=== PATIENT | female | born 1950 ===

== ENCOUNTER → 2020-04-24 09:57 | Outpatient (BNVA) | payer MEDICARE, SELFPAY | PROVIDERS: PCP Family Medicine; Referring Provider Family Medicine; Visit Provider Surgery | DX: Z85.3 Personal history of malignant neoplasm of breast (principal) | CPT/HCPCS: 99213 ==

== ENCOUNTER 2020-05-03 11:39 | Emergency (ER) | payer MEDICARE, SELFPAY ==
--- NOTE | 2020-05-03 13:00 | ED_ITS ---
HPI - SOB/Dyspnea General Chief Complaint: Dyspnea Stated Complaint: sob Time Seen by Provider: 05/03/20 13:00 Source: patient Mode of arrival: ambulatory Limitations: no limitations History of Present Illness HPI Narrative: patient has been using her nebulizer for 3-4 days but still is wheezing. Patient states that her daughter is in the house. Not currently on steroids MD elicited complaint: shortness of breath and asthma attack Pertinent past history: asthma Onset (ago): week(s) Timing: intermittent Severity: mild Exacerbating factors: movement Known history of: asthma Associated symptoms: denies other symptoms Treatment prior to arrival: bronchodilator Related Data Home Medications Medication Instructions Recorded Confirmed albuterol sulfate mg INHALATION Q4H 04/24/20 amlodipine 2.5 mg tablet 2.5 mg PO DAILY 04/24/20 atorvastatin 40 mg tablet mg PO 04/24/20 cholecalciferol (vitamin D3) 25 25 mcg PO DAILY 04/24/20 mcg (1,000 unit) capsule clonazepam 0.5 mg tablet 0.5 mg PO BEDTIME 04/24/20 fluoxetine 20 mg capsule 20 mg PO DAILY 04/24/20 fluticasone 250 mcg-salmeterol 50 INHALATION 04/24/20 mcg/dose blistr powdr for inhalation ibuprofen 800 mg tablet mg PO 04/24/20 irbesartan 300 mg tablet 300 mg PO QAM 04/24/20 melatonin 5 mg tablet 5 mg PO BEDTIME 04/24/20 montelukast 10 mg tablet 10 mg PO DAILY 04/24/20 omeprazole 20 mg capsule,delayed 20 mg PO QAM 04/24/20 release tamoxifen 20 mg tablet 20 mg PO BEDTIME 04/24/20 tiotropium bromide 18 mcg capsule 1 cap INHALATION DAILY 04/24/20 with inhalation device Previous Rx's Medication Instructions Recorded prednisone 60 mg PO DAILY #15 tab 05/03/20 Allergies Allergy/AdvReac Type Severity Reaction Status Date / Time penicillin G [Penicillin G] Allergy Mild RASH Verified 05/03/20 15:02 potassium [POTASSIUM] Allergy Unknown PEDAL EDEMA Verified 05/03/20 15:02 [facility] Past Medical History Medical History Asthma Asthma History of breast cancer Hypertension Smoker Surgical History History of bronchoscopy (~04/28/11) History of colonoscopy (~09/10/08) History of esophagogastroduodenoscopy (EGD) (~08/09/11) History of excision of mass (~06/01/19) History of lumpectomy of right breast (~05/10/19) History of right breast biopsy (~04/26/19) History of toe surgery Family History Family History Mother History of breast cancer Sister History of breast cancer History of colon polyps History of colitis History of colon cancer Maternal Aunt History of breast cancer Social History Social History (Updated 04/24/20 @ 10:15 by Kathrin Mason Coby) Alcohol intake: never Smoking Status: Light tobacco smoker Use of substances other than those prescribed or required for medical reasons: No Advance Directives: No Advance Directives Information Provided: No Physical Exam Vital Signs: Vital Signs: Vital Signs Temp Pulse Resp BP Pulse Ox 05/03/20 15:02 98.3 F 77 18 124/63 92 05/03/20 14:00 98.4 F 77 18 128/56 L 92 05/03/20 13:44 98 05/03/20 13:42 98.4 F 94 20 144/75 H 59 L Body Mass Index 24.7 Course Course Course Narrative: nurse concerned about hypoxia, turned off O2, oxygen sat 99% Reevaluation(s) Reevaluation #1: breathing much better, pulse ox 93% on room air MDM - SOB/Dyspnea MDM Narrative Medical decision making narrative: started steroids, breathing much better, COVID negative, will dc home Differential Diagnosis Differential diagnosis: Likely acute exacerbation of chronic obstructive airways disease and asthma with exacerbation Lab Data Labs: Lab Results 05/03/20 Range/Units 13:38 Coronavirus (PCR) NEGATIVE (Negative) Discharge Plan Discharge Clinical Impression: Acute exacerbation of chronic obstructive airways disease Asthma Qualifiers: Asthma severity: mild Asthma persistence: persistent Asthma complication type: with acute exacerbation Qualified Code(s): J45.31 - Mild persistent asthma with (acute) exacerbation Patient Disposition: Home, Self-Care Instructions: Asthma (ED), COPD (Chronic Obstructive Pulmonary Disease) (ED) Additional Instructions: return for worsening shortness of breath Prescriptions: New prednisone 20 mg tablet 60 mg PO DAILY Qty: 15 RF: 0 No Action ibuprofen 800 mg tablet PO RF: 0 melatonin 5 mg tablet 5 mg PO BEDTIME RF: 0 Spiriva with HandiHaler 18 mcg capsule, w/inhalation device 1 cap inhalation DAILY RF: 0 irbesartan 300 mg tablet 300 mg PO QAM RF: 0 montelukast 10 mg tablet 10 mg PO DAILY RF: 0 amlodipine 2.5 mg tablet 2.5 mg PO DAILY RF: 0 clonazepam 0.5 mg tablet 0.5 mg PO BEDTIME RF: 0 albuterol sulfate 2.5 mg /3 mL (0.083 %) solution for nebulization inhalation Q4H RF: 0 fluticasone propion-salmeterol 250-50 mcg/dose blister with device inhalation RF: 0 cholecalciferol (vitamin D3) 25 mcg (1,000 unit) capsule 25 mcg PO DAILY RF: 0 omeprazole 20 mg capsule,delayed release(DR/EC) 20 mg PO QAM RF: 0 tamoxifen 20 mg tablet 20 mg PO BEDTIME RF: 0 fluoxetine 20 mg capsule 20 mg PO DAILY RF: 0 atorvastatin 40 mg tablet PO RF: 0 Referrals: Vivienne Marques MD [Primary Care Provider] - 2 days
[2020-05-03 13:42] VITALS: BP 144/75; PULSE 94; RESP 20; TEMP 36.9; O2SAT 59
[2020-05-03 13:44] VITALS: O2SAT 98
--- NOTE | 2020-05-03 13:44 | PC.NURSE ---
currently awaiting carpenter helper to triage patient, patient understands some [place]ong [place]er, covid swab performed, pt put on lunchroom monitor,- nsr 80s, patient began coughing and her o2 sat dropped to 58-59%, patient placed on 4l o2 and recovered to 985 with deep breathing, will continue to monitor.
[2020-05-03] MEDS: predniSONE 20 MG TABLET 60 MG PO (13:58)
--- NOTE | 2020-05-03 13:58 | PC.NURSE ---
patient medicated per order, rt coming to do updraft, continuing to wait for hand tool filer
[2020-05-03 14:00] VITALS: BP 128/56; PULSE 77; RESP 18; TEMP 36.9; O2SAT 92; BMI 24.7
--- NOTE | 2020-05-03 14:03 | PC.NURSE ---
REGINA, DAUGHTER TO BE CALLED WITH UPDATES, AND FOR RIDE HOME. REGINA: [phone]
[2020-05-03 14:51] LABS: SARS COV2 PCR INHOUSE NEGATIVE (Negative)
[2020-05-03 15:02] VITALS: BP 124/63; PULSE 77; RESP 18; TEMP 36.8; O2SAT 92
--- NOTE | 2020-05-03 15:19 | PC.NURSE ---
DAUGHTER REGINA CALLED [phone] WISHES TO BE CALLED WHEN HER MOTHER NEEDS TO BE PICKED UP.
--- NOTE | 2020-05-03 15:20 | PC.NURSE ---
PATIENT A&OX3, SPEAKING IN FULL SENTENCES, DAUGHTER CALLED NUMBER GIVEN IN PREVIOUS NOTE AND WILL BE HER RIDE HOME WHEN DISCHARGED. PATIENT STATES SHE DOES FEEL BETTER THAN WHEN SHE CAME IN, VITALS ARE STABLE ALTHOUGH O2 SAT GOING BETWEEN 92-94% ON ROOM AIR, WILL CONTINUE TO MONITOR.
== END 2020-05-03 16:04 | disposition home or self-care (01) ==
PROVIDERS: Emergency Provider Emergency Medicine; PCP Family Medicine
DX: J45.31 Mild persistent asthma with (acute) exacerbation (principal); F17.200 Nicotine dependence, unspecified, uncomplicated; Z20.828 Contact with and (suspected) exposure to other viral communicable diseases; Z71.6 Tobacco abuse counseling; Z79.899 Other long term (current) drug therapy
CPT/HCPCS: 87635; 99284

== ENCOUNTER 2020-07-08 14:17 | Emergency (ER) | payer MEDICARE, SELFPAY ==
[2020-07-08 14:43] VITALS: BP 183/96; PULSE 83; RESP 16; TEMP 36.5; O2SAT 97; BMI 59.3
--- NOTE | 2020-07-08 14:48 | XR_ITS ---
EXAMINATION: XR CHEST CLINICAL INFORMATION: Asthma. History right breast cancer status post lumpectomy 05/10/2019. COMPARISON: Chest radiographs 03/08/2018, 05/25/2017; CT abdomen 05/25/2017. TECHNIQUE: Frontal view of the chest was obtained. FINDINGS: There is old pleural parenchymal scarring apical right upper lobe similar to prior study 2018. Irregular convexity at right medial diaphragm is stable from prior radiographs and consistent with areolar tissue on abdomen CT. The lungs show no airspace consolidation or interval groundglass opacity or effusion. The heart is normal in size. The hilar contours are stable. There is a sliding hiatal hernia again seen, or approximately 5.7 cm in diameter. No visible acute bony abnormality. XR/XR chest 1V IMPRESSION: No acute intrathoracic disease.
== END 2020-07-08 20:59 | disposition left against medical advice (07) ==
PROVIDERS: Emergency Provider Student in an Organized Health Care Education/Training Program; PCP Family Medicine
DX: J45.909 Unspecified asthma, uncomplicated (principal)
CPT/HCPCS: 71045; 99282; 99283

== ENCOUNTER → 2020-07-28 10:26 | Outpatient (BNV) | payer MEDICARE, SELFPAY | PROVIDERS: PCP Family Medicine; Visit Provider Internal Medicine | DX: C50.911 Malignant neoplasm of unspecified site of right female breast (principal) | CPT/HCPCS: 99212; 99213; 99214; G2211 ==

== ENCOUNTER 2020-11-10 10:34 | Outpatient (REF) | payer MEDICARE, SELFPAY | END 2020-11-10 10:35 | disposition home or self-care (01) | LOC: HO.LAB 10:34 | PROVIDERS: Visit Provider Internal Medicine | DX: Z20.822 Contact with and (suspected) exposure to COVID-19 (principal) | CPT/HCPCS: C9803; U0003; U0005 ==

== ENCOUNTER 2021-01-07 08:25 | Outpatient (REF) | payer MEDICARE, SELFPAY ==
--- NOTE | ~2021-01-07 | XR_ITS ---
EXAMINATION: XR CHEST CLINICAL INFORMATION: Cough, shortness of breath COMPARISON: 07/08/2020 TECHNIQUE: 2 views of the chest were obtained. FINDINGS: There is an ill-defined opacity posteriorly on the lateral view only, possibly at the left lung base. No pleural effusion. Slight increase in interstitial markings and peribronchial cuffing which may be inflammatory. Stable cardiomediastinal silhouette. XR/XR chest 2V IMPRESSION: Subtle interstitial prominence and possible ill-defined opacity posteriorly in the left lower lobe on the lateral view. Recommend short-term follow-up chest radiographs or chest CT to ensure resolution.
== END 2021-01-07 08:26 | disposition home or self-care (01) ==
LOC: HO.XRAY 08:25
PROVIDERS: Absent Provider Family Medicine; PCP Family Medicine; Visit Provider Nurse Practitioner Family
DX: R05 Cough (principal); R06.02 Shortness of breath
CPT/HCPCS: 71046

== ENCOUNTER → 2021-01-09 10:44 | Outpatient (BNVA) | payer MEDICARE, SELFPAY | PROVIDERS: PCP Family Medicine; Visit Provider Internal Medicine Pulmonary Disease | DX: J44.9 Chronic obstructive pulmonary disease, unspecified (principal); R06.00 Dyspnea, unspecified; R91.8 Other nonspecific abnormal finding of lung field | CPT/HCPCS: 99202 ==

== ENCOUNTER 2021-02-04 10:45 | Inpatient (IN) | payer MEDICARE, SELFPAY ==
[2021-02-04] VITALS (8 sets, daily range): BP systolic 107–130; BP diastolic 60–76; PULSE 93–104; RESP 16–26; TEMP 35.5–37.2; O2SAT 88–100; BMI 23.6
--- NOTE | ~2021-02-04 | CT_ITS ---
EXAMINATION: CT FACIAL BONES WITHOUT CONTRAST CLINICAL INFORMATION: Fall COMPARISON: Head CT obtained the same day TECHNIQUE: Axial images through the facial bones without contrast. Sagittal and coronal reconstructions on the technologist workstation were performed. This CT examination was performed using dose optimization techniques as appropriate, variously including the following: *Automated exposure control *Adjustment of mA and/or kV according to patient size (this includes techniques or standardized protocols for targeted exams where dose is matched to indication/reason for exam; i.e. extremities or head) *Use of iterative reconstruction technique DLP: 363 mGy-cm FINDINGS: There is no acute maxillofacial fracture. The pterygoid plates are intact. The zygomatic arches are intact. The lamina papyracea are intact. The orbital rims are intact. The paranasal sinuses are well-aerated. There are mild inflammatory changes with membranous soft tissue thickening in the right frontal and maxillary and sphenoid sinuses. The nasal septum is midline. The ostiomeatal complexes are clear. The lamina papyracea are intact. The ethmoid roofs are symmetric. The carotid canals are normally covered by bone. No maxillary periapical disease is seen. The mastoid air cells and visualized middle ear cavities are well-aerated. The orbits are normal. The TMJs are unremarkable. The imaged portions of the brain demonstrate no acute abnormality. CT/CT facial bones wo con IMPRESSION: Mild inflammatory changes in the sinuses. No fracture seen.
--- NOTE | ~2021-02-04 | US_ITS ---
EXAMINATION: US VENOUS ULTRASOUND WITH DOPPLER LOWER EXTREMITY, BILATERAL CLINICAL INFORMATION: Pulmonary emboli. Evaluate for DVT COMPARISON: None TECHNIQUE: Ultrasound of the deep veins is performed from the hip to the calf with compression sonography and color and pulse Doppler assessment. Spectral analysis with color-flow imaging is performed. FINDINGS: RIGHT: There is normal venous compression and respiratory variation and augmented flow. The visualized common femoral vein, superficial femoral vein, profunda femoral vein, popliteal vein, and the trifurcation region shows no evidence of deep venous thrombosis. There is no significant popliteal fossa cyst. LEFT: There is normal venous compression and respiratory variation and augmented flow. The visualized common femoral vein, superficial femoral vein, profunda femoral vein, popliteal vein, and the trifurcation region shows no evidence of deep venous thrombosis. There is no significant popliteal fossa cyst. If the patient's symptoms persist, followup ultrasound in 5 days 7 days might be of value to exclude proximal propagation from a non-visualized calf vein. US/US venous duplex LE BI IMPRESSION: No DVT demonstrated in the bilateral lower extremity.
--- NOTE | ~2021-02-04 | CT_ITS ---
EXAMINATION: CT HEAD WITHOUT CONTRAST CLINICAL INFORMATION: Fall COMPARISON: Previous brain MRI September 2018 TECHNIQUE: Contiguous axial imaging was performed from the skull base to vertex without intravenous administration of contrast. This CT examination was performed using dose optimization techniques as appropriate, variously including the following: *Automated exposure control *Adjustment of mA and/or kV according to patient size (this includes techniques or standardized protocols for targeted exams where dose is matched to indication/reason for exam; i.e. extremities or head) *Use of iterative reconstruction technique DLP: 753 mGy-cm FINDINGS: There is no evidence of an extra-axial collection. There is no evidence of intra-axial or extra-axial hemorrhage. There is age-appropriate prominence of the ventricles and extra-axial CSF spaces. There is mild periventricular white matter disease. No mass, mass effect or infarct is seen. Review at bone windows is normal. No skull fracture is seen. There are mild inflammatory changes of the right frontal and maxillary sinuses. CT/CT head/brain wo con IMPRESSION: No acute findings.
--- NOTE | ~2021-02-04 | CT_ITS ---
EXAMINATION: CT CERVICAL SPINE WITHOUT CONTRAST CLINICAL INFORMATION: Dizziness. Trauma. COMPARISON: None TECHNIQUE: Axial images through the cervical spine without contrast. Sagittal and coronal reconstructions on the technologist workstation were performed. This CT examination was performed using dose optimization techniques as appropriate, variously including the following: *Automated exposure control *Adjustment of mA and/or kV according to patient size (this includes techniques or standardized protocols for targeted exams where dose is matched to indication/reason for exam; i.e. extremities or head) *Use of iterative reconstruction technique DLP: 344 mGy-cm FINDINGS: There is slight head tilt to the left, curvature of the proximal cervical spine to the right and lower cervical and upper thoracic spine to the left. Bone alignment is otherwise normal. No fracture or dislocation is seen. There is degenerative spondylosis at C3-C4, C4-C5 and C5-C6. There is mild disc space narrowing at C5-C6. Prevertebral soft tissues are normal. There is a left thyroid nodule. This measures approximately 1 x 1.5 cm. This is increased in size from previous chest CT scans. Follow-up thyroid ultrasound recommended. The visualized proximal thoracic esophagus is slightly distended and air-filled. CT/CT cervical spine wo con IMPRESSION: Degenerative changes. No fracture or dislocation seen. Left thyroid nodule increased in size from prior exams. Follow-up thyroid ultrasound recommended.
--- NOTE | ~2021-02-04 | CT_ITS ---
EXAMINATION: CT ANGIOGRAM OF THE CHEST WITH AND WITHOUT CONTRAST (CT PULMONARY ANGIOGRAM FOR PE) CLINICAL INFORMATION: Reason for Exam sob c cough hx of covid hypoxic ? pe COMPARISON: Previous chest x-ray most recent December [address] April 2012 TECHNIQUE: Prior to contrast administration, noncontrast localization images were obtained. Subsequently, multidetector volumetric imaging was performed from the thoracic inlet to below the diaphragms following the administration of 65 mL Omnipaque 350 intravenous contrast. No contrast reaction reported Sagittal, coronal, and MIP oblique sagittal reformatted images were obtained on the CT workstation, uploaded to PACS, and reviewed. This CT examination was performed using dose optimization techniques as appropriate, variously including the following: *Automated exposure control *Adjustment of mA and/or kV according to patient size (this includes techniques or standardized protocols for targeted exams where dose is matched to indication/reason for exam; i.e. extremities or head) *Use of iterative reconstruction technique Total exam dose-length product 360 mGy-cm FINDINGS: QUALITY OF STUDY/CONTRAST BOLUS: Satisfactory. PULMONARY ARTERIES: There are multiple segmental and subsegmental left pulmonary emboli. There are smaller subsegmental right lower lobe pulmonary emboli. THORACIC AORTA: No aneurysm or dissection. LUNG: There is evidence of emphysema. There is volume loss to the right upper lobe. There is atelectasis and bronchiectasis in the right upper lobe. This is similar to 2012 exam. There are increased peripheral interstitial markings in the right upper lobe and right middle lobe and pleural thickening likely related to chest wall radiation. There are new scattered nodular opacities seen in the left upper and left lower lobes and the posterior basal segment of the right lower lobe. The largest measures approximately 1 cm. PLEURA: No pleural effusion or pneumothorax. MEDIASTINUM: There is a probable small esophageal hernia. The esophagus is dilated and filled. The heart does not appear enlarged. There is no pericardial effusion. There are no enlarged hilar or mediastinal lymph nodes.. CHEST WALL/AXILLA: No axillary or internal mammary lymphadenopathy. OSSEOUS STRUCTURES: There are degenerative changes of the spine. UPPER ABDOMEN: Unremarkable. No reflux of contrast into the hepatic veins to suggest elevated right heart pressures. CT/CT angio chest PE protocol IMPRESSION: Bilateral pulmonary emboli, left greater than right. Probable small esophageal hernia. Dilated fluid-filled thoracic esophagus. Possible aspiration should be considered. Stable right upper lobe volume loss, atelectasis and bronchiectasis. Probable post chest wall radiation changes in the right middle and right upper lobes. New scattered small nodular opacities, left greater than right. Chest CT appearance is nonspecific. This may represent an infectious or inflammatory process. Neoplasm neoplasm cannot be excluded and chest CT follow-up is recommended. Findings were discussed with Lexie Reeves by telephone on 02/04/2021 at 4:30 PM. VTE:
--- NOTE | 2021-02-04 11:11 | ECG_ITS ---
Test Reason : FALL Blood Pressure : / mmHG Vent. Rate : 101 BPM Atrial Rate : 101 BPM P-R Int : 128 ms QRS Dur : 122 ms QT Int : 382 ms P-R-T Axes : 070 058 029 degrees QTc Int : 495 ms Sinus tachycardia with Premature atrial complexes Non-specific intra-ventricular conduction delay Abnormal ECG When compared to the previous EKG of 23 jul 2018, Intra-ventricular conduction delay present Referred By: Lexie Mcgrath Electronically Signed By:CEDRIC HOLBROOK
[2021-02-04] MEDS: Lidocaine HCl 1 % MPF 5 ML VIAL SUBCUT (11:22)
[2021-02-04] MEDS: 0.9 % Sodium Chloride 1,000 ML 999 ML IVCONT ×2 (11:22→17:40)
[2021-02-04 11:54] LABS: MANUAL DIFF FLAG NO
[2021-02-04 11:55] LABS: Venous Blood Gas Refer to POC result
[2021-02-04 11:56] LABS: VBG Base Excess -5.3 mmol/L; VBG HCO3 20 mmol/L (22-26); VBG pCO2 41 mmHg; VBG pO2 59 mmHg
[2021-02-04 11:56] LABS: Basophils Absolute Auto 0.1 X10*3/uL (0.0-0.2); Basophils Percent Auto 0.5 % (0-2); Eosinophils Absolute Auto 0.8 X10*3/uL (0.0-0.4); Eosinophils Percent Auto 5.7 % (0-4); Hematocrit 32.6 % (37-47); Hemoglobin 9.9 g/dl (12.0-16.0); Imm Gran Abs Auto 0.08 X10*3/uL (0.00-0.03); Imm Gran Pct Auto 0.6 % (0.0-0.4); Lymphocytes Absolute Auto 1.2 X10*3/uL (1.2-4.9); Lymphocytes Percent Auto 8.4 % (20-40); Mean Corpuscular HGB Conc 30.4 g/dl (31.0-35.0); Mean Corpuscular Hemoglobin 25.5 pg (27.0-33.0); Mean Platelet Volume 10.4 fL (9.4-12.3); Monocytes Absolute Auto 0.5 X10*3/uL (0.1-1.2); Monocytes Percent Auto 3.7 % (2-11); Neutrophils Absolute Auto 11.5 X10*3/uL (2.0-8.3); Neutrophils Percent Auto 81.1 % (45-73); Platelet Count 186 X10*3/uL (160-400); Red Blood Count 3.88 X10*6/uL (4.20-5.50); Red Cell Distribution Width 15.1 % (11.0-16.0); White Blood Count 14.2 X10*3/uL (4.8-10.8)
[2021-02-04 12:05] LABS: INTERNATIONAL NORM RATIO 1.1 (0.9-1.1)
[2021-02-04 12:19] LABS: Alanine Aminotransferase 17 U/L (0-31); Albumin Level 3.4 g/dL (3.5-5.0); Alkaline Phosphatase 49 U/L (39-117); Anion Gap 13 (12-20); Aspartate Amino Transferase 35 U/L (5-31); Bilirubin Total 0.4 mg/dL (0.0-1.0); Blood Urea Nitrogen 26 mg/dL (9-16); Calcium 8.8 mg/dL (8.4-10.2); Carbon Dioxide 23 mmol/L (22-29); Chloride 113 mmol/L (96-108); Creatinine Clr Calc Pharmacy 40.5; Estimated Glomerular Filt Rate 47; Glucose Random 157 mg/dL (60-115); Potassium 4.5 mmol/L (3.3-5.1); Sodium 144 mmol/L (135-145); Total Protein 6.3 g/dL (6.5-8.0)
[2021-02-04 12:23] LABS: B Type Natriuretic Peptide 301 pg/mL (<100)
[2021-02-04 12:30] LABS: Troponin-I High Sensitivity 123.4 ng/L (<3.5-17.0)
[2021-02-04] MEDS: Morphine Sulfate 4 MG/ML CARTRIDGE IVPUSH (13:03)
[2021-02-04 13:29] LABS: COVID-19 Test Negative (Negative)
--- NOTE | 2021-02-04 14:00 | ED.FALL ---
HPI - Fall General Chief Complaint: Fall Stated Complaint: DIZZY W/FALL, HIT HEAD,+LOC PER PT Time Seen by Provider: 02/04/21 11:04 Source: patient and family Mode of arrival: ambulatory Limitations: no limitations and language barrier History of Present Illness HPI Narrative: 70-year-old female with a past medical history of vertigo, asthma-COPD overlap syndrome, pulmonary nodules, hypertension and history of breast cancer presenting to the ED via EMS after she had a vertigo episode where she was sitting on the toilet stood up from the toilet felt dizzy fell forward hitting the Fridge and sustaining a laceration to her lip and she also lost a tooth on her dentures in her tooth is the 1 that went through her lip. She also has skin tears to bilateral elbows. The patient reports that her dizziness felt like the normal vertical dizziness that she normally gets. She did not have any other symptoms before she actually fell which include headaches, change in vision, chest pain, shortness of breath or any other symptoms. Patient denies being on any blood thinners. MD complaint: fall Onset (ago): minute(s) (Prior to arrival) Fall from: standing Fall witnessed: yes, by family Place fall occurred: home Loss of consciousness: none Prolonged down time: no Symptoms prior to fall: dizziness (Due to history of vertigo) Location of injury: head, face and mouth Location of injury - extremities: bilateral: elbow Severity: moderate Quality: aching Associated symptoms (after fall): other (Only pain) Related Data Home Medications Medication Instructions Recorded Confirmed albuterol sulfate 2.5 mg INHALATION Q4H 04/24/20 01/02/21 amlodipine 2.5 mg tablet 2.5 mg PO DAILY 04/24/20 01/02/21 atorvastatin 40 mg tablet 40 mg PO DAILY 04/24/20 01/02/21 cholecalciferol (vitamin D3) 25 25 mcg PO DAILY 04/24/20 01/02/21 mcg (1,000 unit) capsule clonazepam 0.5 mg tablet 0.5 mg PO BEDTIME 04/24/20 01/02/21 fluoxetine 20 mg capsule 20 mg PO DAILY 04/24/20 01/02/21 ibuprofen 800 mg tablet 800 mg PO DAILY 04/24/20 01/02/21 irbesartan 300 mg tablet 300 mg PO QAM 04/24/20 01/02/21 melatonin 5 mg tablet 5 mg PO BEDTIME 04/24/20 01/02/21 montelukast 10 mg tablet 10 mg PO DAILY 04/24/20 01/02/21 omeprazole 20 mg capsule,delayed 20 mg PO QAM 04/24/20 01/02/21 release tamoxifen 20 mg tablet 20 mg PO BEDTIME 04/24/20 01/02/21 Previous Rx's Medication Instructions Recorded fluticasone fur. 200 mcg-umeclid 1 inh INHALATION DAILY 30 Days #1 01/09/21 62.5 mcg-vilant 25 mcg ea inhalat.powder (Trelegy Ellipta) ipratropium 0.5 mg-albuterol 3 mg 3 ml INHALATION Q4H PRN 30 Days 01/09/21 (2.5 mg base)/3 mL nebulization #270 ml soln Allergies Allergy/AdvReac Type Severity Reaction Status Date / Time penicillin G [Penicillin G] Allergy Mild RASH Verified 01/09/21 10:44 potassium [POTASSIUM] Allergy Unknown PEDAL EDEMA Verified 01/09/21 10:44 Review of Systems Review of Systems: Constitutional : No Fever, No Chills, No Night Sweats, No Fatigue, No Malaise ENT/Mouth : No Ear Pain, No Nasal Congestion, No Sinus Pain, No sore throat, No Rhinorrhea Eyes: No Eye Pain, No Swelling, No Redness, No Foreign Body, No Discharge, No Vision Changes Cardiovascular : No Chest Pain, No SOB, No Dyspnea on Exertion, No Orthopnea, No Palpitations Respiratory : No Cough, No Sputum, No Wheezing, No Dyspnea Gastrointestinal : No Nausea, No Vomiting, No Diarrhea, No Constipation, No abdominal Pain, No Hematochezia, No Melena Genitourinary : No Dysuria, No Urinary Frequency, No Urinary Incontinence, No Urgency, No Flank Pain Musculoskeletal : No joint pain, No Myalgias Skin : Positive lacerations Neuro : Positive dizziness with head injury, No Focal weakness, no general weakness, No Numbness, No Paresthesias, No Loss of Consciousness, No Headache Yes all other systems are reviewed and are negative [facility] Past Medical History Attestation statement: The following information was validated with the patient. Medical History Asthma History of breast cancer Hypertension Smoker Surgical History History of bronchoscopy (~04/28/11) History of colonoscopy (~09/10/08) History of esophagogastroduodenoscopy (EGD) (~08/09/11) History of excision of mass (~06/01/19) History of lumpectomy of right breast (~05/10/19) History of right breast biopsy (~04/26/19) History of toe surgery Family History Family History Mother History of breast cancer Sister History of breast cancer History of colon polyps History of colitis History of colon cancer Maternal Aunt History of breast cancer Social History Social History Alcohol intake: former Patient Tobacco Use Status: Former Tobacco user Quit Date: 05/2020 Advance Directives: No Advance Directives Information Provided: No Physical Exam Vital Signs: Vital Signs: Last Vital Signs Temp 95.9 F L 02/04/21 15:05 Pulse 93 02/04/21 16:33 Resp 16 02/04/21 16:33 BP 125/72 02/04/21 16:33 Pulse Ox 98 02/04/21 16:33 Oxygen Flow Rate 4 02/04/21 10:50 Body Mass Index 23.6 Vital signs have been reviewed as normal and appeared to be correct. Blood pressure normal. Heart rate tachycardic at 104. Respiration rate tachypneic at 26. Temperature normal. Oxygen saturation low at 84% on room air therefore placed on 4 L of nasal cannula oxygen and is now at 99%. Appearance: Alert. Oriented X3. In pain and mild respiratory distress. Head: Patient with ecchymosis to chin. Has a laceration through her lower lip that is deep. No active bleeding at this time or foreign bodies Able to rotate head bilaterally. Eyes: PERRLA. EOMI. No nystagmus noted. Conjunctiva and sclera normal. Eyelids normal. Corneal reflex normal. ENT: EAC normal. TM's Normal. No septal hematomas noted. No hemotympanum is noted. Hearing normal. Pharynx normal. Uvula midline. tongue midline. Moist mucous membranes. No trismus noted. No drooling noted. No muffled voice noted. No nystagmus noted. To left aspect of lip patient has an irregular 2 cm multiple flap laceration is not through and through. Patient also has front left upper missing denture/fracture. Although she does not have any real teeth. Neck: Normal inspection. Neck supple. FROM. No adenopathy. Trachea midline. No meningeal signs. Nontender. Reflexes intact bilateral and distally on all 4 extremities. Neuro intact bilaterally in the [place] all 4 extremities. CVS: Normal heart rate and rhythm. Heart sound normal. No murmurs noted. Pulses normal throughout. Respiratory: Mild respiratory distress with decreased breath sounds. Painless inspiration. No wheezes/rales/rhonchi noted. Chest nontender. No accessory muscle usage noted or decreased air movement noted. Abdomen: Soft and nontender. Bowel sounds normal in all 4 quadrants. No distention noted. No organomegaly noted. No visible injury noted. Back: Full range of motion noted. No signs of trauma. Reflexes intact bilateral and distally in all 4 extremities. Neuro intact bilateral and this in all 4 extremities. No lacerations/ecchymosis or tenderness noted. Skin: Skin warm and dry. Normal skin color. Normal skin turgor. No rashes/lesions/lacerations noted. Extremities: Bilateral elbows worse on the left than the right skin tears noted. No active bleeding or foreign bodies or signs of infection noted. No calf tenderness is noted. No lower extremity edema. Otherwise all other Extremities exhibit normal range of motion and nontender. Able to shrug shoulders bilaterally and keep up against resistance. Neuro: Oriented X 3. No motor deficit. No sensory deficit. Reflexes normal. Moving all extremities. No focal motor deficits. Cranial nerves II-XI intact bilaterally. Facial strength normal. Normal cognition. Speech normal. Gait normal. Strength 5/5 throughout. No pronator drift. No tremor noted. No fasciculations noted. No rigidity noted. Muscle tone normal throughout. No asterixis noted. [id number] test normal. Heel to boyer test normal. Tandem gait normal. Does not sway with eyes open. Romberg test negative. Rapid alternating movement upper extremity normal. Rapid alternating movement lower extremity normal. Hand drop from overhead Misses face. NIHSS score 0. Course Course Course Narrative: 11:11am - 70-year-old female presenting to the ED after she had vertical episode where she stood up from the toilet fell forward injuring her head/face on the Fridge no loss of consciousness or prolonged downtime. Witnessed by her daughters. Not on any blood thinners. Denies any other symptoms prior to the fall. Reports only pain after the fall. On exam patient is alert and orientated. In pain in mild respiratory distress with oxygen saturation at 84% on room air therefore placed on 4 L and now at 99% on room air. Mildly tachycardic and tachypneic as well. Although lungs clear to auscultation just decreased breath sounds. CV RRR. Patient has of lower lip laceration that is deep and she also has missing teeth. Although airway is intact. No trismus or drooling is noted. Abdomen is soft nontender. Bilateral elbows with skin tears no active bleeding or bony tenderness. She has a normal neuro exam. Plan: Labs, EKG, CT scan of brain/cervical spine/facial bones and CTA of chest for PE, VBG. Provide a L of IV fluids, 4 mg of Zofran and 4 mg of morphine for the patient's pain and re-evaluate. Reevaluation(s) Reevaluation #1: [place] [address]. Patient with mild baseline anemia mildly decreased when compared to prior. VBG within normal limits. Chloride 113. BUN 26. Random glucose 157. AST 35. Total CPK is 150. Troponin is 123.4. BNP is 301. Otherwise all other labs are within normal limits. COVID swab is negative. - EKG is sinus tachycardia with premature atrial complexes with a ventricular rate of 101 she is noted to have a new right bundle branch block that is new when compared to the EKG on 07/23/2018. Otherwise no acute ischemic changes are noted. - CT scan of brain/cervical spine/facial bones and CT of chest for PE all pending at this time. Time: 14:40 Reevaluation #2: - repeat troponin 746.7. - patient is in CT scan right now. - will repeat EKG at this time and consult with Cardiology. Daughters at bedside understand and agree to this plan. Time: 15:36 Reevaluation #3: - CT of chest for PE just returned at this time and revealed bilateral pulmonary embolisms left greater than right. She also has a small esophageal hernia with dilated fluid-filled thoracic esophagus possibly aspiration most likely from the patient swallowing blood. She also has some chronic changes. She also has new scattered small nodular opacities left greater than right. Neoplasm versus inflammatory versus infectious process cannot be ruled out. - therefore I consulted with Dr. Reeves the quality assurance group leader and he reported that the patient should be started on heparin and she should be admitted for echocardiogram tomorrow. I explained this to the patient her family at bedside and they understand and agree with the plan. - also at this time patient will need blood cultures and lactic acid I will provide some fluids and antibiotics. - CT scan of cervical spine revealed degenerative changes no acute fractures or dislocations noted. She is also noted to have a left thyroid nodule increased in size from prior exams. Follow-up thyroid ultrasound recommended. - CT scan of brain without contrast revealed chronic changes no acute processes were noted. - therefore will plan to admit at this time with what was discussed above. Patient and family at bedside understand agree with this plan. Dr. Webber to admit. Time: 16:39 Additional Reevaluation(s): Patient is now status post laceration repair to lower lip. Patient tolerated procedure well. No complications. Seven nonabsorbable sutures placed 5-0. Patient will be admitted to Dr. Webber at this time. Procedures Laceration Laceration 1: Site: lip Side (If applicable): left Size (cm): 2 Description: flap and irregular Depth: involves muscle layer Local Anesthetic: lidocaine 1% Amount of anesthesia used (mL): 3 Pre-repair: wound explored, irrigated extensively, deep structures intact and wound margins revised Skin layer closed with: nylon Size (cm): 5-0 Number of sutures: 7 Technique: simple, interrupted Subcutaneous layer closed with: vicryl MDM - Fall Medical Records Attestation: I reviewed the patient's medical records. Lab Data Attestation: I reviewed the patient's lab results. Result diagrams: 02/04/21 11:41 02/04/21 11:41 Labs: Lab Results 02/04/21 02/04/21 02/04/21 Range/Units 11:41 11:41 11:41 WBC 14.2 H (4.8-10.8) X10*3/uL RBC 3.88 L (4.20-5.50) X10*6/uL Hgb 9.9 L (12.0-16.0) g/dl Hct 32.6 L (37-47) % MCV 84.0 (80-98) fL MCH 25.5 L (27.0-33.0) pg MCHC 30.4 L (31.0-35.0) g/dl RDW 15.1 (11.0-16.0) % Plt Count 186 D (160-400) X10*3/uL MPV 10.4 (9.4-12.3) fL Immature Gran % (Auto) 0.6 H (0.0-0.4) % Neut % (Auto) 81.1 H (45-73) % Lymph % (Auto) 8.4 L (20-40) % [place] % (Auto) 3.7 (2-11) % Eos % (Auto) 5.7 H (0-4) % Baso % (Auto) 0.5 (0-2) % Lymph # (Auto) 1.2 (1.2-4.9) X10*3/uL [place] # (Auto) 0.5 (0.1-1.2) X10*3/uL Eos # (Auto) 0.8 H (0.0-0.4) X10*3/uL Baso # (Auto) 0.1 (0.0-0.2) X10*3/uL Abs Immat Gran (auto) 0.08 H (0.00-0.03) X10*3/uL Absolute Neuts (auto) 11.5 H (2.0-8.3) X10*3/uL Absolute Nucleated RBC 0.000 (0.0-0.012) X10*3/uL Nucleated RBC % (auto) 0.0 (0.0-0.2) /100WBC PT 12.0 (9.9-13.0) SEC INR 1.1 (0.9-1.1) PTT (Heparin Protocol) (53-77.9) SEC VBG pH (7.32-7.43) VBG pCO2 mmHg VBG pO2 mmHg VBG HCO3 (22-26) mmol/L VBG O2 Saturation % VBG Base Excess mmol/L Sodium (135-145) mmol/L Potassium (3.3-5.1) mmol/L Chloride (96-108) mmol/L Carbon Dioxide (22-29) mmol/L Anion Gap (12-20) BUN (9-16) mg/dL Creatinine (0.5-1.4) mg/dL Estim Creat Clear Calc Estimated GFR Random Glucose (60-115) mg/dL Lactic Acid (0.5-2.0) mmol/L Calcium (8.4-10.2) mg/dL Magnesium 2.0 (1.6-2.6) mg/dL Total Bilirubin (0.0-1.0) mg/dL AST (5-31) U/L ALT (0-31) U/L Alkaline Phosphatase (39-117) U/L Total Creatine Kinase (26-140) U/L Troponin I High Sens (<3.5-17.0) ng/L B-Natriuretic Peptide (<100) pg/mL Total Protein (6.5-8.0) g/dL Albumin (3.5-5.0) g/dL COVID-19 ([facility]O) (Negative) COVID-19 Clin Com 02/04/21 02/04/21 02/04/21 Range/Units 11:41 11:41 11:41 WBC (4.8-10.8) X10*3/uL RBC (4.20-5.50) X10*6/uL Hgb (12.0-16.0) g/dl Hct (37-47) % MCV (80-98) fL MCH (27.0-33.0) pg MCHC (31.0-35.0) g/dl RDW (11.0-16.0) % Plt Count (160-400) X10*3/uL MPV (9.4-12.3) fL Immature Gran % (Auto) (0.0-0.4) % Neut % (Auto) (45-73) % Lymph % (Auto) (20-40) % [place] % (Auto) (2-11) % Eos % (Auto) (0-4) % Baso % (Auto) (0-2) % Lymph # (Auto) (1.2-4.9) X10*3/uL [place] # (Auto) (0.1-1.2) X10*3/uL Eos # (Auto) (0.0-0.4) X10*3/uL Baso # (Auto) (0.0-0.2) X10*3/uL Abs Immat Gran (auto) (0.00-0.03) X10*3/uL Absolute Neuts (auto) (2.0-8.3) X10*3/uL Absolute Nucleated RBC (0.0-0.012) X10*3/uL Nucleated RBC % (auto) (0.0-0.2) /100WBC PT (9.9-13.0) SEC INR (0.9-1.1) PTT (Heparin Protocol) (53-77.9) SEC VBG pH (7.32-7.43) VBG pCO2 mmHg VBG pO2 mmHg VBG HCO3 (22-26) mmol/L VBG O2 Saturation % VBG Base Excess mmol/L Sodium 144 (135-145) mmol/L Potassium 4.5 (3.3-5.1) mmol/L Chloride 113 H (96-108) mmol/L Carbon Dioxide 23 (22-29) mmol/L Anion Gap 13 (12-20) BUN 26 H (9-16) mg/dL Creatinine 1.13 (0.5-1.4) mg/dL Estim Creat Clear Calc 40.5 Estimated GFR 47 Random Glucose 157 H D (60-115) mg/dL Lactic Acid (0.5-2.0) mmol/L Calcium 8.8 (8.4-10.2) mg/dL Magnesium (1.6-2.6) mg/dL Total Bilirubin 0.4 (0.0-1.0) mg/dL AST 35 H D (5-31) U/L ALT 17 (0-31) U/L Alkaline Phosphatase 49 (39-117) U/L Total Creatine Kinase 150 H (26-140) U/L Troponin I High Sens 123.4 H* (<3.5-17.0) ng/L B-Natriuretic Peptide 301 H (<100) pg/mL Total Protein 6.3 L (6.5-8.0) g/dL Albumin 3.4 L (3.5-5.0) g/dL COVID-19 ([facility]O) (Negative) COVID-19 Clin Com 02/04/21 02/04/21 02/04/21 Range/Units 11:48 13:05 14:44 WBC (4.8-10.8) X10*3/uL RBC (4.20-5.50) X10*6/uL Hgb (12.0-16.0) g/dl Hct (37-47) % MCV (80-98) fL MCH (27.0-33.0) pg MCHC (31.0-35.0) g/dl RDW (11.0-16.0) % Plt Count (160-400) X10*3/uL MPV (9.4-12.3) fL Immature Gran % (Auto) (0.0-0.4) % Neut % (Auto) (45-73) % Lymph % (Auto) (20-40) % [place] % (Auto) (2-11) % Eos % (Auto) (0-4) % Baso % (Auto) (0-2) % Lymph # (Auto) (1.2-4.9) X10*3/uL [place] # (Auto) (0.1-1.2) X10*3/uL Eos # (Auto) (0.0-0.4) X10*3/uL Baso # (Auto) (0.0-0.2) X10*3/uL Abs Immat Gran (auto) (0.00-0.03) X10*3/uL Absolute Neuts (auto) (2.0-8.3) X10*3/uL Absolute Nucleated RBC (0.0-0.012) X10*3/uL Nucleated RBC % (auto) (0.0-0.2) /100WBC PT (9.9-13.0) SEC INR (0.9-1.1) PTT (Heparin Protocol) (53-77.9) SEC VBG pH 7.30 L (7.32-7.43) VBG pCO2 41 mmHg VBG pO2 59 mmHg VBG HCO3 20 L (22-26) mmol/L VBG O2 Saturation 82.0 % VBG Base Excess -5.3 mmol/L Sodium (135-145) mmol/L Potassium (3.3-5.1) mmol/L Chloride (96-108) mmol/L Carbon Dioxide (22-29) mmol/L Anion Gap (12-20) BUN (9-16) mg/dL Creatinine (0.5-1.4) mg/dL Estim Creat Clear Calc Estimated GFR Random Glucose (60-115) mg/dL Lactic Acid (0.5-2.0) mmol/L Calcium (8.4-10.2) mg/dL Magnesium (1.6-2.6) mg/dL Total Bilirubin (0.0-1.0) mg/dL AST (5-31) U/L ALT (0-31) U/L Alkaline Phosphatase (39-117) U/L Total Creatine Kinase (26-140) U/L Troponin I High Sens 746.7 H* D (<3.5-17.0) ng/L B-Natriuretic Peptide (<100) pg/mL Total Protein (6.5-8.0) g/dL Albumin (3.5-5.0) g/dL COVID-19 ([facility]IDO) Negative (Negative) COVID-19 Clin Com See Note 02/04/21 02/04/21 Range/Units 16:51 17:07 WBC (4.8-10.8) X10*3/uL RBC (4.20-5.50) X10*6/uL Hgb (12.0-16.0) g/dl Hct (37-47) % MCV (80-98) fL MCH (27.0-33.0) pg MCHC (31.0-35.0) g/dl RDW (11.0-16.0) % Plt Count (160-400) X10*3/uL MPV (9.4-12.3) fL Immature Gran % (Auto) (0.0-0.4) % Neut % (Auto) (45-73) % Lymph % (Auto) (20-40) % [place] % (Auto) (2-11) % Eos % (Auto) (0-4) % Baso % (Auto) (0-2) % Lymph # (Auto) (1.2-4.9) X10*3/uL [place] # (Auto) (0.1-1.2) X10*3/uL Eos # (Auto) (0.0-0.4) X10*3/uL Baso # (Auto) (0.0-0.2) X10*3/uL Abs Immat Gran (auto) (0.00-0.03) X10*3/uL Absolute Neuts (auto) (2.0-8.3) X10*3/uL Absolute Nucleated RBC (0.0-0.012) X10*3/uL Nucleated RBC % (auto) (0.0-0.2) /100WBC PT (9.9-13.0) SEC INR (0.9-1.1) PTT (Heparin Protocol) 28.3 L (53-77.9) SEC VBG pH (7.32-7.43) VBG pCO2 mmHg VBG pO2 mmHg VBG HCO3 (22-26) mmol/L VBG O2 Saturation % VBG Base Excess mmol/L Sodium (135-145) mmol/L Potassium (3.3-5.1) mmol/L Chloride (96-108) mmol/L Carbon Dioxide (22-29) mmol/L Anion Gap (12-20) BUN (9-16) mg/dL Creatinine (0.5-1.4) mg/dL Estim Creat Clear Calc Estimated GFR Random Glucose (60-115) mg/dL Lactic Acid 1.4 (0.5-2.0) mmol/L Calcium (8.4-10.2) mg/dL Magnesium (1.6-2.6) mg/dL Total Bilirubin (0.0-1.0) mg/dL AST (5-31) U/L ALT (0-31) U/L Alkaline Phosphatase (39-117) U/L Total Creatine Kinase (26-140) U/L Troponin I High Sens (<3.5-17.0) ng/L B-Natriuretic Peptide (<100) pg/mL Total Protein (6.5-8.0) g/dL Albumin (3.5-5.0) g/dL COVID-19 ([facility]) (Negative) COVID-19 Clin Com Imaging Data CT scan cervical spine: Attestation: I personally reviewed and interpreted this imaging study as follows: Radiologist's impression: FINDINGS: There is slight head tilt to the left, curvature of the proximal cervical spine to the right and lower cervical and upper thoracic spine to the left. Bone alignment is otherwise normal. No fracture or dislocation is seen. There is degenerative spondylosis at C3-C4, C4-C5 and C5-C6. There is mild disc space narrowing at C5-C6. Prevertebral soft tissues are normal. There is a left thyroid nodule. This measures approximately 1 x 1.5 cm. This is increased in size from previous chest CT scans. Follow-up thyroid ultrasound recommended. The visualized proximal thoracic esophagus is slightly distended and air-filled. CT/CT cervical spine wo con IMPRESSION: Degenerative changes. No fracture or dislocation seen. Left thyroid nodule increased in size from prior exams. Follow-up thyroid ultrasound recommended.? CTA of chest for PE: Attestation: I personally reviewed and interpreted this imaging study as follows: Radiologist's impression: FINDINGS: QUALITY OF STUDY/CONTRAST BOLUS: Satisfactory. PULMONARY ARTERIES: There are multiple segmental and subsegmental left pulmonary emboli. There are smaller subsegmental right lower lobe pulmonary emboli.? THORACIC AORTA: No aneurysm or dissection. LUNG: There is evidence of emphysema. There is volume loss to the right upper lobe. There is atelectasis and bronchiectasis in the right upper lobe. This is similar to 2012 exam. There are increased peripheral interstitial markings in the right upper lobe and right middle lobe and pleural thickening likely related to chest wall radiation. There are new scattered nodular opacities seen in the left upper and left lower lobes and the posterior basal segment of the right lower lobe. The largest measures approximately 1 cm. PLEURA: No pleural effusion or pneumothorax. MEDIASTINUM: There is a probable small esophageal hernia. The esophagus is dilated and filled. The heart does not appear enlarged. There is no pericardial effusion. There are no enlarged hilar or mediastinal lymph nodes.. CHEST WALL/AXILLA: No axillary or internal mammary lymphadenopathy. OSSEOUS STRUCTURES: There are degenerative changes of the spine.? UPPER ABDOMEN: Unremarkable.? No reflux of contrast into the hepatic veins to suggest elevated right heart pressures. CT/CT angio chest PE protocol IMPRESSION: Bilateral pulmonary emboli, left greater than right. Probable small esophageal hernia. Dilated fluid-filled thoracic esophagus. Possible aspiration should be considered. Stable right upper lobe volume loss, atelectasis and bronchiectasis. Probable post chest wall radiation changes in the right middle and right upper lobes. New scattered small nodular opacities, left greater than right. Chest CT appearance is nonspecific. This may represent an infectious or inflammatory process. Neoplasm neoplasm cannot be excluded and chest CT follow-up is recommended. CT scan facial bones: Attestation: I personally reviewed and interpreted this imaging study as follows: Radiologist's impression: FINDINGS: There is no acute maxillofacial fracture. The pterygoid plates are intact. The zygomatic arches are intact. The lamina papyracea are intact. The orbital rims are intact. The paranasal sinuses are well-aerated. There are mild inflammatory changes with membranous soft tissue thickening in the right frontal and maxillary and sphenoid sinuses. The nasal septum is midline. The ostiomeatal complexes are clear. The lamina papyracea are intact. The ethmoid roofs are symmetric. The carotid canals are normally covered by bone. No maxillary periapical disease is seen. The mastoid air cells and visualized middle ear cavities are well-aerated. The orbits are normal. The TMJs are unremarkable. The imaged portions of the brain demonstrate no acute abnormality. CT/CT facial bones wo con IMPRESSION: Mild inflammatory changes in the sinuses. No fracture seen. ECG Data Attestation: I personally reviewed and interpreted this ECG as follows: ECG interpretation date: 02/04/21 ECG interpretation time: 11:23 Interpretation: EKG is sinus tachycardia with premature atrial complexes with a ventricular rate of 101 she is noted to have a new right bundle branch block that is new when compared to the EKG on 07/23/2018. Otherwise no acute ischemic changes are noted. Critical Care Time Critical Care Time Critical Care Time: Yes Total Critical Care Time: 60 Attestation: I personally attest to this time spent taking care of the patient Discharge Plan Discharge Clinical Impression: Fall, Laceration of lip, Dizziness, Bilateral pulmonary embolism Patient Disposition: Admitted As Inpatient
[2021-02-04 15:31] LABS: Troponin-I High Sensitivity 746.7 ng/L (<3.5-17.0)
--- NOTE | 2021-02-04 15:32 | ECG_ITS ---
Test Reason : REPEAT Blood Pressure : / mmHG Vent. Rate : 094 BPM Atrial Rate : 094 BPM P-R Int : 132 ms QRS Dur : 112 ms QT Int : 400 ms P-R-T Axes : 072 066 021 degrees QTc Int : 500 ms Normal sinus rhythm Non-specific intra-ventricular conduction delay Abnormal ECG When compared with ECG of 04-FEB-2021 11:23, Premature atrial complexes are no longer Present Referred By: Lexie Mcgrath Electronically Signed By:CEDRIC HOLBROOK
[2021-02-04] MEDS: iohexoL 350 MG/ML 100 ML INFUS..BTL IV (15:55)
[2021-02-04] MEDS: Heparin Sodium,Porcine 5,000 UNIT/ML VIAL 5200 UNIT IVPUSH (16:58)
[2021-02-04] MEDS: Heparin Sodium,Porcine/1/2NS 25,000 UNIT/250 ML IV.SOLN 9.02 UNIT IVCONT (17:01)
--- NOTE | 2021-02-04 17:29 | PM.IMHP ---
History of Present Illness Date of Service: 02/04/21 Chief Complaint: Dizziness and fall 70-year-old female with a past medical history of vertigo, asthma-COPD overlap syndrome, pulmonary nodules, hypertension and history of breast cancer (invasive ductal carcinoma, MS BR grade 2, no lymphovascular invasion) in 2019 s/p lumpectomy and deffered chemo--followed by Dr. Zayas came to ED follow a dizzy epsisode that sarted as vertigo while she was sitting on the toilet, her daughter was warning her not to stand but was too late. She stood up fell forward, hiting her lips against refrigerator--No LOC, lost a tooth, and sustaining laceration to both lips. The dizziness was not any different from her usual vertigo, although alos lately has been having shortness of breath according to daughter at [facility]. No chest pain. She was hemodynamically stable. Work with CT of chest has revealed bilateral pulmonary embolism and possible pneumonia. She is started on IV heparin. Review of Systems Review of Systems: Gen: no fever Resp: + sob, no cough CV: no chest, no MOSLEY, no leg edema GI: No n/v, no abd pain Neuro: No confusion, dizzy Yes all other systems are reviewed and are negative [facility] Medical History Anemia of chronic disease Asthma Depression History of breast cancer HLD (hyperlipidemia) Hypertension Smoker Family History Mother History of breast cancer Sister History of breast cancer History of colon polyps History of colitis History of colon cancer Maternal Aunt History of breast cancer Surgical History History of bronchoscopy (~04/28/11) History of colonoscopy (~09/10/08) History of esophagogastroduodenoscopy (EGD) (~08/09/11) History of excision of mass (~06/01/19) History of lumpectomy of right breast (~05/10/19) History of right breast biopsy (~04/26/19) History of toe surgery Social History Alcohol intake: former Patient Tobacco Use Status: Former Tobacco user Quit Date: 05/2020 Advance Directives: No Advance Directives Information Provided: No Meds Allergies Allergy/AdvReac Type Severity Reaction Status Date / Time penicillin G [Penicillin G] Allergy Mild RASH Verified 01/09/21 10:44 potassium [POTASSIUM] Allergy Unknown PEDAL EDEMA Verified 01/09/21 10:44 Active Medications: Current Medications Generic Name Dose Route Start Last Admin Trade Name Freq PRN Reason Stop Dose Admin Heparin Sodium (Porcine) 2,600 unit 02/04/21 16:29 Heparin Sodium,Porcine 5,000 Unit/Ml Vial 40 unit/kg (2600 unit) IVPUSH PROTOCOL BOLUS PRN 40 unit/kg - Heparin Protocol Protocol Heparin Sodium (Porcine) 5,200 unit 02/04/21 16:29 Heparin Sodium,Porcine 5,000 Unit/Ml Vial 80 unit/kg (5200 unit) IVPUSH PROTOCOL BOLUS PRN 80 unit/kg - Heparin Protocol Protocol Heparin Sodium/Sodium Chloride 25,000 unit in 250 mls @ 0 mls/hr 02/04/21 16:30 02/04/21 17:01 IVCONT 14 units/kg/hr .Q0M BRITNEY 9.02 mls/hr Administration Protocol Per Protocol Sodium Chloride 1,000 mls @ 999 mls/hr 02/04/21 16:45 Ns IVCONT 02/04/21 17:45 .Q1H1M [facility] Home Medications Medication Instructions Recorded Confirmed Last Taken Type albuterol sulfate 2.5 mg INHALATION Q4H 04/24/20 01/02/21 Unknown History amlodipine 2.5 mg tablet 2.5 mg PO DAILY 04/24/20 01/02/21 Unknown History atorvastatin 40 mg tablet 40 mg PO DAILY 04/24/20 01/02/21 Unknown History cholecalciferol (vitamin D3) 25 25 mcg PO DAILY 04/24/20 01/02/21 Unknown History mcg (1,000 unit) capsule clonazepam 0.5 mg tablet 0.5 mg PO BEDTIME 04/24/20 01/02/21 Unknown History fluoxetine 20 mg capsule 20 mg PO DAILY 04/24/20 01/02/21 Unknown History ibuprofen 800 mg tablet 800 mg PO DAILY 04/24/20 01/02/21 Unknown History irbesartan 300 mg tablet 300 mg PO QAM 04/24/20 01/02/21 Unknown History melatonin 5 mg tablet 5 mg PO BEDTIME 04/24/20 01/02/21 Unknown History montelukast 10 mg tablet 10 mg PO DAILY 04/24/20 01/02/21 Unknown History omeprazole 20 mg capsule,delayed 20 mg PO QAM 04/24/20 01/02/21 Unknown History release tamoxifen 20 mg tablet 20 mg PO BEDTIME 04/24/20 01/02/21 Unknown History Physical Exam Vital Signs and Narrative: Vital Signs: Last Vital Signs Temp 95.9 F L 02/04/21 15:05 Pulse 93 02/04/21 16:33 Resp 16 02/04/21 16:33 BP 125/72 02/04/21 16:33 Pulse Ox 98 02/04/21 16:33 Oxygen Flow Rate 4 02/04/21 10:50 Body Mass Index 23.6 Const: General: cooperative and comfortable Orientation/consciousness: patient oriented x3 HENMT: Head: Yes normal to inspection and Yes No palpable skull fracture present Mouth/tongue images: 1. laceration 2. laceration Neck: Yes normal visual inspection Thyroid: Thyroid normal Chest: Chest palpation & inspection: normal inspection of the chest Resp: Effort & Inspection: normal respiratory effort and able to speak in complete sentences Auscultation: clear to auscultation bilaterally Cardio: Jugular venous distension: no JVD Rate: regular rate Rhythm: regular rhythm Heart sounds: S1 normal heart sound present and S2 normal heart sound present GI: Auscultation: normal bowel sounds Skin: Other: laceration to the lipis, abrasion to arms Neuro: General: patient oriented x3 Cognition (Neuro): normal cognition Motor exam (neuro): 5/5 motor strength present throughout Extrem: General: Yes full ROM Psych: Appearance: grossly normal and well kempt Results Labs CBC and Chem 7: 02/04/21 11:41 02/04/21 11:41 Labs: covid negative, troponnin 747, BNP 301 ECG Attestation: I personally reviewed and interpreted this ECG as follows: (Vent. Rate : 094 BPM Atrial Rate : 094 BPM P-R Int : 132 ms QRS Dur : 112 ms QT Int : 400 ms P-R-T Axes : 072 066 021 degrees QTc Int : 500 ms Normal sinus rhythm Cannot rule out Inferior infarct (cited on or before 04-FEB-2021) Abnormal ECG When compared with ECG of 2) Imaging Radiologist's Impressions: Impressions Cervical Spine CT 02/04/21 11:11 IMPRESSION: Degenerative changes. No fracture or dislocation seen. Left thyroid nodule increased in size from prior exams. Follow-up thyroid ultrasound recommended. Face CT 02/04/21 11:11 IMPRESSION: Mild inflammatory changes in the sinuses. No fracture seen. Head CT 02/04/21 11:13 IMPRESSION: No acute findings. Chest CTA 02/04/21 11:14 IMPRESSION: Bilateral pulmonary emboli, left greater than right. Probable small esophageal hernia. Dilated fluid-filled thoracic esophagus. Possible aspiration should be considered. Stable right upper lobe volume loss, atelectasis and bronchiectasis. Probable post chest wall radiation changes in the right middle and right upper lobes. New scattered small nodular opacities, left greater than right. Chest CT appearance is nonspecific. This may represent an infectious or inflammatory process. Neoplasm neoplasm cannot be excluded and chest CT follow-up is recommended. Findings were discussed with Lexie Reeves by telephone on 02/04/2021 at 4:30 PM. VTE: Assessment and Plan (1) Bilateral pulmonary embolism: Status: Acute (2) Vertigo: Status: Acute (3) Pulmonary nodules: Status: Acute (4) Asthma-COPD overlap syndrome: Status: Acute (5) Hypertension: Status: Acute (6) Laceration of lip: Status: Acute (7) Fall: Status: Acute 70-year-old female with a past medical history of vertigo, asthma-COPD overlap syndrome, pulmonary nodules, hypertension and history of breast cancer (invasive ductal carcinoma, MS BR grade 2, no lymphovascular invasion) in 2019 s/p lumpectomy and deffered chemo--followed by Dr. Zayas came to ED follow here with dizziness, fall and found to have bilateral PE and pulmonary nodule, and probably penumonia. 1/Pulmonary embolism--likely related to malignancy -Anticoagulation with Heparin -Echo tomorrow -Hematology/Oncology consult 2/PNA--Ceftriaxone, Azithro 3/ Pulmonary nodules--likely mets, may need further work, oncology to direct this 4/ Fall/dizziness, no syncope--Still monitor on tele, when stable PT eval 5/ Anemia--Chronic likely from chronic disease, follow closely while on heparin 6/COPD/Asthma-Bronchodilators, I don't think there is acute exacerbation 7/HTN--BP within normal, hold meds f(Norvasc and Ibersartant) 8/Elevated troponin, likely type 2 AL from PE, Echo, repeat tropos, if worsening, cardiology consult, echo as abofe. 9/ H/o of CA, hold Tamoxifen as pro thrombotic, oncology to comment on it 10/GERD--Omeprazole 11/HLD--Lipitor 12/Depression --Fluoxetin 13/DVT prophylaxis--Heparin, Full Code, discussed with daughter and patient Quality Stroke Does the patient have a stroke diagnosis?: No VTE Prior VTE?: No VTE Risk Level:: Medical - moderate - high VTE Device Contraindication: N/A - Device Ordered VTE Drug Contraindication: N/A - Med Ordered
[2021-02-04] MEDS: cefTRIAXone sodium 2 GM in 0.9 % Sodium Chloride 50 ML IV (17:40)
[2021-02-04 17:42] LABS: PTT Heparin Drip 28.3 SEC (53-77.9)
[2021-02-04 17:47] LABS: Lactic Acid 1.4 mmol/L (0.5-2.0)
--- NOTE | 2021-02-04 19:13 | PHA.MEDREC ---
Pharmacy Consult ? Medication Reconciliation Pharmacy has completed the medication reconciliation. Patient's daughter is unsure of what her inhaler are. She said pulmonology just recently change her medications. Trelegy was recently filled on 01/09/2021 along with the Duonebs. The Daughter was also unsure if she is taking amlodipine, this was filled 12/17/2020 along with the rest of the patient medications so patient is most likely still taking it. She has not taken any medications this morning. Cassie Bains, PharmD
--- NOTE | 2021-02-04 19:26 | PC.NURSE ---
Lip laceration bleeding has increased since start of heparin. Dressing replaced. patient in NAD, breathing even and unlabored. Airway intact. Inpatient MD aware.
--- NOTE | 2021-02-04 20:35 | PC.NURSE ---
Per provider, patient must hold manual pressure of laceration when she can to stop the bleeding as pressure dressings have not stopped the lip laceration bleeding.
[2021-02-04] MEDS: Acetaminophen 325 MG TABLET 650 MG PO (23:13)
[2021-02-04 23:38] LABS: PTT Heparin Drip 156.6 SEC (53-77.9)
[2021-02-05] VITALS (8 sets, daily range): BP systolic 103–151; BP diastolic 7–85; PULSE 68–101; RESP 16–24; TEMP 36.3–36.8; O2SAT 90–98
[2021-02-05] MEDS: 0.9 % Sodium Chloride Flush 3 ML SYRINGE IVFLUSH ×2 (00:16→19:25)
[2021-02-05 01:09] LABS: PTT Heparin Drip 91.6 SEC (53-77.9)
[2021-02-05 07:02] LABS: PTT Heparin Drip 50.5 SEC (53-77.9)
[2021-02-05 07:18] LABS: Anion Gap 13 (12-20); Blood Urea Nitrogen 24 mg/dL (9-16); Carbon Dioxide 20 mmol/L (22-29); Chloride 117 mmol/L (96-108); Creatinine Clr Calc Pharmacy 48.1; Estimated Glomerular Filt Rate 58; Glucose Random 100 mg/dL (60-115); Hematocrit 29.4 % (37-47); Hemoglobin 8.7 g/dl (12.0-16.0); Mean Corpuscular HGB Conc 29.6 g/dl (31.0-35.0); Mean Corpuscular Hemoglobin 25.6 pg (27.0-33.0); Mean Corpuscular Volume 86.5 fL (80-98); Mean Platelet Volume 10.3 fL (9.4-12.3); Platelet Count 173 X10*3/uL (160-400); Potassium 5.1 mmol/L (3.3-5.1); Red Cell Distribution Width 15.4 % (11.0-16.0); Sodium 145 mmol/L (135-145)
[2021-02-05] MEDS: Heparin Sodium,Porcine 5,000 UNIT/ML VIAL 2600 UNIT IVPUSH (07:19)
--- NOTE | 2021-02-05 07:26 | PC.NURSE ---
ATTEMPTED TO CALL REPORT X1
[2021-02-05 09:15] LABS: Iron 23 mcg/dL (30-160); Percent Iron Saturation 7 % (15-50); Total Iron Binding Capacity 312 mcg/dL (228-428); Unsaturated Iron Binding 289 ug/dL
--- NOTE | 2021-02-05 09:15 | PM.HEMONCCN ---
Subjective - Subjective Chief complaint: SOB, fall Patient: known to practice within the last 3 years Consult date: 02/05/21 Primary Care Provider: Vivienne Marques MD Medical Summary: Diagnosis: Right breast invasive ductal carcinoma diagnosed in April 2019 Underwent lumpectomy followed by adjuvant radiation therapy. Started tamoxifen in September 2019. HPI - Consult Narrative Reason for consult: Pulmonary embolism, patient with history of breast cancer Narrative: Kary Amador is a 70 year old female who is admitted with pulmonary embolism which was diagnosed after a fall yesterday. Patient presented to the emergency room after an episode of loss of consciousness/fall. Her family members were present at the bedside and other main historians. According to her daughter patient has been complaining of left shoulder discomfort and shortness of breath for a week to 10 days. She travel to [place] and back with this pain and shortness of breath which they attributed to arthritis and her asthma. They returned on Tuesday and patient got progressively weak and dyspneic. Yesterday, she came out of bathroom complaining of dizziness and vertigo and fell to the floor bruising her face and chin as well as upper extremities. She does not complain of lower extremity pain or swelling. Apart from her recent travel to [place] she has not been immobilized. She has not had any recent surgery. Review of Systems - Constitutional Reports as per HPI, Reports no additional constitutional complaints - Eyes Denies blurry vision - Cardiovascular Denies chest pain, Reports excessive sweating, Reports fainting, Reports fast heart rate - Respiratory Denies hemoptysis, Reports dyspnea, Denies wheezing - Gastrointestinal Denies abdominal pain, Denies black, tarry stools - Musculoskeletal Denies numbness, Denies stiffness, Denies tingling - Integumentary/Breasts Skin/Breast: Reports no additional skin complaints - Neurologic Reports vertigo, Reports dizziness, Reports syncope - Psychiatric Reports no additional psychiatric complaints - Hematologic/Lymphatic Reports no additional hematologic/lymphatic complaints, Denies easy bleeding PMFSH Medical History: Medical History (Last Updated 02/04/21 @ 18:23 by Duke Webber MD) Anemia of chronic disease Asthma Depression History of breast cancer HLD (hyperlipidemia) Hypertension Smoker Family History: Family History (Last Reviewed 02/04/21 @ 18:22 by Duke Webber MD) Mother History of breast cancer Sister History of breast cancer History of colon polyps History of colitis History of colon cancer Maternal Aunt History of breast cancer Surgical History: Surgical History (Last Reviewed 02/04/21 @ 18:22 by Duke Webber MD) History of bronchoscopy Onset Date: ~04/28/11 History of colonoscopy Onset Date: ~09/10/08 History of esophagogastroduodenoscopy (EGD) Onset Date: ~08/09/11 History of excision of mass Onset Date: ~06/01/19 History of lumpectomy of right breast Onset Date: ~05/10/19 History of right breast biopsy Onset Date: ~04/26/19 History of toe surgery Social History: Social History (Last Reviewed 02/04/21 @ 18:22 by Duke Webber MD) Alcohol History: Alcohol intake: former Alcohol History Details: Alcohol intake frequency: does not drink Tobacco History: Patient Tobacco Use Status: Former Tobacco user Smoke Quit Date: 05/2020 Advance Directives: Advance Directives: No Advance Directives Information Provided: No Home Medications and Allergies Current Medications: Current Medications Generic Name Dose Route Start Last Admin Trade Name Freq PRN Reason Stop Dose Admin Acetaminophen 650 mg 02/04/21 17:25 02/04/21 23:13 Acetaminophen 325 Mg Tablet PO 650 mg Q6H PRN Administration Pain, Mild (Pain Scale 1-3) Docusate Sodium 100 mg 02/04/21 17:25 Docusate Sodium 100 Mg Capsule PO DAILY PRN Constipation Heparin Sodium (Porcine) 2,600 unit 02/04/21 16:29 02/05/21 07:19 Heparin Sodium,Porcine 5,000 Unit/Ml Vial 40 unit/kg (2600 unit) 2,600 unit IVPUSH Administration PROTOCOL BOLUS PRN 40 unit/kg - Heparin Protocol Protocol Heparin Sodium (Porcine) 5,200 unit 02/04/21 16:29 Heparin Sodium,Porcine 5,000 Unit/Ml Vial 80 unit/kg (5200 unit) IVPUSH PROTOCOL BOLUS PRN 80 unit/kg - Heparin Protocol Protocol Heparin Sodium/Sodium Chloride 25,000 unit in 250 mls @ 0 mls/hr 02/04/21 16:30 02/05/21 07:15 IVCONT 12 units/kg/hr .Q0M BRITNEY 7.73 mls/hr Titration Protocol Per Protocol Ceftriaxone Sodium 1 gm/ 50 mls @ 100 mls/hr 02/05/21 18:00 Sodium Chloride IV Q24H [facility] Melatonin 3 mg 02/04/21 17:25 Melatonin 3 Mg Tablet PO BEDTIME PRN Insomnia Ondansetron HCl 4 mg 02/04/21 17:25 Ondansetron Hcl 4 Mg/2 Ml Vial IVPUSH Q8H PRN Nausea and Vomiting Pharmacy Consult 1 each 02/04/21 18:35 Consult Rx Perform Med Rec MISCELLANE ONCE PRN Consult order Sodium Chloride 3 ml 02/05/21 00:00 02/05/21 08:56 0.9 % Sodium Chloride Flush 3 Ml Syringe IVFLUSH Not Given QSHIFT [facility] Home Medications Medication Instructions Recorded Confirmed Type albuterol sulfate 2.5 mg INHALATION Q4H 04/24/20 02/04/21 History amlodipine 2.5 mg tablet 2.5 mg PO DAILY 04/24/20 02/04/21 History atorvastatin 40 mg tablet 40 mg PO DAILY 04/24/20 02/04/21 History cholecalciferol (vitamin D3) 25 25 mcg PO DAILY 04/24/20 02/04/21 History mcg (1,000 unit) capsule clonazepam 0.5 mg tablet 0.5 mg PO BEDTIME 04/24/20 02/04/21 History fluoxetine 20 mg capsule 20 mg PO DAILY 04/24/20 02/04/21 History ibuprofen 800 mg tablet 800 mg PO DAILY 04/24/20 02/04/21 History irbesartan 300 mg tablet 300 mg PO QAM 04/24/20 02/04/21 History melatonin 5 mg tablet 5 mg PO BEDTIME PRN 04/24/20 02/04/21 History montelukast 10 mg tablet 10 mg PO DAILY 04/24/20 02/04/21 History tamoxifen 20 mg tablet 20 mg PO BEDTIME 04/24/20 02/04/21 History calcium 500 mg tablet 1,000 mg PO DAILY 02/04/21 02/04/21 History multivitamin 1 tab PO DAILY 02/04/21 02/04/21 History omeprazole 40 mg capsule,delayed 40 mg PO QAM 02/04/21 02/04/21 History release Allergies Allergy/AdvReac Type Severity Reaction Status Date / Time penicillin G [Penicillin G] Allergy Mild RASH Verified 01/09/21 10:44 potassium [POTASSIUM] Allergy Unknown PEDAL EDEMA Verified 01/09/21 10:44 Physical Exam Vital signs: Vital Signs Temp 98 F 02/05/21 07:59 Pulse 97 02/05/21 07:59 Resp 20 02/05/21 07:59 BP 139/7 L 02/05/21 07:59 Pulse Ox 90 L 02/05/21 07:59 Intake & Output 02/04/21 02/05/21 02/05/21 18:59 06:59 18:59 Intake Total 1000 / 2109.983 1109.983 / 2109.983 31.663 / 31.663 Balance 1000 / 2109.983 1109.983 / 2109.983 31.663 / 31.663 Intake: Intake, IV Amount 1000 / 2109.983 1109.983 / 2109.983 31.663 / 31.663 cefTRIAXone sodium 2 gm In 0.9 50 / 50 % Sodium Chloride 50 ml @ 100 mls/hr IV ONCE ONE Rx#: [id number] 0.9 % Sodium Chloride 1,000 ml 1000 / 2000 1000 / 2000 @ 999 mls/hr IVCONT .Q1H1M [facility] Rx#:[id number] Heparin Sodium,Porcine/1/2NS 25 59.983 / 59.983 31.663 / 31.663 ,000 unit In 250 ml @ Per Protocol IVCONT .Q0M [facility] Rx#: [id number] Other: Weight 64.41 kg Weight 64.41 kg - Constitutional Present: mild distress - Routine HEENT Exam Head: Present: abrasion, laceration, hematoma, facial swelling - Routine Neck Exam Present: supple, trachea midline - Routine Respiratory Exam Present: decreased breath sounds. Absent: stridor, wheezes - Routine Cardiovascular Exam Cardiovascular: Present: S1, S2, tachycardia - Routine Abdominal Exam Present: soft - Routine Extremities Exam Present: normal inspection. Absent: tenderness - Routine Neurological Exam Present: alert, oriented X3 Hem/Onc Consult Result - Labs CBC & Chem 7: 02/05/21 06:37 02/05/21 06:37 Labs: Short CBC 02/04/21 02/05/21 Range/Units 11:41 06:37 WBC 14.2 H 10.0 (4.8-10.8) X10*3/uL Hgb 9.9 L 8.7 L (12.0-16.0) g/dl Hct 32.6 L 29.4 L (37-47) % Plt Count 186 D 173 (160-400) X10*3/uL BMP 02/04/21 02/05/21 11:41 06:37 Sodium 144 145 Potassium 4.5 5.1 Chloride 113 H 117 H Carbon Dioxide 23 20 L BUN 26 H 24 H Creatinine 1.13 0.95 Calcium 8.8 8.0 L D Cardiac Enzymes 02/04/21 Range/Units 11:41 Total Creatine Kinase 150 H (26-140) U/L Liver Function 02/04/21 Range/Units 11:41 Total Bilirubin 0.4 (0.0-1.0) mg/dL AST 35 H D (5-31) U/L ALT 17 (0-31) U/L Alkaline Phosphatase 49 (39-117) U/L Albumin 3.4 L (3.5-5.0) g/dL Assessment and Plan (1) Bilateral pulmonary embolism Status: Acute 1. This is 70-year-old woman with history of right breast cancer diagnosed in 2019 on adjuvant hormonal therapy with tamoxifen presenting with saddle pulmonary embolism. She had recent travel to [place] and back, she is an ex-smoker and has underlying asthma. CT angiogram performed 02/04/2021 shows bilateral pulmonary emboli, left greater than right. Chronic right-sided radiation changes in right middle and right upper lobes. New scattered nodular opacities in the left lung which is nonspecific, infectious, inflammatory or neoplastic. Repeat CT has been recommended. Patient is receiving IV unfractionated heparin. Lower extremity Doppler is negative for DVT. Echocardiogram is pending. Probable cause of thromboembolism is tamoxifen along with recent travel. Discontinue tamoxifen permanently. She can be switched to Lovenox 1 mg/kg b.i.d. been hemodynamically stable and continue this for a month before switching to oral anticoagulation with DOAC. 2. Iron deficiency anemia. Start oral iron supplementation. GI evaluation as outpatient. I thank you for this consultation.
[2021-02-05 09:55] LABS: Folate 17.6 ng/mL (> or = 4.0); Vitamin B12 565 pg/mL (200-900)
--- NOTE | 2021-02-05 10:21 | P.PNIM_ITS ---
Subjective Subjective Date of Service: 02/07/21 Interval History: Seen in f/u for PE, PNA, short of breath, O2 90n Review of Systems Gen: no fever Resp: SOB CV: no chest, no MOSLEY, no leg edema GI: No n/v, no abd pain Neuro: No confusion Physical Exam Vital Signs: Vital Signs: Last Vital Signs Temp 98 F 02/05/21 07:59 Pulse 97 02/05/21 07:59 Resp 20 02/05/21 07:59 BP 139/7 L 02/05/21 07:59 Pulse Ox 90 L 02/05/21 07:59 Oxygen Flow Rate 4 02/04/21 10:50 Body Mass Index 23.6 General: AO X 3, no acute distress HEENT--laceration of lips with assoiated bruse up to chin Resp: CTA bilateral CVS: S1,S2,RRR GI: +BS, NT, no distention Skin: No rash Neuro: motor grossly intact Psych: appropriate affect Const: General: cooperative and comfortable HENMT: Head: Yes normal to inspection and Yes No palpable skull fracture present Chest: Chest palpation & inspection: normal inspection of the chest Resp: Effort & Inspection: normal respiratory effort and able to speak in complete sentences Auscultation: clear to auscultation bilaterally Cardio: Jugular venous distension: no JVD Rate: regular rate Rhythm: regular rhythm Heart sounds: S1 normal heart sound present and S2 normal heart sound present GI: Auscultation: normal bowel sounds Skin: Other: laceration to the lipis, abrasion to arms Neuro: Cognition (Neuro): normal cognition Motor exam (neuro): 5/5 motor strength present throughout Extrem: General: Yes full ROM Psych: Appearance: grossly normal and well kempt Objective Data Current Medications Generic Name Dose Route Start Last Admin Trade Name Freq PRN Reason Stop Dose Admin Acetaminophen 650 mg 02/04/21 17:25 02/04/21 23:13 Acetaminophen 325 Mg Tablet PO 650 mg Q6H PRN Administration Pain, Mild (Pain Scale 1-3) Docusate Sodium 100 mg 02/04/21 17:25 Docusate Sodium 100 Mg Capsule PO DAILY PRN Constipation Ferrous Sulfate 324 mg 02/05/21 17:00 Ferrous Sulfate 324 Mg Tablet. PO BIDWM BRITNEY Heparin Sodium (Porcine) 2,600 unit 02/04/21 16:29 02/05/21 07:19 Heparin Sodium,Porcine 5,000 Unit/Ml Vial 40 unit/kg (2600 unit) 2,600 unit IVPUSH Administration PROTOCOL BOLUS PRN 40 unit/kg - Heparin Protocol Protocol Heparin Sodium (Porcine) 5,200 unit 02/04/21 16:29 Heparin Sodium,Porcine 5,000 Unit/Ml Vial 80 unit/kg (5200 unit) IVPUSH PROTOCOL BOLUS PRN 80 unit/kg - Heparin Protocol Protocol Heparin Sodium/Sodium Chloride 25,000 unit in 250 mls @ 0 mls/hr 02/04/21 16:30 02/05/21 07:15 IVCONT 12 units/kg/hr .Q0M BRITNEY 7.73 mls/hr Titration Protocol Per Protocol Ceftriaxone Sodium 1 gm/ 50 mls @ 100 mls/hr 02/05/21 18:00 Sodium Chloride IV Q24H [facility] Melatonin 3 mg 02/04/21 17:25 Melatonin 3 Mg Tablet PO BEDTIME PRN Insomnia Ondansetron HCl 4 mg 02/04/21 17:25 Ondansetron Hcl 4 Mg/2 Ml Vial IVPUSH Q8H PRN Nausea and Vomiting Pharmacy Consult 1 each 02/04/21 18:35 Consult Rx Perform Med Rec MISCELLANE ONCE PRN Consult order Sodium Chloride 3 ml 02/05/21 00:00 02/05/21 08:56 0.9 % Sodium Chloride Flush 3 Ml Syringe IVFLUSH Not Given QSHIFT [facility] Labs CBC & Chem 7: 02/07/21 05:52 02/07/21 05:52 Assessment and Plan (1) Bilateral pulmonary embolism: Status: Acute (2) Dizziness: Status: Acute (3) Laceration of lip: Status: Acute (4) Anemia of chronic disease: Status: Acute (5) Depression: Status: Acute Assessment and Plan: 70-year-old female with a past medical history of vertigo, asthma-COPD overlap syndrome, pulmonary nodules, hypertension and history of breast cancer (invasive ductal carcinoma, MS BR grade 2, no lymphovascular invasion)? in 2019 s/p lumpectomy and deffered chemo--followed by Dr. Zayas came to ED follow here wi th dizziness, fall and found to have bilateral PE and pulmonary nodule, and probably penumonia. 1/Pulmonary embolism--likely related to malignancy -continue Anticoagulation with Heparin, -Echo pending -Hematology/Oncology consult eval-continue iv haprain-?switched to Lovenox 1 mg/kg b.i.d. been hemodynamically stable and continue this for a month before switching to oral anticoagulation with NOAC. 2/PNA--Ceftriaxone, Azithro D3,? 3/ Pulmonary nodules--likely mets, may need further work later 4/ Fall/dizziness, no syncope--tele monitor, no arythmia 5/ Anemia--Chronic likely from chronic disease, follow cbc closely while on heparin. hematolgy recomended outpatient Gi workup . 6/COPD/Asthma-Bronchodilators, bronchodilators, add steroid for mild exacerbation 7/HTN--BP within normal, hold meds f(Norvasc and Ibersartant) 8/Elevated troponin, likely type 2 ND from PEchocardiogram shows normal LVEF, 60-65%, no wall motion abnormalities. Cardiology advises no further work up 9/ H/o of CA, hold Tamoxifen per oncology 10/GERD--Omeprazole 11/HLD--Lipitor 12/Depression --Fluoxetin Quality Stroke Does the patient have a stroke diagnosis?: No VTE Prior VTE?: No VTE Risk Level:: Medical - moderate - high VTE Device Contraindication: N/A - Device Ordered VTE Drug Contraindication: N/A - Med Ordered
[2021-02-05] MEDS: Acetaminophen 325 MG TABLET 650 MG PO ×2 (10:53→18:31)
[2021-02-05] MEDS: Azithromycin 500 MG in 0.9 % Sodium Chloride 250 ML 125 MG IV (10:54)
[2021-02-05] MEDS: Albuterol/Iprat 2.5/0.5MG 3 ML AMPUL.NEB INHALE ×2 (11:40→20:18)
--- NOTE | 2021-02-05 15:07 | MHC.CM.PN ---
CM met with Patient and her Daughter/Noreen, at bedside and addressed IMM, providing them with the original and placing a copy on the chart. Patient lives in an apartment with her Daughter/Noreen ( Daughter/Marlys is the HCP) and she has a [employer]PER[employer] and a [facility] RN that visits 2X/year. Patient has declined a VNA referral. Patient does not presently use O2 at home. The goal for dc is home/resume [employer] and CM has initiated and will follow for dc planning. PCP is Dr. Vivienne Marques.
--- NOTE | 2021-02-05 17:02 | PC.NURSE ---
Skin/wound assessment completed today. Patient has a sutured laceration to lip and large purple/black bruise on chin with a small skin tear. Xeroform applied to skin tear with small piece of non woven gauze and tape. There are skin tears to left and right elbows and right forearm. Xeroform applied to all skin tears. Elbows wrapped with non woven gauze and roll gauze. Forearm skin tear covered with large bandaid. Multiple bruises on arms and legs noted from fall. All present on admission.
[2021-02-05 17:21] LABS: Partial Thromboplastin Time 92.9 SEC (24.1-38.0)
--- NOTE | 2021-02-05 17:21 | CA_ITS ---
Transthoracic Echocardiogram Patient (Last, First, Middle): Kary Aggarwal, Gender: Female Date of : 1950 Age: 70 Procedure Date: 02/05/2021 Procedure Type: Transthoracic Echocardiogram [place] [facility] [place] Height: 165.1 cm Weight: 64.41 kg BSA: 1.71 m2 Heart Rate: bpm BP: 128 / 64 mmHg Plc Controls Engineer: ABDI Referring MD: Duke Webber MD Symptoms: pulmonary embolism Study Quality: Fair ECG Rhythm: Sinus Conclusions: - The left ventricular systolic function is normal. The visually estimated ejection fraction is between 60-65%. - No obvious valvular pathology seen on this study. - There is mild tricuspid valve regurgitation. - Mild to moderate pulmonary hypertension is present. Findings Left Ventricle Normal left ventricular cavity size. There is normal left ventricular wall thickness. The left ventricular systolic function is normal. The visually estimated ejection fraction is between 60-65%. There is no evidence of regional wall motion abnormalities. E/E prime ratio is between 8 and 15 consistent with indeterminate filling pressures. Evidence suggests grade I (mild) diastolic dysfunction. Right Ventricle Normal right ventricular cavity size. There is low normal right ventricular systolic function. Atria Both atria are normal in size. Aortic Valve The aortic valve was not well visualized. There is no aortic valve stenosis. There is trace (trivial) aortic valve regurgitation. Mitral Valve The mitral valve appears normal. There is no mitral valve regurgitation. There is no mitral valve stenosis. Pulmonic Valve The pulmonic valve was not well visualized. Tricuspid Valve Normal tricuspid valve structure. There is mild tricuspid valve regurgitation. The right ventricular systolic pressure is 51 mmHg. Mild to moderate pulmonary hypertension is present. Great Vessels The aortic annulus, sinuses of valsalva, and asc aorta are normal in size. Venous The inferior vena cava is normal in size and collapses less than 50% with inspiration. Pericardium/Pleural There is no evidence of pericardial effusion. Prior Study Comparison Changes noted compared to prior study dated: 12/05/2013. Increase in RVSP. Recommendations, Care & Conclusions No obvious valvular pathology seen on this study. Measurements 2D Linear Measurements IVSd: 0.87 0.6-0.9/0.6-1.0 cm LVIDd: 3.02 3.9-5.3/4.2-5.9 cm LVIDd Index: 1.77 2.4-3.2/2.2-3.1 cm/m2 LVIDs: 2.01 2.0-3.6 cm LVPWd: 0.82 0.7-1.1 cm Ao Root: 3.10 2.1-3.5 cm LA Diam: 2.30 2.7-3.8/3.0-4.0 cm LAIDs Index: 1.35 1.5-2.3 cm/m2 LV Mass: 80.51 67-162/88-224 g LV Mass Index: 47.08 43-95/49-115 g/m2 LVOT Diam: 2.00 3.0+(-)1.3 cm Mitral Valve MV Pk E: 0.67 MV PK A: 0.92 MV Decel Time: 117.00 E/A: 0.70 E'Lateral: 8.05 E'Medial: 4.68 E/E' Med: 14.30 E/E' Lat: 8.30 PHT: 34.00 MVA PHT: 6.47 Decel [place]: 5.69 Aortic Valve AoV Pk Riley: 1.73 AoV Mn Riley: 1.09 AoV VTI: 0.27 AoV Pk Grad: 12.00 Aov Mn Grad: 5.00 BALDEV Cont.VTI: 2.54 LVOT LVOT Pk Riley: 1.57 LVOT Mn Riley: 0.99 LVOT VTI: 0.22 LVOT Pk Grad: 10.00 LVOT Mn Grad: 5.00 LVOT Diam: 2.00 LVOT Area: 3.14 Diastolic Function MV Pk E: 0.67 MV Pk A: 0.92 E/A: 0.70 E'Medial: 4.68 E/E' Med: 14.30 E' Laterial: 8.05 E/E' Lat: 8.30 Right Ventricle TAPSE (mm): 1.63 Tricuspid Valve TR Pk Riley: 3.26 TR Pk Grad: 43.00 RA Press: 8.00 RVSP: 51.00 Great Vessels Aorta Ao Root-2D: 3.10 2.0-3.7 cm Ao Asc: 2.90 2.1-3.4 cm Updated in Other Vendor System with Status of Final Gibson Reeves MD electronically signed on 02/05/2021 4:23:16 PM with status of Final
[2021-02-05] MEDS: cefTRIAXone sodium 1 GM in 0.9 % Sodium Chloride 50 ML IV (17:44)
[2021-02-05] MEDS: Ferrous Sulfate 324 MG TABLET.DR PO (17:44)
[2021-02-05] MEDS: Heparin Sodium,Porcine/1/2NS 25,000 UNIT/250 ML IV.SOLN 6.44 UNIT IVCONT (19:25)
[2021-02-05] MEDS: Melatonin 3 MG TABLET PO (20:13)
[2021-02-05 23:49] LABS: PTT Heparin Drip 56.4 SEC (53-77.9)
[2021-02-06] VITALS (8 sets, daily range): BP systolic 122–162; BP diastolic 68–88; PULSE 92–109; RESP 20; TEMP 36.2–36.9; O2SAT 91–100
[2021-02-06] MEDS: Albuterol/Iprat 2.5/0.5MG 3 ML AMPUL.NEB INHALE ×6 (04:11→23:54)
[2021-02-06 06:20] LABS: PTT Heparin Drip 48.5 SEC (53-77.9)
[2021-02-06] MEDS: Heparin Sodium,Porcine 5,000 UNIT/ML VIAL 2600 UNIT IVPUSH (06:38)
[2021-02-06] MEDS: 0.9 % Sodium Chloride Flush 3 ML SYRINGE IVFLUSH (08:26)
[2021-02-06] MEDS: Ferrous Sulfate 324 MG TABLET.DR PO ×2 (08:26→15:31)
[2021-02-06 09:11] LABS: Hematocrit 29.1 % (37-47); Hemoglobin 8.7 g/dl (12.0-16.0)
--- NOTE | 2021-02-06 11:33 | PM.CNCAR ---
History of Present Illness History of Present Illness Date of Service: 02/06/21 Consult reason: myocardial infarction Chief complaint: PE Narrative: This is a cardiology consultation for elevated troponins/NSTEMI. She has a history of asthma/COPD, hypertension, breast cancer status post lumpectomy. Came for dizzy episode in the toilet leading to a fall and facial injury. In this setting, CT scan had shown bilateral pulmonary embolism. For the cardiac standpoint she had elevated troponins and hence we have been asked to see her. There is no history of any known coronary disease myocardial infarction. She does get short of breath which is possibly from her COPD itself. She also gets chest tightness episodes again probably from her pulmonary issues. Currently, she has facial bruising from the fall itself but otherwise feels okay. Review of Systems Review of Systems: Yes all other systems are reviewed and are negative Cardiovascular: Cardiovascular: Reports as per HPI, Reports no additional cardiovascular complaints, Denies acrocyanosis, Denies cool extremities, Denies painful fingertips, Denies chest pain, Denies chest pain at rest, Denies diaphoresis, Denies syncope, Denies irregular heart rhythm, Denies claudication, Denies leg edema, Denies lightheadedness, Denies palpitations and Reports dyspnea Respiratory: Respiratory: Reports dyspnea Neurologic: Denies syncope Endocrine: Endocrine: Denies palpitations PMF Past Medical History Medical History Anemia of chronic disease Asthma Depression History of breast cancer HLD (hyperlipidemia) Hypertension Smoker Family History Family History Mother History of breast cancer Sister History of breast cancer History of colon polyps History of colitis History of colon cancer Maternal Aunt History of breast cancer Surgical History Surgical History History of bronchoscopy (~04/28/11) History of colonoscopy (~09/10/08) History of esophagogastroduodenoscopy (EGD) (~08/09/11) History of excision of mass (~06/01/19) History of lumpectomy of right breast (~05/10/19) History of right breast biopsy (~04/26/19) History of toe surgery Social History Social History Household Members: Children Housing: House Alcohol intake: former Patient Tobacco Use Status: Former Tobacco user Quit Date: 05/2020 Currently Displaying Signs/Symptoms of Drug Intoxication Withdrawal: No Advance Directives: No Advance Directives Information Provided: No Do you have thoughts of harming others: None Do you have a plan to hurt others: No Plan Recently lost weight without trying: No Nutrition Risks: No Nutritional Risk service: No Current occupational status: disabled Meds Allergies Allergy/AdvReac Type Severity Reaction Status Date / Time penicillin G [Penicillin G] Allergy Mild RASH Verified 01/09/21 10:44 potassium [POTASSIUM] Allergy Unknown PEDAL EDEMA Verified 01/09/21 10:44 Active Medications: Current Medications Generic Name Dose Route Start Last Admin Trade Name Freq PRN Reason Stop Dose Admin Acetaminophen 650 mg 02/04/21 17:25 02/05/21 18:31 Acetaminophen 325 Mg Tablet PO 650 mg Q6H PRN Administration Pain, Mild (Pain Scale 1-3) Albuterol/Ipratropium 3 ml 02/05/21 12:00 02/06/21 11:08 Albuterol/Iprat 2.5/0.5mg 3 Ml Ampul.Neb INHALE Not Given RQ4H WHILE AWAKE BRITNEY Albuterol/Ipratropium 3 ml 02/05/21 10:28 02/06/21 10:19 Albuterol/Iprat 2.5/0.5mg 3 Ml Ampul.Neb INHALE 3 ml Q2H PRN Administration Shortness of Breath Docusate Sodium 100 mg 02/04/21 17:25 Docusate Sodium 100 Mg Capsule PO DAILY PRN Constipation Ferrous Sulfate 324 mg 02/05/21 17:00 02/06/21 08:26 Ferrous Sulfate 324 Mg Tablet. PO 324 mg BIDWM BRITNEY Administration Heparin Sodium (Porcine) 2,600 unit 02/04/21 16:29 02/06/21 06:38 Heparin Sodium,Porcine 5,000 Unit/Ml Vial 40 unit/kg (2600 unit) 2,600 unit IVPUSH Administration PROTOCOL BOLUS PRN 40 unit/kg - Heparin Protocol Protocol Heparin Sodium (Porcine) 5,200 unit 02/04/21 16:29 Heparin Sodium,Porcine 5,000 Unit/Ml Vial 80 unit/kg (5200 unit) IVPUSH PROTOCOL BOLUS PRN 80 unit/kg - Heparin Protocol Protocol Heparin Sodium/Sodium Chloride 25,000 unit in 250 mls @ 0 mls/hr 02/04/21 16:30 02/06/21 06:39 IVCONT 12 units/kg/hr .Q0M BRITNEY 7.73 mls/hr Titration Protocol Per Protocol Ceftriaxone Sodium 1 gm/ 50 mls @ 100 mls/hr 02/05/21 18:00 02/05/21 18:19 Sodium Chloride IV Infused Q24H BRITNEY Infusion Azithromycin 500 mg/ Sodium 250 mls @ 125 mls/hr 02/05/21 12:00 02/05/21 12:58 Chloride IV Infused Q24H BRITNEY Infusion Melatonin 3 mg 02/04/21 17:25 02/05/21 20:13 Melatonin 3 Mg Tablet PO 3 mg BEDTIME PRN Administration Insomnia Ondansetron HCl 4 mg 02/04/21 17:25 02/06/21 10:17 Ondansetron Hcl 4 Mg/2 Ml Vial IVPUSH 4 mg Q8H PRN Administration Nausea and Vomiting Pharmacy Consult 1 each 02/04/21 18:35 Consult Rx Perform Med Rec MISCELLANE ONCE PRN Consult order Sodium Chloride 3 ml 02/05/21 00:00 02/06/21 08:26 0.9 % Sodium Chloride Flush 3 Ml Syringe IVFLUSH 3 ml QSHIFT BRITNEY Administration Home Medications Medication Instructions Recorded Confirmed Last Taken Type albuterol sulfate 2.5 mg INHALATION Q4H 04/24/20 02/04/21 02/03/21 History amlodipine 2.5 mg tablet 2.5 mg PO DAILY 04/24/20 02/04/21 02/03/21 History atorvastatin 40 mg tablet 40 mg PO DAILY 04/24/20 02/04/21 02/03/21 History cholecalciferol (vitamin D3) 25 25 mcg PO DAILY 04/24/20 02/04/21 02/03/21 History mcg (1,000 unit) capsule clonazepam 0.5 mg tablet 0.5 mg PO BEDTIME 04/24/20 02/04/21 02/03/21 History fluoxetine 20 mg capsule 20 mg PO DAILY 04/24/20 02/04/21 02/03/21 History ibuprofen 800 mg tablet 800 mg PO DAILY 04/24/20 02/04/21 02/03/21 History irbesartan 300 mg tablet 300 mg PO QAM 04/24/20 02/04/21 02/03/21 History melatonin 5 mg tablet 5 mg PO BEDTIME PRN 04/24/20 02/04/21 02/03/21 History montelukast 10 mg tablet 10 mg PO DAILY 04/24/20 02/04/21 02/03/21 History tamoxifen 20 mg tablet 20 mg PO BEDTIME 04/24/20 02/04/21 02/03/21 History calcium 500 mg tablet 1,000 mg PO DAILY 02/04/21 02/04/21 02/03/21 History multivitamin 1 tab PO DAILY 02/04/21 02/04/21 02/03/21 History omeprazole 40 mg capsule,delayed 40 mg PO QAM 02/04/21 02/04/21 02/03/21 History release Physical Exam Vital Signs: Vital Signs: Last Vital Signs Temp 97.2 F 02/06/21 11:07 Pulse 109 H 02/06/21 11:07 Resp 20 02/06/21 11:07 BP 122/75 02/06/21 11:07 Pulse Ox 91 L 02/06/21 11:07 Oxygen Flow Rate 4 02/04/21 10:50 Body Mass Index 23.6 Const: General: cooperative and no acute distress HENMT: Other: Unremarkable Neck: Neck: Yes normal visual inspection Chest: Chest palpation & inspection: normal inspection of the chest Resp: Auscultation: clear to auscultation bilaterally, no crackles and no wheezes Cardio: Jugular venous distension: no JVD Palpation: normal PMI Heart sounds: S1 normal heart sound present, S2 normal heart sound present, no gallops, no murmurs and no rubs GI: Palpation (GI): Soft to palpation Back/Spine/Pelvis: Other: unremarkable Skin: General skin exam: no rashes or lesions noted Neuro: Cranial nerves: Yes Other cranial nerve findings present Extrem: General: Yes no clubbing, cyanosis or edema Psych: Mental Status: other Results Labs and Meds Result diagrams: 02/06/21 05:34 02/05/21 06:37 Lab results: Laboratory Results - last 24 hr 02/05/21 02/05/21 02/06/21 16:23 23:32 05:34 Hgb Hct APTT 92.9 H* PTT (Heparin Protocol) 56.4 48.5 L 02/06/21 05:34 Hgb 8.7 L Hct 29.1 L APTT PTT (Heparin Protocol) ECG Interpretation: EKG shows sinus rhythm and a nonspecific intraventricular conduction defect. Assessment and Plan (1) NSTEMI (non-ST elevated myocardial infarction): Status: Acute (2) Bilateral pulmonary embolism: Status: Acute Echocardiogram shows normal LVEF, 60-65%. There was no obvious wall motion abnormality. [id number] pulmonary hypertension and mild tricuspid regurgitation and probably from her recent pulmonary embolism. Troponins are 123 and 746. Possibly just from the pulmonary embolism/right ventricular strain. Underlying coronary disease is also possible. In this setting, treat this pulmonary embolism as you would otherwise do. When she is otherwise discharged in stable as an outpatient, then can consider stress testing. Discussed with family at the bedside. Procedures Date of Service Date of Service: 02/06/21
[2021-02-06] MEDS: Azithromycin 500 MG in 0.9 % Sodium Chloride 250 ML 125 MG IV (12:45)
[2021-02-06 12:51] LABS: PTT Heparin Drip 76.1 SEC (53-77.9)
[2021-02-06] MEDS: Acetaminophen 325 MG TABLET 650 MG PO (13:24)
[2021-02-06] MEDS: oxyCODONE HCl Immed Release 5 MG TABLET PO (15:33)
--- NOTE | 2021-02-06 15:52 | MHC.CM.PN ---
per radhajlti dis rounds pt expected to dc in 1 to 2 days
--- NOTE | 2021-02-06 16:31 | P.PNIM_ITS ---
Subjective Subjective Date of Service: 02/06/21 Interval History: Pulmonary embolism Review of Systems Patient is still short of breath, requiring oxygen Denies any chest pain or abdominal pain or nausea or vomiting fever or chills. Physical Exam Vital Signs: Vital Signs: Last Vital Signs Temp 98.4 F 02/06/21 15:11 Pulse 99 02/06/21 15:11 Resp 20 02/06/21 15:11 BP 136/80 02/06/21 15:11 Pulse Ox 100 02/06/21 15:11 Oxygen Flow Rate 4 02/04/21 10:50 Body Mass Index 23.6 Physical exam: Const:?? General: patient oriented x3 Chest:?? Chest palpation & inspection: normal inspection of the chest Resp:?? Clear to auscultat ion bilaterally no rales or wheezing . Cardio:?? no JVD?,rrr,s1s2 heard. GI:?? nd, nt,normal zaina l sounds Skin:?? laceration to the lipis, abrasion t o arms Neuro:?? patient oriented x 3? Cognition (Neur o): normal cogniti on? Motor exam (ne uro): 5/[address] rength present thr oughout Extrem: Yes full ROM Objective Data Current Medications Generic Name Dose Route Start Last Admin Trade Name Freq PRN Reason Stop Dose Admin Acetaminophen 650 mg 02/04/21 17:25 02/06/21 13:24 Acetaminophen 325 Mg Tablet PO 650 mg Q6H PRN Administration Pain, Mild (Pain Scale 1-3) Albuterol/Ipratropium 3 ml 02/05/21 12:00 02/06/21 15:09 Albuterol/Iprat 2.5/0.5mg 3 Ml Ampul.Neb INHALE 3 ml RQ4H WHILE AWAKE BRITNEY Administration Albuterol/Ipratropium 3 ml 02/05/21 10:28 02/06/21 10:19 Albuterol/Iprat 2.5/0.5mg 3 Ml Ampul.Neb INHALE 3 ml Q2H PRN Administration Shortness of Breath Docusate Sodium 100 mg 02/04/21 17:25 Docusate Sodium 100 Mg Capsule PO DAILY PRN Constipation Ferrous Sulfate 324 mg 02/05/21 17:00 02/06/21 15:31 Ferrous Sulfate 324 Mg Tablet. PO 324 mg BIDWM BRITNEY Administration Heparin Sodium (Porcine) 2,600 unit 02/04/21 16:29 02/06/21 06:38 Heparin Sodium,Porcine 5,000 Unit/Ml Vial 40 unit/kg (2600 unit) 2,600 unit IVPUSH Administration PROTOCOL BOLUS PRN 40 unit/kg - Heparin Protocol Protocol Heparin Sodium (Porcine) 5,200 unit 02/04/21 16:29 Heparin Sodium,Porcine 5,000 Unit/Ml Vial 80 unit/kg (5200 unit) IVPUSH PROTOCOL BOLUS PRN 80 unit/kg - Heparin Protocol Protocol Heparin Sodium/Sodium Chloride 25,000 unit in 250 mls @ 0 mls/hr 02/04/21 16:30 02/06/21 06:39 IVCONT 12 units/kg/hr .Q0M BRITNEY 7.73 mls/hr Titration Protocol Per Protocol Ceftriaxone Sodium 1 gm/ 50 mls @ 100 mls/hr 02/05/21 18:00 02/05/21 18:19 Sodium Chloride IV Infused Q24H BRITNEY Infusion Azithromycin 500 mg/ Sodium 250 mls @ 125 mls/hr 02/05/21 12:00 02/06/21 14:46 Chloride IV Infused Q24H BRITNEY Infusion Melatonin 3 mg 02/04/21 17:25 02/05/21 20:13 Melatonin 3 Mg Tablet PO 3 mg BEDTIME PRN Administration Insomnia Ondansetron HCl 4 mg 02/04/21 17:25 02/06/21 10:17 Ondansetron Hcl 4 Mg/2 Ml Vial IVPUSH 4 mg Q8H PRN Administration Nausea and Vomiting Pharmacy Consult 1 each 02/04/21 18:35 Consult Rx Perform Med Rec MISCELLANE ONCE PRN Consult order Sodium Chloride 3 ml 02/05/21 00:00 02/06/21 08:26 0.9 % Sodium Chloride Flush 3 Ml Syringe IVFLUSH 3 ml QSHIFT BRITNEY Administration Labs CBC & Chem 7: 02/06/21 05:34 02/05/21 06:37 Labs: Laboratory Results - last 24 hr 02/05/21 02/05/21 02/06/21 16:23 23:32 05:34 APTT 92.9 H* PTT (Heparin Protocol) 56.4 48.5 L 02/06/21 12:24 APTT PTT (Heparin Protocol) 76.1 D Microbiology Microbiology Results: Microbiology 02/04/21 17:16 Blood Culture - Preliminary Blood - Venous No growth after 24 hours. 02/04/21 17:07 Blood Culture - Preliminary Blood - Venous No growth after 24 hours. Assessment and Plan (1) Pulmonary nodules: Status: Acute Assessment and Plan: 70-year-old female with a past medical history of vertigo, asthma-COPD overlap syndrome, pulmonary nodules, hypertension and history of breast cancer (invasive ductal carcinoma, MS BR grade 2, no lymphovascular invasion)? in 2019 s/p lumpe ctomy and deffered chemo--followed by Dr. Zayas came to ED follow here with dizziness, fall and found to have bilateral PE and pulmonary nodule, and probably penumonia. 1/Pulmonary embolism--likely related to malignancy -continue Anticoagulation with Heparin, monitor H/H -Echo pending -Hematology/Oncology consult eval-continue iv haprain-?switched to Lovenox 1 mg/kg b.i.d. been hemodynamically stable and continue this for a month before switching to oral anticoagulation with DOAC. 2/PNA--Ceftriaxone, Azithro D2,? 3/ Pulmonary nodules--likely mets, may need further work, oncology to direct this 4/ Fall/dizziness, no syncope--tele monitor, no arythmia 5/ Anemia--Chronic likely from chronic disease, follow cbc closely while on heparin. hematolgy recomended outpatient Gi workup . 6/COPD/Asthma-Bronchodilators, I don't think there is acute exacerbation, Bronchodilators, steroid if as maybe having exacerbation 7/HTN--BP within normal, hold meds f(Norvasc and Ibersartant) 8/Elevated troponin, likely type 2 RI from PE, Echo, repeat tropos, if worsening, cardiology consult,? echo as abofe. have cardiology comment on this 9/ H/o of CA, hold Tamoxifen as pro thrombotic, oncology to comment on it 10/GERD--Omeprazole 11/HLD--Lipitor 12/Depression --Fluoxetin 13/DVT prophylaxis--Heparin, Full Code, discussed with daughter and patient Quality Stroke Does the patient have a stroke diagnosis?: No VTE Prior VTE?: No VTE Risk Level:: Medical - moderate - high VTE Device Contraindication: N/A - Device Ordered VTE Drug Contraindication: N/A - Med Ordered
[2021-02-06] MEDS: cefTRIAXone sodium 1 GM in 0.9 % Sodium Chloride 50 ML IV (17:26)
[2021-02-06 18:46] LABS: PTT Heparin Drip 59.9 SEC (53-77.9)
[2021-02-07] VITALS (9 sets, daily range): BP systolic 136–150; BP diastolic 67–81; PULSE 96–113; RESP 18–20; TEMP 36–36.8; O2SAT 91–98
[2021-02-07] MEDS: Heparin Sodium,Porcine/1/2NS 25,000 UNIT/250 ML IV.SOLN 7.73 UNIT IVCONT (02:42)
[2021-02-07] MEDS: Albuterol/Iprat 2.5/0.5MG 3 ML AMPUL.NEB INHALE ×5 (04:33→19:54)
[2021-02-07 06:20] LABS: Hematocrit 28.6 % (37-47); Hemoglobin 8.5 g/dl (12.0-16.0); Mean Corpuscular HGB Conc 29.7 g/dl (31.0-35.0); Mean Corpuscular Hemoglobin 25.4 pg (27.0-33.0); Mean Corpuscular Volume 85.6 fL (80-98); Mean Platelet Volume 10.5 fL (9.4-12.3); NRBC Pct Auto 0.2 /100WBC (0.0-0.2); Platelet Count 194 X10*3/uL (160-400); Red Blood Count 3.34 X10*6/uL (4.20-5.50); Red Cell Distribution Width 15.3 % (11.0-16.0); White Blood Count 10.3 X10*3/uL (4.8-10.8)
[2021-02-07 06:26] LABS: PTT Heparin Drip 54.1 SEC (53-77.9)
[2021-02-07 06:43] LABS: Anion Gap 9 (12-20); Blood Urea Nitrogen 20 mg/dL (9-16); Calcium 8.3 mg/dL (8.4-10.2); Carbon Dioxide 27 mmol/L (22-29); Chloride 110 mmol/L (96-108); Creatinine Clr Calc Pharmacy 53.1; Estimated Glomerular Filt Rate > 60; Glucose Random 128 mg/dL (60-115); Potassium 4.2 mmol/L (3.3-5.1); Sodium 142 mmol/L (135-145)
[2021-02-07] MEDS: Acetaminophen 325 MG TABLET 650 MG PO ×2 (08:59→20:57)
[2021-02-07] MEDS: Ferrous Sulfate 324 MG TABLET.DR PO ×2 (09:16→17:35)
[2021-02-07] MEDS: 0.9 % Sodium Chloride Flush 3 ML SYRINGE IVFLUSH ×3 (09:16→20:57)
--- NOTE | 2021-02-07 11:13 | PM.PNCARD ---
Subjective Subjective Date of Service: 02/07/21 Interval history: States that she is feeling better. Review of Systems Review of Systems Yes all other systems are reviewed and are negative Cardiovascular: Reports as per HPI, Reports no additional cardiovascular complaints, Denies acrocyanosis, Denies cool extremities, Denies painful fingertips, Denies chest pain, Denies chest pain at rest, Denies diaphoresis, Denies syncope, Denies irregular heart rhythm, Denies claudication, Denies leg edema, Denies lightheadedness, Denies palpitations and Reports dyspnea Respiratory: Reports dyspnea Denies syncope Endocrine: Denies palpitations Physical Exam Vital Signs: Last Vital Signs Temp 97.3 F 02/07/21 10:55 Pulse 98 02/07/21 10:55 Resp 20 02/07/21 10:55 BP 140/81 H 02/07/21 10:55 Pulse Ox 92 02/07/21 10:55 Oxygen Flow Rate 4 02/04/21 10:50 Body Mass Index 23.6 Const General: cooperative and no acute distress [facility] Other: Unremarkable Neck Neck: Yes normal visual inspection Chest Chest palpation & inspection: normal inspection of the chest Resp Auscultation: clear to auscultation bilaterally, no crackles and no wheezes Cardio Jugular venous distension: no JVD Palpation: normal PMI Heart sounds: S1 normal heart sound present, S2 normal heart sound present, no gallops, no murmurs and no rubs GI Palpation (GI): Soft to palpation Back/Spine/Pelvis Other: unremarkable Skin General skin exam: no rashes or lesions noted Neuro Cranial nerves: Yes Other cranial nerve findings present Extrem General: Yes no clubbing, cyanosis or edema Psych Mental Status: other Results Labs and Meds Result diagrams: 02/07/21 05:52 02/07/21 05:52 Lab results: Laboratory Results - last 24 hr 02/06/21 02/06/21 02/07/21 12:24 18:30 05:52 WBC 10.3 RBC 3.34 L Hgb 8.5 L Hct 28.6 L MCV 85.6 MCH 25.4 L MCHC 29.7 L RDW 15.3 Plt Count 194 MPV 10.5 Absolute Nucleated RBC 0.020 H Nucleated RBC % (auto) 0.2 PTT (Heparin Protocol) 76.1 D 59.9 D Sodium Potassium Chloride Carbon Dioxide Anion Gap BUN Creatinine Estim Creat Clear Calc Estimated GFR Random Glucose Calcium 02/07/21 02/07/21 05:52 05:52 WBC RBC Hgb Hct MCV MCH MCHC RDW Plt Count MPV Absolute Nucleated RBC Nucleated RBC % (auto) PTT (Heparin Protocol) 54.1 Sodium 142 Potassium 4.2 Chloride 110 H Carbon Dioxide 27 Anion Gap 9 L BUN 20 H Creatinine 0.86 Estim Creat Clear Calc 53.1 Estimated GFR > 60 Random Glucose 128 H Calcium 8.3 L Progress Note: A&P Assessment and plan (1) NSTEMI (non-ST elevated myocardial infarction): Status: Acute (2) Bilateral pulmonary embolism: Status: Acute Assessment and Plan: Echocardiogram shows normal LVEF, 60-65%. There was no obvious wall motion abnormality. [id number] pulmonary hypertension and mild tricuspid regurgitation and probably from her recent pulmonary embolism. Troponins are 123 and 746. Possibly just from the pulmonary embolism/right ventricular strain. Underlying coronary disease is also possible. In this setting, treat this pulmonary embolism as you would otherwise do. When she is otherwise discharged in stable as an outpatient, then can consider stress testing. Discussed with daughter at the bedside. FU will be arranged in office. Fall Risk Details Current Medications: Current Medications Generic Name Dose Route Start Last Admin Trade Name Freq PRN Reason Stop Dose Admin Acetaminophen 650 mg 02/04/21 17:25 02/07/21 08:59 Acetaminophen 325 Mg Tablet PO 650 mg Q6H PRN Administration Pain, Mild (Pain Scale 1-3) Albuterol/Ipratropium 3 ml 02/05/21 12:00 02/07/21 07:58 Albuterol/Iprat 2.5/0.5mg 3 Ml Ampul.Neb INHALE 3 ml RQ4H WHILE AWAKE BRITNEY Administration Albuterol/Ipratropium 3 ml 02/05/21 10:28 02/07/21 04:33 Albuterol/Iprat 2.5/0.5mg 3 Ml Ampul.Neb INHALE 3 ml Q2H PRN Administration Shortness of Breath Docusate Sodium 100 mg 02/04/21 17:25 Docusate Sodium 100 Mg Capsule PO DAILY PRN Constipation Enoxaparin Sodium 65 mg 02/07/21 12:00 Enoxaparin Sodium 80 Mg/0.8 Ml Syringe SUBCUT Q12H BRITNEY Ferrous Sulfate 324 mg 02/05/21 17:00 02/07/21 09:16 Ferrous Sulfate 324 Mg Tablet. PO 324 mg BIDWM BRITNEY Administration Ceftriaxone Sodium 1 gm/ 50 mls @ 100 mls/hr 02/05/21 18:00 02/06/21 18:01 Sodium Chloride IV Infused Q24H BRITNEY Infusion Azithromycin 500 mg/ Sodium 250 mls @ 125 mls/hr 02/05/21 12:00 02/06/21 14:46 Chloride IV Infused Q24H BRITNEY Infusion Melatonin 3 mg 02/04/21 17:25 02/05/21 20:13 Melatonin 3 Mg Tablet PO 3 mg BEDTIME PRN Administration Insomnia Ondansetron HCl 4 mg 02/04/21 17:25 02/06/21 18:38 Ondansetron Hcl 4 Mg/2 Ml Vial IVPUSH 4 mg Q8H PRN Administration Nausea and Vomiting Pharmacy Consult 1 each 02/04/21 18:35 Consult Rx Perform Med Rec MISCELLANE ONCE PRN Consult order Sodium Chloride 3 ml 02/05/21 00:00 02/07/21 09:16 0.9 % Sodium Chloride Flush 3 Ml Syringe IVFLUSH 3 ml QSHIFT BRITNEY Administration Time Spent With Patient Time: Total time spent is greater than 50% in coordination of care (as documented) at patient's floor/unit and/or counseling patient: Time with patient: less than 15 minutes Progress Note: Quality Stroke Does the patient have a stroke diagnosis?: No Procedures Date of Service Date of Service: 02/07/21
[2021-02-07 11:15] LABS: Hematocrit 28.1 % (37-47); Hemoglobin 8.4 g/dl (12.0-16.0); Mean Corpuscular HGB Conc 29.9 g/dl (31.0-35.0); Mean Corpuscular Hemoglobin 25.6 pg (27.0-33.0); Mean Corpuscular Volume 85.7 fL (80-98); Mean Platelet Volume 9.9 fL (9.4-12.3); NRBC Pct Auto 0.2 /100WBC (0.0-0.2); Platelet Count 176 X10*3/uL (160-400); Red Blood Count 3.28 X10*6/uL (4.20-5.50); Red Cell Distribution Width 15.3 % (11.0-16.0); White Blood Count 11.1 X10*3/uL (4.8-10.8)
[2021-02-07 11:25] LABS: INTERNATIONAL NORM RATIO 1.2 (0.9-1.1); Prothrombin Time 13.7 SEC (9.9-13.0)
[2021-02-07 11:28] LABS: Partial Thromboplastin Time 53.5 SEC (24.1-38.0)
[2021-02-07 11:37] LABS: CA 27.29 11 U/mL (<38)
[2021-02-07] MEDS: Enoxaparin Sodium 80 MG/0.8 ML SYRINGE 65 MG SUBCUT (12:33)
[2021-02-07] MEDS: Azithromycin 500 MG in 0.9 % Sodium Chloride 250 ML 125 MG IV (12:35)
[2021-02-07] MEDS: cefTRIAXone sodium 1 GM in 0.9 % Sodium Chloride 50 ML IV (17:42)
[2021-02-08] VITALS (12 sets, daily range): BP systolic 130–160; BP diastolic 74–80; PULSE 95–110; RESP 18–22; TEMP 35.5–36.9; O2SAT 86–99
[2021-02-08] MEDS: Albuterol/Iprat 2.5/0.5MG 3 ML AMPUL.NEB INHALE ×7 (00:22→22:41)
[2021-02-08] MEDS: Enoxaparin Sodium 80 MG/0.8 ML SYRINGE 65 MG SUBCUT ×2 (00:22→13:02)
[2021-02-08 07:26] LABS: Hematocrit 27.4 % (37-47); Hemoglobin 8.1 g/dl (12.0-16.0); Mean Corpuscular HGB Conc 29.6 g/dl (31.0-35.0); Mean Corpuscular Hemoglobin 25.2 pg (27.0-33.0); Mean Corpuscular Volume 85.4 fL (80-98); Mean Platelet Volume 10.9 fL (9.4-12.3); Platelet Count 187 X10*3/uL (160-400); Red Blood Count 3.21 X10*6/uL (4.20-5.50); Red Cell Distribution Width 15.4 % (11.0-16.0); White Blood Count 7.7 X10*3/uL (4.8-10.8)
--- NOTE | 2021-02-08 08:03 | HO.PM.IMPN ---
Subjective Subjective Date of Service: 02/09/21 Interval History: Seen in f/u for PE, PNA, short of breath, O2 92, feels some SOB Review of Systems Gen: no fever Resp: SOB CV: no chest, no MOSLEY, no leg edema GI: No n/v, no abd pain Neuro: No confusion Physical Exam Vital Signs: Vital Signs: Last Vital Signs Temp 96 F L 02/08/21 06:51 Pulse 96 02/08/21 07:17 Resp 20 02/08/21 06:51 BP 152/80 H 02/08/21 06:51 Pulse Ox 93 02/08/21 06:51 Oxygen Flow Rate 4 02/04/21 10:50 Body Mass Index 23.6 Const: Other: General: AO X 3, no acute distress HEENT--laceration of lips with assoiated bruse up to chin Resp:? CTA bilateral CVS: S1,S2,RRR GI: +BS, NT, no distention Skin: No rash Neuro:? motor grossly intact Psych: appropriate affect HENMT: Head: Yes normal to inspection and Yes No palpable skull fracture present Neck: Neck: Yes normal visual inspection Thyroid: Thyroid normal Chest: Chest palpation & inspection: normal inspection of the chest Resp: Effort & Inspection: normal respiratory effort and able to speak in complete sentences Auscultation: clear to auscultation bilaterally Cardio: Jugular venous distension: no JVD Rate: regular rate Rhythm: regular rhythm Heart sounds: S1 normal heart sound present and S2 normal heart sound present GI: Auscultation: normal bowel sounds Skin: Other: laceration to the lipis, abrasion to arms Neuro: Cognition (Neuro): normal cognition Motor exam (neuro): 5/5 motor strength present throughout Extrem: General: Yes full ROM Psych: Appearance: grossly normal and well kempt Objective Data Current Medications Generic Name Dose Route Start Last Admin Trade Name Freq PRN Reason Stop Dose Admin Acetaminophen 650 mg 02/04/21 17:25 02/07/21 20:57 Acetaminophen 325 Mg Tablet PO 650 mg Q6H PRN Administration Pain, Mild (Pain Scale 1-3) Albuterol/Ipratropium 3 ml 02/05/21 12:00 02/08/21 07:17 Albuterol/Iprat 2.5/0.5mg 3 Ml Ampul.Neb INHALE 3 ml RQ4H WHILE AWAKE BRITNEY Administration Albuterol/Ipratropium 3 ml 02/05/21 10:28 02/08/21 05:23 Albuterol/Iprat 2.5/0.5mg 3 Ml Ampul.Neb INHALE 3 ml Q2H PRN Administration Shortness of Breath Docusate Sodium 100 mg 02/04/21 17:25 Docusate Sodium 100 Mg Capsule PO DAILY PRN Constipation Enoxaparin Sodium 65 mg 02/07/21 12:00 02/08/21 00:22 Enoxaparin Sodium 80 Mg/0.8 Ml Syringe SUBCUT 65 mg Q12H BRITNEY Administration Ferrous Sulfate 324 mg 02/05/21 17:00 02/07/21 17:35 Ferrous Sulfate 324 Mg Tablet. PO 324 mg BIDWM BRITNEY Administration Ceftriaxone Sodium 1 gm/ 50 mls @ 100 mls/hr 02/05/21 18:00 02/07/21 18:12 Sodium Chloride IV Infused Q24H BRITNEY Infusion Azithromycin 500 mg/ Sodium 250 mls @ 125 mls/hr 02/05/21 12:00 02/07/21 14:35 Chloride IV Infused Q24H BRITNEY Infusion Melatonin 3 mg 02/04/21 17:25 02/05/21 20:13 Melatonin 3 Mg Tablet PO 3 mg BEDTIME PRN Administration Insomnia Ondansetron HCl 4 mg 02/04/21 17:25 02/06/21 18:38 Ondansetron Hcl 4 Mg/2 Ml Vial IVPUSH 4 mg Q8H PRN Administration Nausea and Vomiting Pharmacy Consult 1 each 02/04/21 18:35 Consult Rx Perform Med Rec MISCELLANE ONCE PRN Consult order Sodium Chloride 3 ml 02/05/21 00:00 02/07/21 20:57 0.9 % Sodium Chloride Flush 3 Ml Syringe IVFLUSH 3 ml QSHIFT BRITNEY Administration Labs CBC & Chem 7: 02/09/21 04:34 02/09/21 04:34 Labs: Laboratory Results - last 24 hr 02/05/21 02/07/21 02/07/21 06:37 10:51 10:51 MCV 85.7 MCH 25.6 L MCHC 29.9 L RDW 15.3 Plt Count 176 MPV 9.9 Absolute Nucleated RBC 0.020 H Nucleated RBC % (auto) 0.2 PT 13.7 H INR 1.2 H APTT 53.5 H D CA 27-29 11 02/08/21 06:01 MCV 85.4 MCH 25.2 L MCHC 29.6 L RDW 15.4 Plt Count 187 MPV 10.9 Absolute Nucleated RBC 0.000 Nucleated RBC % (auto) 0.0 PT INR APTT CA 27-29 Assessment and Plan (1) Pulmonary embolism: Status: Acute Assessment and Plan: 70-year-old female with a past medical history of vertigo, asthma-COPD overlap syndrome, pulmonary nodules, hypertension and history of breast cancer (invasive ductal carcinoma, MS BR grade 2, no lymphovascular invasion)? in 2019 s/p lumpectomy and deffered chemo--followed by Dr. Zayas came to ED follow here with dizziness, fall and found to have bilateral PE and pulmonary nodule, and probably penumonia. 1/Pulmonary embolism--likely related to malignancy -continue Anticoagulation with Heparin, -Echo pending -Hematology/Oncology consult eval- Was on Heparin for 3 days, then changed to Lovenox 1mg/kg, 2/PNA--Ceftriaxone, Azithro D4,? 3/ Pulmonary nodules--likely mets, may need further work later 4/ Fall/dizziness, no syncope--tele monitor, no arythmia 5/ Anemia--Chronic likely from chronic disease, follow cbc closely while on heparin. hematolgy recomended outpatient Gi workup . 6/COPD/Asthma-Bronchodilators, bronchodilators, add steroid for mild exacerbation 7/HTN--BP within normal, hold meds f(Norvasc and Ibersartant) 8/Elevated troponin, likely type 2 [place] from PE echocardiogram shows normal LVEF, 60-65%, no wall motion abnormalities. Cardiology advises no further work up 9/ H/o of CA, hold Tamoxifen per oncology 10/GERD--Omeprazole 11/HLD--Lipitor 12/Depression --Fluoxetin Quality Stroke Does the patient have a stroke diagnosis?: No VTE Prior VTE?: No VTE Risk Level:: Medical - moderate - high VTE Device Contraindication: N/A - Device Ordered VTE Drug Contraindication: N/A - Med Ordered
[2021-02-08] MEDS: predniSONE 20 MG TABLET PO (08:45)
[2021-02-08] MEDS: Ferrous Sulfate 324 MG TABLET.DR PO ×2 (08:47→15:16)
[2021-02-08] MEDS: 0.9 % Sodium Chloride Flush 3 ML SYRINGE IVFLUSH ×2 (08:47→13:03)
--- NOTE | 2021-02-08 10:43 | PM.PNCARD ---
Subjective Subjective Date of Service: 02/08/21 Interval history: She states that she is feeling better Review of Systems Review of Systems Yes all other systems are reviewed and are negative Cardiovascular: Reports as per HPI, Reports no additional cardiovascular complaints, Denies acrocyanosis, Denies cool extremities, Denies painful fingertips, Denies chest pain, Denies chest pain at rest, Denies diaphoresis, Denies syncope, Denies irregular heart rhythm, Denies claudication, Denies leg edema, Denies lightheadedness, Denies palpitations and Reports dyspnea Respiratory: Reports dyspnea Denies syncope Endocrine: Denies palpitations Physical Exam Vital Signs: Last Vital Signs Temp 96 F L 02/08/21 06:51 Pulse 96 02/08/21 07:17 Resp 20 02/08/21 06:51 BP 152/80 H 02/08/21 06:51 Pulse Ox 92 02/08/21 08:50 Oxygen Flow Rate 4 02/04/21 10:50 Body Mass Index 23.6 Const General: cooperative and no acute distress [facility] Other: Unremarkable Neck Neck: Yes normal visual inspection Chest Chest palpation & inspection: normal inspection of the chest Resp Auscultation: clear to auscultation bilaterally, no crackles and no wheezes Cardio Jugular venous distension: no JVD Palpation: normal PMI Heart sounds: S1 normal heart sound present, S2 normal heart sound present, no gallops, no murmurs and no rubs GI Palpation (GI): Soft to palpation Back/Spine/Pelvis Other: unremarkable Skin General skin exam: no rashes or lesions noted Neuro Cranial nerves: Yes Other cranial nerve findings present Extrem General: Yes no clubbing, cyanosis or edema Psych Mental Status: other Results Labs and Meds Result diagrams: 02/08/21 06:01 02/07/21 05:52 Lab results: Laboratory Results - last 24 hr 02/05/21 02/07/21 02/07/21 06:37 10:51 10:51 WBC 11.1 H RBC 3.28 L Hgb 8.4 L Hct 28.1 L MCV 85.7 MCH 25.6 L MCHC 29.9 L RDW 15.3 Plt Count 176 MPV 9.9 Absolute Nucleated RBC 0.020 H Nucleated RBC % (auto) 0.2 PT 13.7 H INR 1.2 H APTT 53.5 H D CA 27-29 11 02/08/21 06:01 WBC 7.7 RBC 3.21 L Hgb 8.1 L Hct 27.4 L MCV 85.4 MCH 25.2 L MCHC 29.6 L RDW 15.4 Plt Count 187 MPV 10.9 Absolute Nucleated RBC 0.000 Nucleated RBC % (auto) 0.0 PT INR APTT CA 27- Progress Note: A&P Assessment and plan (1) NSTEMI (non-ST elevated myocardial infarction): Status: Acute (2) Bilateral pulmonary embolism: Status: Acute Assessment and Plan: Echocardiogram shows normal LVEF, 60-65%. There was no obvious wall motion abnormality. [id number] pulmonary hypertension and mild tricuspid regurgitation and probably from her recent pulmonary embolism. Troponins are 123 and 746. Possibly just from the pulmonary embolism/right ventricular strain. Underlying coronary disease is also possible. In this setting, treat this pulmonary embolism as you would otherwise do. When she is otherwise discharged in stable as an outpatient, then can consider stress testing. Telemetry shows SR; PACs with short runs; no specific treatment for that. Fall Risk Details Current Medications: Current Medications Generic Name Dose Route Start Last Admin Trade Name Freq PRN Reason Stop Dose Admin Acetaminophen 650 mg 02/04/21 17:25 02/07/21 20:57 Acetaminophen 325 Mg Tablet PO 650 mg Q6H PRN Administration Pain, Mild (Pain Scale 1-3) Albuterol/Ipratropium 3 ml 02/05/21 12:00 02/08/21 07:17 Albuterol/Iprat 2.5/0.5mg 3 Ml Ampul.Neb INHALE 3 ml RQ4H WHILE AWAKE BRITNEY Administration Albuterol/Ipratropium 3 ml 02/05/21 10:28 02/08/21 05:23 Albuterol/Iprat 2.5/0.5mg 3 Ml Ampul.Neb INHALE 3 ml Q2H PRN Administration Shortness of Breath Docusate Sodium 100 mg 02/04/21 17:25 Docusate Sodium 100 Mg Capsule PO DAILY PRN Constipation Enoxaparin Sodium 65 mg 02/07/21 12:00 02/08/21 00:22 Enoxaparin Sodium 80 Mg/0.8 Ml Syringe SUBCUT 65 mg Q12H BRITNEY Administration Ferrous Sulfate 324 mg 02/05/21 17:00 02/08/21 08:47 Ferrous Sulfate 324 Mg Tablet. PO 324 mg BIDWM BRITNEY Administration Ceftriaxone Sodium 1 gm/ 50 mls @ 100 mls/hr 02/05/21 18:00 02/07/21 18:12 Sodium Chloride IV Infused Q24H BRITNEY Infusion Azithromycin 500 mg/ Sodium 250 mls @ 125 mls/hr 02/05/21 12:00 02/07/21 14:35 Chloride IV Infused Q24H BRITNEY Infusion Melatonin 3 mg 02/04/21 17:25 02/05/21 20:13 Melatonin 3 Mg Tablet PO 3 mg BEDTIME PRN Administration Insomnia Ondansetron HCl 4 mg 02/04/21 17:25 02/06/21 18:38 Ondansetron Hcl 4 Mg/2 Ml Vial IVPUSH 4 mg Q8H PRN Administration Nausea and Vomiting Pharmacy Consult 1 each 02/04/21 18:35 Consult Rx Perform Med Rec MISCELLANE ONCE PRN Consult order Prednisone 20 mg 02/08/21 09:00 02/08/21 08:45 Prednisone 20 Mg Tablet PO 20 mg DAILY BRITNEY Administration Sodium Chloride 3 ml 02/05/21 00:00 02/08/21 08:47 0.9 % Sodium Chloride Flush 3 Ml Syringe IVFLUSH 3 ml QSHIFT BRITNEY Administration Time Spent With Patient Time: Total time spent is greater than 50% in coordination of care (as documented) at patient's floor/unit and/or counseling patient: Time with patient: less than 15 minutes Progress Note: Quality Stroke Does the patient have a stroke diagnosis?: No Procedures Date of Service Date of Service: 02/08/21
[2021-02-08 11:00] LABS: INTERNATIONAL NORM RATIO 1.2 (0.9-1.1)
[2021-02-08] MEDS: Azithromycin 500 MG in 0.9 % Sodium Chloride 250 ML 125 MG IV (13:02)
[2021-02-08] MEDS: cefTRIAXone sodium 1 GM in 0.9 % Sodium Chloride 50 ML IV (15:15)
[2021-02-08] MEDS: Acetaminophen 325 MG TABLET 650 MG PO (18:17)
[2021-02-09] VITALS (12 sets, daily range): BP systolic 142–176; BP diastolic 67–87; PULSE 80–123; RESP 18–22; TEMP 36.1–36.7; O2SAT 91–96
[2021-02-09] MEDS: Enoxaparin Sodium 80 MG/0.8 ML SYRINGE 65 MG SUBCUT ×2 (00:02→12:00)
[2021-02-09] MEDS: 0.9 % Sodium Chloride Flush 3 ML SYRINGE IVFLUSH ×3 (00:04→17:20)
[2021-02-09] MEDS: Albuterol/Iprat 2.5/0.5MG 3 ML AMPUL.NEB INHALE ×5 (04:17→19:30)
[2021-02-09 04:55] LABS: Hemoglobin 8.1 g/dl (12.0-16.0); Mean Corpuscular Hemoglobin 24.9 pg (27.0-33.0); Mean Corpuscular Volume 83.1 fL (80-98); Mean Platelet Volume 10.3 fL (9.4-12.3); NRBC Pct Auto 0.3 /100WBC (0.0-0.2); Platelet Count 215 X10*3/uL (160-400); Red Blood Count 3.25 X10*6/uL (4.20-5.50); Red Cell Distribution Width 15.6 % (11.0-16.0); White Blood Count 7.7 X10*3/uL (4.8-10.8)
[2021-02-09 05:21] LABS: Anion Gap 13 (12-20); Blood Urea Nitrogen 11 mg/dL (9-16); Calcium 8.5 mg/dL (8.4-10.2); Carbon Dioxide 28 mmol/L (22-29); Chloride 107 mmol/L (96-108); Creatinine Clr Calc Pharmacy 60.2; Estimated Glomerular Filt Rate > 60; Glucose Random 127 mg/dL (60-115); Potassium 4.1 mmol/L (3.3-5.1); Sodium 144 mmol/L (135-145)
[2021-02-09] MEDS: predniSONE 20 MG TABLET PO (09:39)
[2021-02-09] MEDS: Ferrous Sulfate 324 MG TABLET.DR PO ×2 (09:40→17:20)
[2021-02-09] MEDS: Azithromycin 500 MG in 0.9 % Sodium Chloride 250 ML 125 MG IV (11:59)
--- NOTE | 2021-02-09 13:06 | HO.PM.IMPN ---
Subjective Subjective Date of Service: 02/09/21 Interval History: Seen in f/u for PE, PNA, short of breath, O2 94 Review of Systems Gen: no fever Resp: SOB CV: no chest, no MOSLEY, no leg edema GI: No n/v, no abd pain Neuro: No confusion Physical Exam Vital Signs: Vital Signs: Last Vital Signs Temp 98.1 F 02/09/21 11:18 Pulse 103 H 02/09/21 11:28 Resp 18 02/09/21 11:18 BP 142/73 H 02/09/21 11:18 Pulse Ox 94 02/09/21 11:18 Oxygen Flow Rate 4 02/04/21 10:50 Body Mass Index 23.6 Const: Other: General: AO X 3, no acute distress HEENT--laceration of lips with assoiated bruse up to chin Resp:? CTA bilateral CVS: S1,S2,RRR GI: +BS, NT, no distention Skin: No rash Neuro:? motor grossly intact Psych: appropriate affect Objective Data Current Medications Generic Name Dose Route Start Last Admin Trade Name Faiza PRN Reason Stop Dose Admin Acetaminophen 650 mg 02/04/21 17:25 02/08/21 18:17 Acetaminophen 325 Mg Tablet PO 650 mg Q6H PRN Administration Pain, Mild (Pain Scale 1-3) Albuterol/Ipratropium 3 ml 02/05/21 12:00 02/09/21 11:27 Albuterol/Iprat 2.5/0.5mg 3 Ml Ampul.Neb INHALE 3 ml RQ4H WHILE AWAKE BRITNEY Administration Albuterol/Ipratropium 3 ml 02/05/21 10:28 02/09/21 04:17 Albuterol/Iprat 2.5/0.5mg 3 Ml Ampul.Neb INHALE 3 ml Q2H PRN Administration Shortness of Breath Docusate Sodium 100 mg 02/04/21 17:25 Docusate Sodium 100 Mg Capsule PO DAILY PRN Constipation Enoxaparin Sodium 65 mg 02/07/21 12:00 02/09/21 12:00 Enoxaparin Sodium 80 Mg/0.8 Ml Syringe SUBCUT 65 mg Q12H BRITNEY Administration Ferrous Sulfate 324 mg 02/05/21 17:00 02/09/21 09:40 Ferrous Sulfate 324 Mg Tablet. PO 324 mg BIDWM BRITNEY Administration Ceftriaxone Sodium 1 gm/ 50 mls @ 100 mls/hr 02/05/21 18:00 02/08/21 16:03 Sodium Chloride IV Infused Q24H BRITNEY Infusion Azithromycin 500 mg/ Sodium 250 mls @ 125 mls/hr 02/05/21 12:00 02/09/21 11:59 Chloride IV 125 mls/hr Q24H BRITNEY Administration Melatonin 3 mg 02/04/21 17:25 02/05/21 20:13 Melatonin 3 Mg Tablet PO 3 mg BEDTIME PRN Administration Insomnia Ondansetron HCl 4 mg 02/04/21 17:25 02/06/21 18:38 Ondansetron Hcl 4 Mg/2 Ml Vial IVPUSH 4 mg Q8H PRN Administration Nausea and Vomiting Pharmacy Consult 1 each 02/04/21 18:35 Consult Rx Perform Med Rec MISCELLANE ONCE PRN Consult order Prednisone 20 mg 02/08/21 09:00 02/09/21 09:39 Prednisone 20 Mg Tablet PO 20 mg DAILY BRITNEY Administration Sodium Chloride 3 ml 02/05/21 00:00 02/09/21 09:40 0.9 % Sodium Chloride Flush 3 Ml Syringe IVFLUSH 3 ml QSHIFT BRITNEY Administration Labs CBC & Chem 7: 02/09/21 04:34 02/09/21 04:34 Labs: Laboratory Results - last 24 hr 02/09/21 02/09/21 04:34 04:34 MCV 83.1 MCH 24.9 L MCHC 30.0 L RDW 15.6 Plt Count 215 MPV 10.3 Absolute Nucleated RBC 0.020 H Nucleated RBC % (auto) 0.3 H Anion Gap 13 Estim Creat Clear Calc 60.2 Estimated GFR > 60 Random Glucose 127 H Calcium 8.5 Assessment and Plan (1) Pulmonary embolism: Status: Acute (2) NSTEMI (non-ST elevated myocardial infarction): Status: Acute (3) Laceration of lip: Status: Acute Assessment and Plan: 70-year-old female with a past medical history of vertigo, asthma-COPD overlap syndrome, pulmonary nodules, hypertension and history of breast cancer (invasive ductal carcinoma, MS BR grade 2, no lymphovascular invasion)? in 2019 s/p lumpectomy and deffered chemo--followed by Dr. Zayas came to ED follow here with dizziness, fall and found to have bilateral PE and pulmonary nodule, and probably penumonia. 1/Pulmonary embolism--likely related to malignancy -continue Anticoagulation with Lovenox, -Echo nor LV, RV -Hematology recommmend anticoagulation with Lovenox for now 2/PNA--Ceftriaxone, Azithro D5 3/ Pulmonary nodules--likely mets, may need further work later 4/ Fall/dizziness, no syncope--tele monitor, no arythmia 5/ Anemia--Chronic likely from chronic disease, follow cbc closely while on heparin. hematolgy recomended outpatient Gi workup . 6/COPD/Asthma-Bronchodilators, bronchodilators, add steroid for mild exacerbation 7/HTN--BP within normal, hold meds f(Norvasc and Ibersartant) 8/Elevated troponin, likely type 2 [place] from PE echocardiogram shows normal LVEF, 60-65%, no wall motion abnormalities. Cardiology advises no further work up 9/ H/o of CA, hold Tamoxifen per oncology 10/GERD--Omeprazole 11/HLD--Lipitor 12/Depression --Fluoxetin 13/AShtma bronchodilators and steroid PT recommending home with home PT, check home O2 need Quality Stroke Does the patient have a stroke diagnosis?: No VTE Prior VTE?: No VTE Risk Level:: Medical - moderate - high VTE Device Contraindication: N/A - Device Ordered VTE Drug Contraindication: N/A - Med Ordered
[2021-02-09] MEDS: Acetaminophen 325 MG TABLET 650 MG PO (14:30)
--- NOTE | 2021-02-09 15:01 | MHC.CM.PN ---
per multi dis rounds pt will go home with hvns when dcd
[2021-02-09] MEDS: cefTRIAXone sodium 1 GM in 0.9 % Sodium Chloride 50 ML IV (17:20)
[2021-02-10] VITALS (9 sets, daily range): BP systolic 133–163; BP diastolic 66–78; PULSE 89–104; RESP 18–20; TEMP 36.1–37.2; O2SAT 90–97
[2021-02-10] MEDS: Enoxaparin Sodium 80 MG/0.8 ML SYRINGE 65 MG SUBCUT ×3 (00:07→23:15)
[2021-02-10] MEDS: 0.9 % Sodium Chloride Flush 3 ML SYRINGE IVFLUSH ×4 (00:09→23:19)
[2021-02-10] MEDS: Albuterol/Iprat 2.5/0.5MG 3 ML AMPUL.NEB INHALE ×4 (07:34→20:04)
[2021-02-10] MEDS: Ferrous Sulfate 324 MG TABLET.DR PO ×2 (08:38→16:15)
[2021-02-10] MEDS: predniSONE 20 MG TABLET PO (08:38)
[2021-02-10] MEDS: Azithromycin 500 MG in 0.9 % Sodium Chloride 250 ML 125 MG IV (12:05)
--- NOTE | 2021-02-10 16:14 | HO.PM.IMPN ---
Subjective Subjective Date of Service: 02/10/21 Interval History: Seen in f/u for PE, PNA, short of breath, O2 94, off oxygen Review of Systems Gen: no fever Resp: SOB CV: no chest, no MOSLEY, no leg edema GI: No n/v, no abd pain Neuro: No confusion Physical Exam Vital Signs: Vital Signs: Last Vital Signs Temp 98.9 F 02/10/21 15:14 Pulse 90 02/10/21 15:39 Resp 18 02/10/21 15:14 BP 138/68 02/10/21 15:14 Pulse Ox 95 02/10/21 15:14 Oxygen Flow Rate 4 02/04/21 10:50 Body Mass Index 23.6 Const: Other: General: AO X 3, no acute distress HEENT--laceration of lips with assoiated bruse up to chin Resp:? CTA bilateral CVS: S1,S2,RRR GI: +BS, NT, no distention Skin: No rash Neuro:? motor grossly intact Psych: appropriate affect Objective Data Current Medications Generic Name Dose Route Start Last Admin Trade Name Faiza PRN Reason Stop Dose Admin Acetaminophen 650 mg 02/04/21 17:25 02/09/21 14:30 Acetaminophen 325 Mg Tablet PO 650 mg Q6H PRN Administration Pain, Mild (Pain Scale 1-3) Albuterol/Ipratropium 3 ml 02/05/21 12:00 02/10/21 15:39 Albuterol/Iprat 2.5/0.5mg 3 Ml Ampul.Neb INHALE 3 ml RQ4H WHILE AWAKE BRITNEY Administration Albuterol/Ipratropium 3 ml 02/05/21 10:28 02/09/21 04:17 Albuterol/Iprat 2.5/0.5mg 3 Ml Ampul.Neb INHALE 3 ml Q2H PRN Administration Shortness of Breath Docusate Sodium 100 mg 02/04/21 17:25 Docusate Sodium 100 Mg Capsule PO DAILY PRN Constipation Enoxaparin Sodium 65 mg 02/07/21 12:00 02/10/21 12:05 Enoxaparin Sodium 80 Mg/0.8 Ml Syringe SUBCUT 65 mg Q12H BRITNEY Administration Ferrous Sulfate 324 mg 02/05/21 17:00 02/10/21 08:38 Ferrous Sulfate 324 Mg Tablet. PO 324 mg BIDWM BRITNEY Administration Ceftriaxone Sodium 1 gm/ 50 mls @ 100 mls/hr 02/05/21 18:00 02/09/21 18:06 Sodium Chloride IV Infused Q24H BRITNEY Infusion Azithromycin 500 mg/ Sodium 250 mls @ 125 mls/hr 02/05/21 12:00 02/10/21 14:45 Chloride IV Infused Q24H BRITNEY Infusion Melatonin 3 mg 02/04/21 17:25 02/05/21 20:13 Melatonin 3 Mg Tablet PO 3 mg BEDTIME PRN Administration Insomnia Ondansetron HCl 4 mg 02/04/21 17:25 02/06/21 18:38 Ondansetron Hcl 4 Mg/2 Ml Vial IVPUSH 4 mg Q8H PRN Administration Nausea and Vomiting Pharmacy Consult 1 each 02/04/21 18:35 Consult Rx Perform Med Rec MISCELLANE ONCE PRN Consult order Prednisone 20 mg 02/08/21 09:00 02/10/21 08:38 Prednisone 20 Mg Tablet PO 20 mg DAILY BRITNEY Administration Sodium Chloride 3 ml 02/05/21 00:00 02/10/21 08:38 0.9 % Sodium Chloride Flush 3 Ml Syringe IVFLUSH 3 ml QSHIFT BRITNEY Administration Labs CBC & Chem 7: 02/09/21 04:34 02/09/21 04:34 Microbiology Microbiology Results: Microbiology 02/04/21 17:16 Blood Culture - Final Blood - Venous No growth after 5 days. 02/04/21 17:07 Blood Culture - Final Blood - Venous No growth after 5 days. Assessment and Plan (1) Pulmonary embolism: Status: Acute Assessment and Plan: 70-year-old female with a past medical history of vertigo, asthma-COPD overlap syndrome, pulmonary nodules, hypertension and history of breast cancer (invasive ductal carcinoma, MS BR grade 2, no lymphovascular invasion)? in 2019 s/p lumpectomy and deffered chemo--followed by Dr. Zayas came to ED follow here with dizziness, fall and found to have bilateral PE and pulmonary nodule, and probably penumonia. 1/Pulmonary embolism--likely related to malignancy -continue Anticoagulation with Lovenox, -Echo nor LV, RV -Hematology recommmend anticoagulation with Lovenox for now, family will be able administer lovenox at home 2/PNA--Ceftriaxone, Azithro D6, 3/ Pulmonary nodules--likely mets, may need further work later 4/ Fall/dizziness, no syncope--tele monitor, no arythmia 5/ Anemia--Chronic likely from chronic disease, follow cbc closely while on heparin. hematolgy recomended outpatient Gi workup . 6/COPD/Asthma-Bronchodilators, bronchodilators, add steroid for mild exacerbation 7/HTN--BP within normal, hold meds f(Norvasc and Ibersartant) 8/Elevated troponin, likely type 2 [place] from PE echocardiogram shows normal LVEF, 60-65%, no wall motion abnormalities. Cardiology advises no further work up 9/ H/o of CA, hold Tamoxifen per oncology 10/GERD--Omeprazole 11/HLD--Lipitor 12/Depression --Fluoxetine 13/AShtma bronchodilators and steroid Home tomorrow Quality Stroke Does the patient have a stroke diagnosis?: No VTE Prior VTE?: No VTE Risk Level:: Medical - moderate - high VTE Device Contraindication: N/A - Device Ordered VTE Drug Contraindication: N/A - Med Ordered
--- NOTE | 2021-02-10 16:21 | PC.NURSE ---
This RN educated pt daughter on Lovenox administration. Pt daughter reports she feels comfortable and knowledgeable to administer Lovenox to pt at home. Pt daughter to administer tomorrow mornings Lovenox dose before d/c home.
[2021-02-10] MEDS: cefTRIAXone sodium 1 GM in 0.9 % Sodium Chloride 50 ML IV (18:10)
[2021-02-11] VITALS: BP 147/64; PULSE 95; RESP 18; TEMP 36.8; O2SAT 92
[2021-02-11 03:35] VITALS: BP 148/66; PULSE 98; RESP 18; TEMP 36.6; O2SAT 93
[2021-02-11 07:23] VITALS: BP 144/69; PULSE 83; RESP 18; TEMP 36.4; O2SAT 92
[2021-02-11 07:26] VITALS: PULSE 98; O2SAT 92
[2021-02-11] MEDS: Albuterol/Iprat 2.5/0.5MG 3 ML AMPUL.NEB INHALE ×2 (07:26→11:32)
[2021-02-11] MEDS: Ferrous Sulfate 324 MG TABLET.DR PO (09:23)
[2021-02-11] MEDS: predniSONE 20 MG TABLET PO (09:23)
[2021-02-11] MEDS: 0.9 % Sodium Chloride Flush 3 ML SYRINGE IVFLUSH (09:24)
[2021-02-11] MEDS: Enoxaparin Sodium 80 MG/0.8 ML SYRINGE 65 MG SUBCUT (09:59)
[2021-02-11 11:32] VITALS: PULSE 90; O2SAT 92
[2021-02-11 11:45] VITALS: BP 143/61; PULSE 93; RESP 18; TEMP 36.7; O2SAT 97
--- NOTE | 2021-02-11 12:49 | MHC.CM.PN ---
per pt to be dcd today hvns notified of dc ,additionally per family requet asjked during roun ds for a script for a commode and a bath seat
[2021-02-11] MEDS: Azithromycin 500 MG in 0.9 % Sodium Chloride 250 ML 125 MG IV (12:56)
--- NOTE | 2021-02-11 14:00 | P.DS_ITS ---
DS: Providers Provider Date of Service: 02/11/21 Date of admission: 02/04/21 17:25 Primary care physician: Vivienne Marques MD Consults: 02/04/21 17:21 Consult to Hematology / Oncology [place]ine [place] [facility] [place] Reason for consultation: Ricardo PE 02/05/21 10:26 Consult to Cardiology Routine Consulting Provider: Gibson Reeves Reason for consultation: nstemi Has provider been notified: No DS: Diagnosis Discharge Diagnosis (1) Pulmonary embolism: Status: Acute DS: Summary Hospital Course Hospital Course: Chief Complaint: Dizziness and fall 70-year-old female with a past medical history of vertigo, asthma-COPD overlap syndrome, pulmonary nodules, hypertension and history of breast cancer (invasive ductal carcinoma, MS BR grade 2, no lymphovascular invasion)? in 2019 s/p lumpectomy and deffered chemo--followed by Dr. Zayas came to ED follow a dizzy epsisode that sarted as? vertigo while she was sitting on the toilet, her daughter was warning her not to stand but was too late. She stood up fell forward, hiting her lips against refrigerator--No LOC, lost a tooth, and sustaining laceration to both lips. The dizziness was not any different from her usual vertigo, although alos lately has been having shortness of breath according to daughter at [facility]. No chest pain. She was hemodynamically stable.? Work with CT of chest has revealed bilateral pulmonary embolism and possible pneumonia.? She is started on IV heparin. Hospital course: 1/Pulmonary embolism bilateral lungs with hypoxia this likely from underlying malignancy. Initially we treated with IV heparin and later switched to Lovenox on cardiology's advise. She had an echo show normal LV and RV. Her oncologist DR. Zayas recommends Lovenox for now and could be considered for NOAC at later time. Family has been educated on how to give the shots, daughter is [employer] and is comfortable doing the shots 2/PNA--Cliically resolved. Treated with Ceftriaxone and Azithro for 7 days now, afebrile, hypoxia resolved. 3/ Pulmonary nodules--likely mets, may need further work later 4/ Fall/dizziness, no syncope--no arrythmia. 5/ Anemia--Chronic likely from chronic disease, No drastic shift with heparin hematolgy recomended outpatient Gi workup . 6/COPD/Asthma-Bronchodilators, bronchodilators, add steroid for mild exacerbation.. doing well and no incation for more steroid 7/HTN--to resume Norvasc and Ibersartan 8/Elevated troponin, likely type 2 AR from PE echocardiogram shows normal LVEF, 60-65%, no wall motion abnormalities.? Cardiology advises no further work up 9/ H/o of breast cancer hold Tamoxifen per oncology 10/GERD--Omeprazole 11/HLD--Lipitor 12/Depression --Fluoxetine home with VNA today Final diagnosis: Bilateral Pulmonary embolism Pneumonia Type 2 AR HTN Ashtma/copd exacerbation Time Spent with Patient Time attestation: Total time spent providing and/or coordinating discharge ser vices: Discharge coordination time: Greater than 30 minutes Quality: Stroke Does the patient have a stroke diagnosis?: No Physical Exam Vital Signs: Vital Signs: Last Vital Signs Temp 98.0 F 02/11/21 11:45 Pulse 93 02/11/21 11:45 Resp 18 02/11/21 11:45 BP 143/61 H 02/11/21 11:45 Pulse Ox 97 02/11/21 11:45 Oxygen Flow Rate 4 02/04/21 10:50 Body Mass Index 23.6 Discharge Plan Discharge Anticipated Discharge Date/Time: 02/11/21 13:53 Patient Disposition: Home Health Service Discharge Diagnosis: Bilateral PEs Referrals: juan luis visiting nurse [Other] - 1 Week Vivienne Marques MD [Primary Care Provider] - 1 Week Discharge Medications: New (DME) bedside commode Kit See Rx Instructions .Route Qty: 1 RF: 0 (DME) Shower Chair Misc See Rx Instructions .Route Qty: 1 RF: 0 Continued omeprazole 40 mg capsule,delayed release(DR/EC) 40 mg PO QAM RF: 0 multivitamin Tablet 1 tab PO DAILY RF: 0 ibuprofen 800 mg tablet 800 mg PO DAILY RF: 0 melatonin 5 mg tablet 5 mg PO BEDTIME PRN (Reason: Insomnia) RF: 0 irbesartan 300 mg tablet 300 mg PO QAM RF: 0 montelukast 10 mg tablet 10 mg PO DAILY RF: 0 amlodipine 2.5 mg tablet 2.5 mg PO DAILY RF: 0 clonazepam 0.5 mg tablet 0.5 mg PO BEDTIME RF: 0 albuterol sulfate 2.5 mg /3 mL (0.083 %) solution for nebulization 2.5 mg inhalation Q4H RF: 0 cholecalciferol (vitamin D3) 25 mcg (1,000 unit) capsule 25 mcg PO DAILY RF: 0 fluoxetine 20 mg capsule 20 mg PO DAILY RF: 0 atorvastatin 40 mg tablet 40 mg PO DAILY RF: 0 Trelegy Ellipta 200-62.5-25 mcg blister with device 1 inh inhalation DAILY 30 Days Qty: 1 RF: 6 ipratropium-albuterol 0.5 mg-3 mg(2.5 mg base)/3 mL solution for nebulization 3 ml inhalation Q4H PRN (Reason: wheezing) 30 Days Qty: 270 RF: 6 Discontinued tamoxifen 20 mg tablet 20 mg PO BEDTIME RF: 0 No Action Xarelto 20 mg Tablet 20 mg PO DAILY Qty: 60 RF: 3 letrozole 2.5 mg Tablet 2.5 mg PO DAILY Qty: 60 RF: 3 theophylline 400 mg tablet extended release 24 hr 400 mg PO DAILY 30 Days Qty: 30 RF: 3 Discharge Orders: Discharge Order (Routine); Ordered 02/11/21 Ordered By: Duke Webber Diet: advance to usual diet Activity on Discharge: As tolerated Stand Alone Forms: Patient Portal Discharge page Care Plan Goals: prevent rehospitalization f Health Concerns: Pulmonary embolism Plan of Treatment: Take Lovenox shots as directed and follow up with your Doctor in a week, call for appointment Assessment: as above Discharge Date/Time: 02/11/21 15:00
--- NOTE | 2021-02-11 14:15 | P.F2F_ITS ---
Service Date Service Date: 02/11/21 Encounter Date of encounter: 02/11/21 Reasons for Services Signs and symptoms assessed: shortness of breath due to pulmonary embolism Homebound: Leaving the home is medically contraindicated at this time without the asist of a device and/or another person due th the listed conditions above and below. Homebound supporting statement: homebound due to pulmonary embolism with shortness of breath and therefore needs the assitance of another person Certification: Based on the above findings, I certify that this patient is confined to the home and needs intermittent senior living care, physical therapy and/or speech therapy, or continues to need occupational therapy. The patient is under my care, and I have initiated the establishment of the plan of care. The patient will be followed by a physician who will periodically review the plan of care.
== END 2021-02-11 15:00 | disposition home health service (06) | DRG 987 ==
LOC: HO.ED 16:49 → HO.EDOVER 19:14 → HO.IMC 02-05 06:52
PROVIDERS: Internal Medicine; Physician Assistant Medical; Admitting Provider Internal Medicine; Emergency Provider Emergency Medicine; PCP Family Medicine; Visit Provider Internal Medicine
DX: I26.99 Other pulmonary embolism without acute cor pulmonale (principal); I21.A1 Myocardial infarction type 2; J44.1 Chronic obstructive pulmonary disease with (acute) exacerbation; J45.901 Unspecified asthma with (acute) exacerbation; C78.02 Secondary malignant neoplasm of left lung; S01.511A Laceration without foreign body of lip, initial encounter; W18.30XA Fall on same level, unspecified, initial encounter; Y93.9 Activity, unspecified; C50.911 Malignant neoplasm of unspecified site of right female breast; Y92.002 Bathroom of unspecified non-institutional (private) residence as the place of occurrence of the external cause; Y99.9 Unspecified external cause status; Z20.822 Contact with and (suspected) exposure to COVID-19; K21.9 Gastro-esophageal reflux disease without esophagitis; E78.5 Hyperlipidemia, unspecified; I11.0 Hypertensive heart disease with heart failure; F32.9 Major depressive disorder, single episode, unspecified; Z87.891 Personal history of nicotine dependence; D63.8 Anemia in other chronic diseases classified elsewhere; Z88.0 Allergy status to penicillin; Z79.1 Long term (current) use of non-steroidal anti-inflammatories (NSAID); Z79.52 Long term (current) use of systemic steroids; Z79.810 Long term (current) use of selective estrogen receptor modulators (SERMs); Z79.899 Other long term (current) drug therapy
CPT/HCPCS: 36415; 70450; 70486; 71275; 72125; 80048; 80053; 82550; 82607; 82746; 82803; 83540; 83605; 83735; 83880; 84484; 85014; 85018; 85025; 85027; 85610; 85730; 86300; 87040; 87635; 93005; 93306; 93970; 94640; 97162; 99285; J0456; J0696; J1650; J2270; J2405; Q9967

== ENCOUNTER 2021-02-25 10:47 | Outpatient (REF) | payer MEDICARE, SELFPAY ==
--- NOTE | 2021-02-25 12:57 | PFT_ITS ---
INDICATION: Asthma. Pretest, the patient was recently hospitalized, multiple strokes, multiple pulmonary emboli, and she does have some difficulties performing the study. SPIROMETRY: The FEV1 to FVC of 52% with an FEV1 of 0.94 L, which is 46% predicted, an FVC of 1.8 L, which is 68% predicted. No significant response to bronchodilators noted. She could not perform lung volumes. We only have an expiratory reserve volume of 85% predicted. The patient could not perform diffusion capacity. She is saturating 97% on room air. COMPARISONS: None available. INTERPRETATION: There is an obstructive ventilatory defect consistent with severe COPD. No significant response to bronchodilators noted. Severe decrease in maximum voluntary ventilation secondary to deconditioning and also her recent strokes. I again limited study since we could not achieve adequate testing for lung volumes and diffusion capacity. Clinical correlation warranted. MD DANIELLE Alford/ELIJAH / [id number]
== END 2021-02-25 10:48 | disposition home or self-care (01) ==
LOC: HO.RESP 10:47
PROVIDERS: PCP Family Medicine; Visit Provider Internal Medicine Pulmonary Disease
DX: J44.9 Chronic obstructive pulmonary disease, unspecified (principal)
CPT/HCPCS: 94060

== ENCOUNTER → 2021-03-11 12:56 | Outpatient (BNVA) | payer MEDICARE, SELFPAY | PROVIDERS: PCP Family Medicine; Referring Provider Family Medicine; Visit Provider Nurse Practitioner Family | DX: I21.4 Non-ST elevation (NSTEMI) myocardial infarction (principal); I26.99 Other pulmonary embolism without acute cor pulmonale; R06.00 Dyspnea, unspecified | CPT/HCPCS: 99212 ==

== ENCOUNTER → 2021-03-17 10:49 | Outpatient (BNVA) | payer MEDICARE, SELFPAY | PROVIDERS: PCP Family Medicine; Visit Provider Internal Medicine Pulmonary Disease | DX: R91.8 Other nonspecific abnormal finding of lung field (principal); J44.9 Chronic obstructive pulmonary disease, unspecified | CPT/HCPCS: 99212 ==

== ENCOUNTER 2021-03-20 10:51 | Outpatient (REF) | payer MEDICARE, SELFPAY | END 2021-03-20 10:52 | disposition home or self-care (01) | LOC: HO.LAB 10:51 | PROVIDERS: PCP Family Medicine; Visit Provider Internal Medicine | DX: Z20.822 Contact with and (suspected) exposure to COVID-19 (principal) | CPT/HCPCS: C9803; U0003; U0005 ==

== ENCOUNTER 2021-03-27 08:10 | Outpatient (REF) | payer MEDICARE, SELFPAY ==
--- NOTE | ~2021-03-27 | MM_ITS ---
EXAMINATION: MM DIAGNOSTIC DIGITAL BREAST TOMOSYNTHESIS, BILATERAL CLINICAL INFORMATION: Due for yearly. History invasive ductal cancer right breast, status post lumpectomy 05/10/2019. COMPARISON: Mammography: 04/03/2020, 05/10/2019, 04/26/2019, 04/13/2019, 08/29/2017 TECHNIQUE: Digital breast tomosynthesis is performed in both the craniocaudal and mediolateral oblique views along with computer-aided detection (CAD). Synthesized 2D images are generated from the tomosynthesis. Additional magnification right CC and magnification right ML views are obtained. FINDINGS: There are scattered areas of fibroglandular density (ACR BI-RADS breast composition Category b). Right breast post therapy changes are similar to prior exam. There is mild reduced breast size and stable scarring. Neither breast shows interval mass or architectural abnormality or abnormal calcifications. Results are provided to the patient at time of visit by the technologist. MM/MM tomosynthesis diagnostic BI IMPRESSION: No mammographic evidence of malignancy. Post therapy changes right breast ASSESSMENT: BI-RADS 2: Benign RECOMMENDATION: Annual bilateral mammography. This patient's information was entered into a reminder system with a target due date for their next mammogram.
== END 2021-03-27 08:11 | disposition home or self-care (01) ==
LOC: HO.MAMMO 08:10
PROVIDERS: Visit Provider Radiology Radiation Oncology
DX: C50.411 Malignant neoplasm of upper-outer quadrant of right female breast (principal)
CPT/HCPCS: 77062; 77066

== ENCOUNTER 2021-03-27 09:44 | Outpatient (REF) | payer MEDICARE, SELFPAY ==
--- NOTE | ~2021-03-27 | CT_ITS ---
EXAMINATION: CT CHEST WITHOUT CONTRAST CLINICAL INFORMATION: Follow-up pulmonary nodules COMPARISON: Previous chest CTA January 2021 and chest x-ray December 2020 TECHNIQUE: Multidetector volumetric CT imaging of the chest was done. Axial MIP volume rendering provided. Sagittal and coronal reformatted images were obtained. This CT examination was performed using dose optimization techniques as appropriate, variously including the following: *Automated exposure control *Adjustment of mA and/or kV according to patient size (this includes techniques or standardized protocols for targeted exams where dose is matched to indication/reason for exam; i.e. extremities or head) *Use of iterative reconstruction technique DLP: 197 mGy-cm FINDINGS: LUNGS: Evaluation of the lungs is limited due to artifact from respiratory motion. There is chronic volume loss to the right upper lobe and atelectasis and bronchiectasis that appears unchanged. There are increased peripheral markings in the right middle lobe likely related to chest wall radiation. There are multiple remaining and nodular opacities in the left upper lobe. The 3 largest are measured are measured. There is a 5 x 10 mm peripheral or subpleural left upper lobe nodule adjacent to the fissure axial image 69 series 7. There is an irregularly-shaped central left upper lobe nodule measuring 7 x 8 mm in AP and longitudinal dimension sagittal reconstructed image 22. There is a 5 x 7 mm central left upper lobe nodule coronal reconstructed image 36 and axial image 106 series 7. There is several clustered peripheral or subpleural bilateral lower lobe nodules in the bilateral posterior costophrenic sulci. These appear decreased in size and attenuation from January 2021. Largest nodule measures 5 mm in the right lower lobe axial image 351 series 7. MEDIASTINUM: There is a 1 cm nodule in the posterior inferior left lobe of the thyroid gland that is unchanged. There is shotty mediastinal lymphadenopathy that appears unchanged. No enlarged lymph nodes are seen. The heart does not appear enlarged. There is mild coronary artery calcification. There is no pericardial effusion thoracic aorta is tortuous. There is a large esophageal hernia. PLEURA: There is no pleural effusion. No pleural mass or thickening. AXILLA: No lymphadenopathy. UPPER ABDOMEN: Unremarkable. OSSEOUS STRUCTURES: There are degenerative changes of the spine. CT/CT chest wo con IMPRESSION: Emphysema. Stable right upper lobe volume loss and atelectasis and bronchiectasis. Stable probable post radiation change to the right middle lobe. Several residual left upper lobe nodules. Bilateral lower lobe nodules appear improved. Esophageal hernia. Mild coronary artery calcification.
== END 2021-03-27 09:45 | disposition home or self-care (01) ==
LOC: HO.CT 09:44
PROVIDERS: Visit Provider Internal Medicine Pulmonary Disease
DX: R91.8 Other nonspecific abnormal finding of lung field (principal)
CPT/HCPCS: 71250

== ENCOUNTER → 2021-04-01 10:07 | Outpatient (REF) | payer MEDICARE, SELFPAY ==
--- NOTE | ~2021-04-01 | NM_ITS ---
Lexiscan Myocardial perfusion study Indication: Non-ST elevation myocardial infarction Technique: The patient was brought in for a Lexiscan perfusion study on 04/01/2021 and was injected 0.4 mg of Lexiscan intravenously. Within a minute of this injection 25 mCi of sestamibi was given intravenously. Images were obtained using the SPECT gamma camera interlaced with the gating device. Images were obtained in supine position. Resting perfusion study was performed on 04/02/2021. Patient was administered 25 mCi of sestamibi intravenously at rest. Images were then obtained in supine position. Total DLP 87mGy-cm. Images were processed with the software and compared side to side in short axis, horizontal long axis and vertical long axis views. Findings: Raw acquisition was reviewed. The stress perfusion study shows mildly reduced tracer uptake in the mid anterior septum that might be artifactual. With CT attenuation correction, there is reduced uptake in the distal part of septum, inferior wall, anterior wall, lateral wall and mid part of anterior septum that could be artifactual. The gated study shows normal LV systolic function with calculated LVEF of 56%. LV cavity is normal in size. The gated study shows normal wall thickening and contraction of segments. Resting study shows no significant perfusion abnormality. Gating at rest reveals normal wall motion with ejection fraction at 41%. The findings are consistent with no definite reversible or fixed defects. NM/NM violetta perf SPECT rest & str Impression: 1. Myocardial perfusion imaging study shows likely normal myocardial perfusion. 2. Gated LVEF is 56% during stress and 41% during rest; visually, LVEF appears normal during stress and rest. Correlate with echocardiogram. 3. Transient ischemic dilatation not present. EKG component of the test reported separately.
--- NOTE | 2021-04-01 10:10 | CA_ITS ---
Acquisition Time: 2021-04-01 10:08:00 Total Exercise Time: 00:02:00 Test Indications: Dyspnea Medications: AMLODIPINE ATORVASTATIN CLONAZAPAM ENOXAPARIN FLUOXETINE TRELOGY ELLIPTA IRBASRTAN OMEPRAZOLE SINGULAIR Protocol: LEXISCAN Max HR: 113 BPM 76% of Pred: 148 BPM Max BP: 118/072 mmHG Max Work Load: 1.0 METS Pharmacological stress test with Lexiscan injection, while sitting and kicking her legs, without anginal symptoms, with isolated PVCs in recovery, with normotensive response to injection, with nondiagnostic EKG for ischemia. In recovery she was given Aminophylline 75mg IVP to reverse Lexiscan. Nuclear images pending. Test reviewed with Dr De La Fuente. Referred By: Ramona Gaytan Overread By: RAMONA GAYTAN
== END ==
LOC: HO.CARD 10:07
PROVIDERS: Visit Provider Nurse Practitioner Family
DX: I21.4 Non-ST elevation (NSTEMI) myocardial infarction (principal); I26.99 Other pulmonary embolism without acute cor pulmonale
CPT/HCPCS: 78452; 93017; A9500; J0280; J2785

== ENCOUNTER 2021-04-17 09:49 | Outpatient (REF) | payer MEDICARE, SELFPAY ==
--- NOTE | ~2021-04-17 | MM_ITS ---
EXAMINATION: BONE DENSITOMETRY CLINICAL INDICATION: Osteoporosis. COMPARISON: Previous BD dated 06/28/2019 and baseline BD dated 01/22/2014. TECHNIQUE: Using a [employer] DXA System (software version: 13.1) manufactured by [employer], dual-energy x-ray absorptiometry was performed of the lumbar spine and left hip. The images are of good technical quality. Summary results are attached. FINDINGS: AP SPINE L1-L4: Current: BMD 0.907 g/cm2, Z-score -0.7, T-score -2.3, osteopenia, 3.9% increase from previous, 2.1% increase from baseline (<5% change is not significant). Prior: BMD 0.873 g/cm2. Baseline: BMD 0.888 g/cm2. LEFT FEMUR, NECK: Current: BMD 0.757 g/cm2, Z-score -0.3, T-score -2.0, osteopenia. Prior: BMD 0.781 g/cm2. Baseline: BMD 0.828 g/cm2. LEFT FEMUR, TOTAL: Current: BMD 0.806 g/cm2, Z-score -0.1, T-score -1.6, osteopenia, 4.0% decrease from previous, 2.2% decrease from baseline (<5% change is not significant). Prior: BMD 0.840 g/cm2. Baseline: BMD 0.824 g/cm2. IDENTIFIED RISK FACTORS: Osteoporosis, menopause. HISTORY OF FRACTURE: None listed. MEDICATIONS: Calcium supplements or multivitamin, vitamin D. MM/XR DEXA axial skeleton IMPRESSION: 1. DIAGNOSIS: Osteopenia based on the lowest T-score value of -2.3 in the lumbar spine applying World Health Organization criteria. 2. 10-YEAR FRACTURE RISK PREDICTION, FRAX: Major osteoporotic fracture (clinical spine, forearm, hip or shoulder) 7.2%. Hip fracture 1.6%. 3. Treatment Recommendations: NOF guidelines recommend consideration for treatment in postmenopausal women and men age 50 and older presenting with the following: -A hip or vertebral (clinical or morphometric) fracture. -T-score less than or equal to -2.5 at the femoral neck or spine after appropriate evaluation to exclude secondary causes. -Low bone mass at the hip or spine and a 10-year fracture probability by FRAX of greater than or equal to 3% for hip fracture or greater than or equal to 20% for major osteoporotic fracture based on the [place] adapted WHO algorithm. 4. Other Recommendations: All treatment decisions require clinical judgment and consideration of individual patient factors, including patient preferences, comorbidities, previous drug use, risk factors not captured in the FRAX model (e.g. frailty, falls, vitamin D deficiency, increased bone turnover, interval significant decline in bone density) and possible under or overestimation of fracture risk by FRAX. Additional medical evaluation for secondary cause of low bone mineral density may be appropriate. FUTURE SCAN RECOMMENDATION: People with diagnosed cases of osteoporosis or at high risk for fracture should have regular bone mineral density tests. For patients eligible for Medicare, routine testing is allowed once every 2 years. The testing frequency can be increased to one year for patients who have rapidly progressing disease, those who are receiving or discontinuing medical therapy to restore bone mass, or have additional risk factors.
== END 2021-04-17 09:50 | disposition home or self-care (01) ==
LOC: HO.MAMMO 09:49
PROVIDERS: PCP Family Medicine; Visit Provider Internal Medicine
DX: Z13.820 Encounter for screening for osteoporosis (principal); M81.0 Age-related osteoporosis without current pathological fracture; M85.80 Other specified disorders of bone density and structure, unspecified site; Z78.0 Asymptomatic menopausal state; Z79.899 Other long term (current) drug therapy
CPT/HCPCS: 77080

== ENCOUNTER 2021-04-21 17:39 | Emergency (ER) | payer MEDICARE, SELFPAY ==
--- NOTE | 2021-04-21 | ECG_ITS ---
Test Reason : CHEST PAIN Blood Pressure : / mmHG Vent. Rate : 109 BPM Atrial Rate : 109 BPM P-R Int : 120 ms QRS Dur : 078 ms QT Int : 338 ms P-R-T Axes : 052 067 055 degrees QTc Int : 455 ms Sinus tachycardia with Premature atrial complexes with Aberrant conduction Otherwise normal ECG When compared with ECG of 04-FEB-2021 16:19, Aberrant conduction is now Present QRS duration has decreased Heart rate has increased Referred By: Generic ED Physician Electronically Signed By:ROXANNE KOHLI MD
--- NOTE | ~2021-04-21 | XR_ITS ---
EXAMINATION: XR CHEST CLINICAL INFORMATION: Chest pain COMPARISON: Chest CT on 03/27/2021 TECHNIQUE: 2 views of the chest were obtained. FINDINGS: No significant acute abnormality is noted involving the heart, lungs, mediastinum, bony thorax or soft tissues. XR/XR chest 2V IMPRESSION: No acute disease.
[2021-04-21 17:54] VITALS: BP 122/82; PULSE 99; RESP 20; TEMP 36.2; O2SAT 98; BMI 28.3
[2021-04-21 17:58] LABS: MANUAL DIFF FLAG NO
[2021-04-21 18:02] LABS: Basophils Absolute Auto 0.1 X10*3/uL (0.0-0.2); Basophils Percent Auto 1.4 % (0-2); Eosinophils Absolute Auto 1.1 X10*3/uL (0.0-0.4); Eosinophils Percent Auto 12.6 % (0-4); Hematocrit 28.6 % (37-47); Hemoglobin 8.4 g/dl (12.0-16.0); Imm Gran Abs Auto 0.02 X10*3/uL (0.00-0.03); Imm Gran Pct Auto 0.2 % (0.0-0.4); Lymphocytes Percent Auto 22.3 % (20-40); Mean Corpuscular HGB Conc 29.4 g/dl (31.0-35.0); Mean Corpuscular Hemoglobin 22.3 pg (27.0-33.0); Mean Corpuscular Volume 75.9 fL (80-98); Mean Platelet Volume 9.3 fL (9.4-12.3); Monocytes Absolute Auto 0.7 X10*3/uL (0.1-1.2); Monocytes Percent Auto 7.9 % (2-11); Neutrophils Absolute Auto 4.9 X10*3/uL (2.0-8.3); Neutrophils Percent Auto 55.6 % (45-73); Platelet Count 468 X10*3/uL (160-400); Red Blood Count 3.77 X10*6/uL (4.20-5.50); Red Cell Distribution Width 16.2 % (11.0-16.0); White Blood Count 8.9 X10*3/uL (4.8-10.8)
[2021-04-21 18:18] LABS: Alanine Aminotransferase 9 U/L (0-31); Albumin Level 3.6 g/dL (3.5-5.0); Alkaline Phosphatase 54 U/L (39-117); Anion Gap 13 (12-20); Aspartate Amino Transferase 12 U/L (5-31); Bilirubin Direct < 0.2 mg/dL (0.0-0.5); Bilirubin Total < 0.2 mg/dL (0.0-1.0); Blood Urea Nitrogen 32 mg/dL (9-16); Calcium 9.3 mg/dL (8.4-10.2); Carbon Dioxide 19 mmol/L (22-29); Chloride 109 mmol/L (96-108); Creatinine Clr Calc Pharmacy 37.7; Estimated Glomerular Filt Rate 43; Glucose Random 148 mg/dL (60-115); Lipase 39 U/L (8-78); Potassium 4.3 mmol/L (3.3-5.1); Sodium 137 mmol/L (135-145); Total Protein 7.2 g/dL (6.5-8.0)
[2021-04-21 18:20] LABS: Troponin-I High Sensitivity 6.8 ng/L (<3.5-17.0)
== END 2021-04-21 21:00 | disposition left against medical advice (07) ==
PROVIDERS: Emergency Provider Emergency Medicine
DX: R07.9 Chest pain, unspecified (principal); R06.02 Shortness of breath; R51.9 Headache, unspecified; Z79.899 Other long term (current) drug therapy
CPT/HCPCS: 36415; 71046; 80048; 80076; 83690; 84484; 85025; 93005; 99283

== ENCOUNTER 2021-04-22 10:28 | Emergency (ER) | payer MEDICARE, SELFPAY ==
[2021-04-22 10:42] VITALS: BP 113/58; PULSE 96; RESP 18; TEMP 36.1; O2SAT 100; BMI 28.3
--- NOTE | 2021-04-22 13:55 | ECG_ITS ---
Test Reason : abdominal pain Blood Pressure : / mmHG Vent. Rate : 083 BPM Atrial Rate : 083 BPM P-R Int : 136 ms QRS Dur : 080 ms QT Int : 386 ms P-R-T Axes : 062 058 053 degrees QTc Int : 453 ms Normal sinus rhythm Normal ECG No previous ECGs available Referred By: Lou Cutler Electronically Signed By:ROXANNE KOHLI MD
[2021-04-22 13:58] VITALS: BP 133/57; PULSE 84; RESP 16; O2SAT 100
[2021-04-22 14:15] LABS: MANUAL DIFF FLAG NO
[2021-04-22 14:19] LABS: Basophils Absolute Auto 0.1 X10*3/uL (0.0-0.2); Basophils Percent Auto 1.1 % (0-2); Eosinophils Percent Auto 11.6 % (0-4); Hematocrit 27.7 % (37-47); Hemoglobin 8.2 g/dl (12.0-16.0); Imm Gran Abs Auto 0.02 X10*3/uL (0.00-0.03); Imm Gran Pct Auto 0.2 % (0.0-0.4); Lymphocytes Absolute Auto 1.9 X10*3/uL (1.2-4.9); Lymphocytes Percent Auto 23.3 % (20-40); Mean Corpuscular HGB Conc 29.6 g/dl (31.0-35.0); Mean Corpuscular Hemoglobin 22.4 pg (27.0-33.0); Mean Corpuscular Volume 75.7 fL (80-98); Mean Platelet Volume 8.9 fL (9.4-12.3); Monocytes Absolute Auto 0.6 X10*3/uL (0.1-1.2); Monocytes Percent Auto 7.6 % (2-11); Neutrophils Absolute Auto 4.6 X10*3/uL (2.0-8.3); Neutrophils Percent Auto 56.2 % (45-73); Platelet Count 399 X10*3/uL (160-400); Red Blood Count 3.66 X10*6/uL (4.20-5.50); Red Cell Distribution Width 16.3 % (11.0-16.0); White Blood Count 8.2 X10*3/uL (4.8-10.8)
--- NOTE | 2021-04-22 14:20 | ED.GENADULT ---
HPI - General Adult General Chief complaint: General Medical Stated complaint: Weakness/shaking Time Seen by Provider: 04/22/21 13:26 Source: patient Mode of arrival: ambulatory Limitations: no limitations History of Present Illness HPI narrative: 70-year-old female with a past medical history of pulmonary embolism on Xarelto, breast cancer here with complaints of 1 episode of dizziness with shortness of breath yesterday. Was waiting in the waiting room yesterday but left without being seen. Did have some labs drawn and a chest x-ray yesterday. Returns today because the daughter was concerned of this episode which occurred yesterday. Patient tells me she has had no additional episodes and she feels well. She denies any current dizziness, shortness of breath, cough, fevers, chills, chest pain, abdominal pain, vomiting or diarrhea. She has been compliant with her Xarelto as scheduled Related Data Home Medications Medication Instructions Recorded Confirmed albuterol sulfate 2.5 mg INHALATION Q4H 04/24/20 03/20/21 amlodipine 2.5 mg tablet 2.5 mg PO DAILY 04/24/20 03/20/21 atorvastatin 40 mg tablet 40 mg PO DAILY 04/24/20 03/20/21 cholecalciferol (vitamin D3) 25 25 mcg PO DAILY 04/24/20 03/20/21 mcg (1,000 unit) capsule clonazepam 0.5 mg tablet 0.5 mg PO BEDTIME 04/24/20 03/20/21 fluoxetine 20 mg capsule 20 mg PO DAILY 04/24/20 03/20/21 ibuprofen 800 mg tablet 800 mg PO DAILY 04/24/20 03/20/21 irbesartan 300 mg tablet 300 mg PO QAM 04/24/20 03/20/21 melatonin 5 mg tablet 5 mg PO BEDTIME PRN 04/24/20 03/20/21 montelukast 10 mg tablet 10 mg PO DAILY 04/24/20 03/20/21 multivitamin 1 tab PO DAILY 02/04/21 03/20/21 omeprazole 40 mg capsule,delayed 40 mg PO QAM 02/04/21 03/20/21 release Previous Rx's Medication Instructions Recorded fluticasone fur. 200 mcg-umeclid 1 inh INHALATION DAILY 30 Days #1 01/09/21 62.5 mcg-vilant 25 mcg ea inhalat.powder (Trelegy Ellipta) ipratropium 0.5 mg-albuterol 3 mg 3 ml INHALATION Q4H PRN 30 Days 01/09/21 (2.5 mg base)/3 mL nebulization #270 ml soln Shower Chair #1 ea 02/11/21 commode (bedside commode) #1 ea 02/11/21 theophylline 400 mg 400 mg PO DAILY 30 Days #30 tab 03/17/21 tablet,extended release 24 hr letrozole 2.5 mg tablet 2.5 mg PO DAILY #60 tab 03/20/21 rivaroxaban 20 mg tablet (Xarelto) 20 mg PO DAILY #60 tab 03/20/21 Allergies Allergy/AdvReac Type Severity Reaction Status Date / Time penicillin G [Penicillin G] Allergy Mild RASH Verified 03/20/21 09:23 potassium [POTASSIUM] Allergy Unknown PEDAL EDEMA Verified 03/20/21 09:23 Review of Systems Review of Systems: Yes all other systems are reviewed and are negative Constitutional: Constitutional: Reports no additional constitutional complaints, Denies body ache(s), Denies chills, Denies fever(s), Denies headache(s) and Denies weakness Eyes: Eyes: Reports no additional eye complaints and Denies change in vision ENT: Reports system reviewed and no additional complaints, except as documented, Reports dizziness, Denies headache(s), Denies nasal congestion, Denies nasal discharge and Denies neck pain Cardiovascular: Cardiovascular: Reports no additional cardiovascular complaints, Denies chest pain, Denies leg edema and Reports dyspnea Respiratory: Respiratory: Reports no additional respiratory complaints, Denies cough and Reports dyspnea Gastrointestinal: Gastrointestinal: Reports no additional gastrointestinal complaints, Denies abdominal pain, Denies diarrhea, Denies nausea and Denies vomiting Genitourinary: Genitourinary: Reports no additional female genitourinary complaints and Denies urinary incontinence Musculoskeletal: Musculoskeletal: Reports no additional musculoskeletal complaints, Denies back pain, Denies arthralgias, Denies joint swelling, Denies neck pain, Denies numbness and Denies tingling Integumentary/Breasts: Skin/Breast: Reports system reviewed and no additional complaints, except as docu and Denies rash Neurologic: Reports system reviewed and no additional complaints, except as documented, Denies Abnormal speech present, Reports dizziness, Denies headache(s), Denies numbness, Denies tingling and Denies weakness [facility] Past Medical History Attestation statement: The following information was validated with the patient. Source: old records reviewed and nursing notes reviewed Medical History Anemia of chronic disease Asthma-COPD overlap syndrome Depression History of breast cancer HLD (hyperlipidemia) Hypertension Pulmonary embolism Pulmonary nodules Smoker Surgical History History of bronchoscopy (~04/28/11) History of colonoscopy (~09/10/08) History of esophagogastroduodenoscopy (EGD) (~08/09/11) History of excision of mass (~06/01/19) History of lumpectomy of right breast (~05/10/19) History of right breast biopsy (~04/26/19) History of toe surgery Family History Family History Mother History of breast cancer Sister History of breast cancer History of colon polyps History of colitis History of colon cancer Maternal Aunt History of breast cancer Social History Social History Household Members: Children Housing: House Alcohol intake: former Patient Tobacco Use Status: Former Tobacco user Quit Date: 05/2020 Advance Directives: No Advance Directives Information Provided: No service: No Current occupational status: disabled Physical Exam Vital Signs: Vital Signs: Last Vital Signs Temp 97.0 F 04/22/21 10:42 Pulse 84 04/22/21 13:58 Resp 16 04/22/21 13:58 BP 133/57 L 04/22/21 13:58 Pulse Ox 100 04/22/21 13:58 Body Mass Index 28.3 Const: General: cooperative, healthy appearing, comfortable and no acute distress Orientation/consciousness: patient oriented x3 Limitations: no limitations HENMT: Head: Yes normal to inspection Ears: hearing grossly normal bilaterally and TM's normal bilaterally General nose exam: Normal external nose present Face and sinus: Yes normal facial exam Mouth: Normal oral and palatal mucosa present Throat: Yes posterior oropharynx normal, Yes tonsils normal and Yes uvula midline Eyes: General: appearance normal, both eyes and all related structures Pupils: Equal, round and reactive pupils present Neck: Neck: Yes normal visual inspection Chest: Chest palpation & inspection: normal inspection of the chest Resp: Effort & Inspection: normal respiratory effort Auscultation: clear to auscultation bilaterally Cardio: Rate: regular rate Rhythm: regular rhythm Peripheral pulses: Peripheral pulses 2+ throughout GI: Inspection: Yes normal to inspection Palpation (GI): Soft to palpation and nontender Auscultation: normal bowel sounds : General: Yes no CVA tenderness Back/Spine/Pelvis: Back: no CVA tenderness Thoracic/Lumbar Spine: thoracic and lumbar spine normal to inspection Skin: General skin exam: no rashes or lesions noted Neuro: General: patient oriented x3, no focal motor deficits and normal sensation to monofilament Cranial nerves: Yes CN's II-XII intact bilaterally, Yes Equal, round and reactive pupils present, Yes Bilaterally intact EOM present, Yes Nystagmus not present and Yes Midline tongue present Cognition (Neuro): normal cognition Speech: No Abnormal speech present Gait exam (Neuro): Normal gait present Motor exam (neuro): 5/5 motor strength present throughout Sensory Exam: Normal double simultaneous stimulation for sensation Extrem: General: Yes normal to inspection, Yes no pedal edema and Yes no calf tenderness Course Course Course Narrative: 70-year-old female here with episode of dizziness and shortness of breath yesterday which lasted several minutes and then self-resolved. Patient seen here yesterday at the patient but left without being seen. Had some labs and EKG and chest x-ray done yesterday. Returns because daughter was concerned for episode not because the patient is feeling unwell. Patient tells me she has had no additional episodes and she is feeling fine. No physical complaints. Vitals are stable Patient did have a chest x-ray yesterday which showed no acute finding. She had EKG which showed a normal sinus rhythm with no signs of ischemia. She had a basic set of labs which are unremarkable. She does have a history of pulmonary embolisms but is on Xarelto and reports she has been compliant with this Will check chest x-ray, covid screen, labs 1457-labs are unremarkable. Chest x-ray reviewed from yesterday normal. EKG shows no ischemic changes COVID screen is negative. Patient has had no symptoms since being here and feels well own like to be discharged home. I did explain to her and her family that she does have a microcytic anemia which is unchanged from previous. Otherwise her workup is negative and she can follow up outpatient with her primary care doctor. Reviewed worrisome signs and symptoms of when to return to the emergency department. Comfortable with discharge home. Medical Decision Making Medical Records Medical records reviewed: Yes I reviewed the patient's medical records. Lab Data Lab results reviewed: Yes I reviewed the patient's lab results. Result diagrams: 04/22/21 14:10 04/22/21 14:10 Labs: Lab Results 04/22/21 04/22/21 04/22/21 Range/Units 14:10 14:10 14:10 WBC 8.2 (4.8-10.8) X10*3/uL RBC 3.66 L (4.20-5.50) X10*6/uL Hgb 8.2 L (12.0-16.0) g/dl Hct 27.7 L (37-47) % MCV 75.7 L (80-98) fL MCH 22.4 L (27.0-33.0) pg MCHC 29.6 L (31.0-35.0) g/dl RDW 16.3 H (11.0-16.0) % Plt Count 399 (160-400) X10*3/uL MPV 8.9 L (9.4-12.3) fL Immature Gran % (Auto) 0.2 (0.0-0.4) % Neut % (Auto) 56.2 (45-73) % Lymph % (Auto) 23.3 (20-40) % Laporte % (Auto) 7.6 (2-11) % Eos % (Auto) 11.6 H (0-4) % Baso % (Auto) 1.1 (0-2) % Lymph # (Auto) 1.9 (1.2-4.9) X10*3/uL Laporte # (Auto) 0.6 (0.1-1.2) X10*3/uL Eos # (Auto) 1.0 H (0.0-0.4) X10*3/uL Baso # (Auto) 0.1 (0.0-0.2) X10*3/uL Abs Immat Gran (auto) 0.02 (0.00-0.03) X10*3/uL Absolute Neuts (auto) 4.6 (2.0-8.3) X10*3/uL Absolute Nucleated RBC 0.000 (0.0-0.012) X10*3/uL Nucleated RBC % (auto) 0.0 (0.0-0.2) /100WBC Sodium 138 (135-145) mmol/L Potassium 4.2 (3.3-5.1) mmol/L Chloride 108 (96-108) mmol/L Carbon Dioxide 21 L (22-29) mmol/L Anion Gap 13 (12-20) BUN 28 H (9-16) mg/dL Creatinine 0.86 (0.5-1.4) mg/dL Estim Creat Clear Calc 54.2 Estimated GFR > 60 Random Glucose 112 (60-115) mg/dL Calcium 9.4 (8.4-10.2) mg/dL Magnesium 2.1 (1.6-2.6) mg/dL Total Bilirubin 0.2 (0.0-1.0) mg/dL Direct Bilirubin < 0.2 (0.0-0.5) mg/dL AST 12 (5-31) U/L ALT 9 (0-31) U/L Alkaline Phosphatase 55 (39-117) U/L Troponin I High Sens 6.2 (<3.5-17.0) ng/L Total Protein 7.1 (6.5-8.0) g/dL Albumin 3.6 (3.5-5.0) g/dL COVID-19 ([facility]) (Negative) COVID-19 Clin Com 04/22/21 Range/Units 14:10 WBC (4.8-10.8) X10*3/uL RBC (4.20-5.50) X10*6/uL Hgb (12.0-16.0) g/dl Hct (37-47) % MCV (80-98) fL MCH (27.0-33.0) pg MCHC (31.0-35.0) g/dl RDW (11.0-16.0) % Plt Count (160-400) X10*3/uL MPV (9.4-12.3) fL Immature Gran % (Auto) (0.0-0.4) % Neut % (Auto) (45-73) % Lymph % (Auto) (20-40) % Laporte % (Auto) (2-11) % Eos % (Auto) (0-4) % Baso % (Auto) (0-2) % Lymph # (Auto) (1.2-4.9) X10*3/uL Laporte # (Auto) (0.1-1.2) X10*3/uL Eos # (Auto) (0.0-0.4) X10*3/uL Baso # (Auto) (0.0-0.2) X10*3/uL Abs Immat Gran (auto) (0.00-0.03) X10*3/uL Absolute Neuts (auto) (2.0-8.3) X10*3/uL Absolute Nucleated RBC (0.0-0.012) X10*3/uL Nucleated RBC % (auto) (0.0-0.2) /100WBC Sodium (135-145) mmol/L Potassium (3.3-5.1) mmol/L Chloride (96-108) mmol/L Carbon Dioxide (22-29) mmol/L Anion Gap (12-20) BUN (9-16) mg/dL Creatinine (0.5-1.4) mg/dL Estim Creat Clear Calc Estimated GFR Random Glucose (60-115) mg/dL Calcium (8.4-10.2) mg/dL Magnesium (1.6-2.6) mg/dL Total Bilirubin (0.0-1.0) mg/dL Direct Bilirubin (0.0-0.5) mg/dL AST (5-31) U/L ALT (0-31) U/L Alkaline Phosphatase (39-117) U/L Troponin I High Sens (<3.5-17.0) ng/L Total Protein (6.5-8.0) g/dL Albumin (3.5-5.0) g/dL COVID-19 ([facility]) Negative (Negative) COVID-19 Clin Com See Note ECG Data Attestation: I personally reviewed and interpreted this ECG as follows: Interpretation: EKG normal sinus rhythm rate of 83, normal NE, normal QRS, normal QT Discharge Plan Discharge Clinical Impression: Dizziness, Chronic anemia Patient Disposition: Home, Self-Care Instructions: Dizziness (ED), Anemia (ED) Prescriptions: No Action Xarelto 20 mg Tablet 20 mg PO DAILY Qty: 60 RF: 3 letrozole 2.5 mg Tablet 2.5 mg PO DAILY Qty: 60 RF: 3 omeprazole 40 mg capsule,delayed release(DR/EC) 40 mg PO QAM RF: 0 multivitamin Tablet 1 tab PO DAILY RF: 0 (DME) bedside commode Kit See Rx Instructions .Route Qty: 1 RF: 0 (DME) Shower Chair Misc See Rx Instructions .Route Qty: 1 RF: 0 ibuprofen 800 mg tablet 800 mg PO DAILY RF: 0 melatonin 5 mg tablet 5 mg PO BEDTIME PRN (Reason: Insomnia) RF: 0 irbesartan 300 mg tablet 300 mg PO QAM RF: 0 montelukast 10 mg tablet 10 mg PO DAILY RF: 0 amlodipine 2.5 mg tablet 2.5 mg PO DAILY RF: 0 clonazepam 0.5 mg tablet 0.5 mg PO BEDTIME RF: 0 albuterol sulfate 2.5 mg /3 mL (0.083 %) solution for nebulization 2.5 mg inhalation Q4H RF: 0 cholecalciferol (vitamin D3) 25 mcg (1,000 unit) capsule 25 mcg PO DAILY RF: 0 fluoxetine 20 mg capsule 20 mg PO DAILY RF: 0 atorvastatin 40 mg tablet 40 mg PO DAILY RF: 0 Trelegy Ellipta 200-62.5-25 mcg blister with device 1 inh inhalation DAILY 30 Days Qty: 1 RF: 6 ipratropium-albuterol 0.5 mg-3 mg(2.5 mg base)/3 mL solution for nebulization 3 ml inhalation Q4H PRN (Reason: wheezing) 30 Days Qty: 270 RF: 6 theophylline 400 mg tablet extended release 24 hr 400 mg PO DAILY 30 Days Qty: 30 RF: 3 Referrals: [facility] [Primary Care Provider] - 2 days Interventions: ED Discharge Assessment Last Done: 04/22/21 15:03 Discharge Date/Time: 04/22/21 15:03
[2021-04-22 14:34] LABS: COVID-19 Test Negative (Negative)
[2021-04-22 14:35] LABS: Troponin-I High Sensitivity 6.2 ng/L (<3.5-17.0)
[2021-04-22 14:44] LABS: Alanine Aminotransferase 9 U/L (0-31); Albumin Level 3.6 g/dL (3.5-5.0); Alkaline Phosphatase 55 U/L (39-117); Anion Gap 13 (12-20); Aspartate Amino Transferase 12 U/L (5-31); Bilirubin Direct < 0.2 mg/dL (0.0-0.5); Bilirubin Total 0.2 mg/dL (0.0-1.0); Blood Urea Nitrogen 28 mg/dL (9-16); Calcium 9.4 mg/dL (8.4-10.2); Carbon Dioxide 21 mmol/L (22-29); Chloride 108 mmol/L (96-108); Creatinine Clr Calc Pharmacy 54.2; Estimated Glomerular Filt Rate > 60; Glucose Random 112 mg/dL (60-115); Magnesium 2.1 mg/dL (1.6-2.6); Potassium 4.2 mmol/L (3.3-5.1); Sodium 138 mmol/L (135-145); Total Protein 7.1 g/dL (6.5-8.0)
== END 2021-04-22 15:03 | disposition home or self-care (01) ==
PROVIDERS: Nurse Practitioner Family; Emergency Provider Emergency Medicine
DX: R42 Dizziness and giddiness (principal); D64.89 Other specified anemias; I10 Essential (primary) hypertension; Z86.711 Personal history of pulmonary embolism; Z79.01 Long term (current) use of anticoagulants; Z20.822 Contact with and (suspected) exposure to COVID-19
CPT/HCPCS: 36415; 80048; 80076; 83735; 84484; 85025; 87635; 93005; 99283; 99284

== ENCOUNTER → 2021-05-11 09:19 | Outpatient (BNVA) | payer MEDICARE, SELFPAY | PROVIDERS: Referring Provider Family Medicine; Visit Provider Internal Medicine | DX: I21.4 Non-ST elevation (NSTEMI) myocardial infarction (principal); I27.20 Pulmonary hypertension, unspecified; I10 Essential (primary) hypertension; E78.5 Hyperlipidemia, unspecified; J44.9 Chronic obstructive pulmonary disease, unspecified; F17.210 Nicotine dependence, cigarettes, uncomplicated; Z85.3 Personal history of malignant neoplasm of breast; Z80.3 Family history of malignant neoplasm of breast; Z88.1 Allergy status to other antibiotic agents; Z88.0 Allergy status to penicillin; Z88.8 Allergy status to other drugs, medicaments and biological substances; Z79.899 Other long term (current) drug therapy | CPT/HCPCS: 99212 ==

== ENCOUNTER → 2021-06-25 10:30 | Outpatient (BNVA) | payer MEDICARE, SELFPAY | PROVIDERS: PCP Family Medicine; Visit Provider Internal Medicine Pulmonary Disease | DX: J44.9 Chronic obstructive pulmonary disease, unspecified (principal); R91.8 Other nonspecific abnormal finding of lung field; Z87.891 Personal history of nicotine dependence | CPT/HCPCS: 99212 ==

== ENCOUNTER 2021-08-10 10:13 | Outpatient (REF) | payer MEDICARE, SELFPAY ==
[2021-08-10 12:14] LABS: Hematocrit 39.2 % (37.0-47.0); Hemoglobin 12.7 g/dl (12.0-16.0)
[2021-08-10 12:56] LABS: TSH reflex Free T4 1.58 uIU/mL (0.32-4.0)
[2021-08-10 13:24] LABS: Folate 12.1 ng/mL (> or = 4.0); Vitamin B12 407 pg/mL (200-900)
[2021-08-12 15:42] LABS: Transglutaminase Ab IgG <1.0 U/mL; Transglutaminase IgA <1.0 U/mL
[2021-08-14 13:36] LABS: Vitamin D 25-OH, D2 <4 ng/mL; Vitamin D 25-OH, D3 38 ng/mL; Vitamin D 25-OH, Total 38 ng/mL (30-100)
== END 2021-08-10 10:14 | disposition home or self-care (01) ==
LOC: HO.LAB 10:13
PROVIDERS: PCP Family Medicine; Referring Provider Family Medicine; Visit Provider Nurse Practitioner Family
DX: R19.7 Diarrhea, unspecified (principal); R10.11 Right upper quadrant pain; E55.9 Vitamin D deficiency, unspecified; K58.2 Mixed irritable bowel syndrome; K21.9 Gastro-esophageal reflux disease without esophagitis; R14.0 Abdominal distension (gaseous); D50.9 Iron deficiency anemia, unspecified; K59.03 Drug induced constipation
CPT/HCPCS: 36415; 82306; 82607; 82746; 84443; 85014; 85018; 86364; 99202

== ENCOUNTER → 2021-09-23 08:52 | Outpatient (BNVA) | payer MEDICARE, SELFPAY | PROVIDERS: PCP Family Medicine; Visit Provider Internal Medicine Pulmonary Disease | DX: J44.1 Chronic obstructive pulmonary disease with (acute) exacerbation (principal); R91.8 Other nonspecific abnormal finding of lung field | CPT/HCPCS: 99212 ==

== ENCOUNTER → 2021-10-07 09:48 | Outpatient (BNVA) | payer MEDICARE, SELFPAY | PROVIDERS: PCP Family Medicine; Referring Provider Family Medicine; Visit Provider Nurse Practitioner Family | DX: Z01.818 Encounter for other preprocedural examination (principal); K21.9 Gastro-esophageal reflux disease without esophagitis; K59.04 Chronic idiopathic constipation; D50.9 Iron deficiency anemia, unspecified | CPT/HCPCS: 99212 ==

== ENCOUNTER → 2021-11-19 09:37 | Outpatient (BNVA) | payer MEDICARE, SELFPAY | PROVIDERS: PCP Family Medicine; Visit Provider Internal Medicine Pulmonary Disease | DX: J44.1 Chronic obstructive pulmonary disease with (acute) exacerbation (principal) | CPT/HCPCS: 99212 ==

== ENCOUNTER → 2021-12-25 09:18 | Outpatient (REF) | payer MEDICARE, SELFPAY ==
--- NOTE | 2021-12-25 09:21 | CA_ITS ---
Transthoracic Echocardiogram Patient (Last, First, Middle): Kray Aggarwal, Gender: Female Date of : 1950 Age: 71 Procedure Date: 12/25/2021 Procedure Type: Transthoracic Echocardiogram Location: OP Height: 157.48 cm Weight: 68.95 kg BSA: 1.70 m2 Heart Rate: bpm BP: 126 / 70 mmHg Iron Pellet Tester: YR/TO Referring MD: Gibson Reeves MD Symptoms: I27.20 - Pulmonary hypertension, unspecified Study Quality: Fair Conclusions: - Normal left ventricular size and systolic function. The visually estimated ejection fraction is between 65-70%. - E/E prime ratio is <8, consistent with normal filling pressures. - Normal right ventricular cavity size and systolic function. - Mild pulmonary hypertension is present. Findings Left Ventricle Normal left ventricular size and systolic function. The visually estimated ejection fraction is between 65-70%. There is no evidence of regional wall motion abnormalities. Abnormal diastolic function is noted. Spectral Doppler is indicative of an impaired relaxation filling pattern. E/E prime ratio is <8, consistent with normal filling pressures. Right Ventricle Normal right ventricular cavity size and systolic function. Atria Both atria are normal in size. Aortic Valve There is a normal trileaflet aortic valve. There is mild thickening of the aortic valve. There is no aortic valve stenosis. There is mild aortic valve regurgitation. Mitral Valve The mitral valve appears normal. There is no mitral valve regurgitation. There is no mitral valve stenosis. Pulmonic Valve The pulmonic valve is likely normal. Tricuspid Valve Normal tricuspid valve structure. There is trace tricuspid valve regurgitation. Normal right atrial pressure. Mild pulmonary hypertension is present. Great Vessels All visible segments of the aorta are normal in size. Venous The inferior vena cava is normal in size and collapses greater than 50% with inspiration. Pericardium/Pleural There is no evidence of pericardial effusion. Prior Study Comparison Changes noted compared to prior study dated: 02/05/2021. Normal filling pressures, mild pulmonary hypertension, mild AI. Measurements 2D Linear Measurements IVSd: 1.22 0.6-0.9/0.6-1.0 cm LVIDd: 3.34 3.9-5.3/4.2-5.9 cm LVIDd Index: 1.96 2.4-3.2/2.2-3.1 cm/m2 LVIDs: 2.49 2.0-3.6 cm LVPWd: 0.87 0.7-1.1 cm LA Diam: 2.40 2.7-3.8/3.0-4.0 cm LAIDs Index: 1.41 1.5-2.3 cm/m2 LV Mass: 127.76 67-162/88-224 g LV Mass Index: 75.15 43-95/49-115 g/m2 LVOT Diam: 2.00 3.0+(-)1.3 cm 2D Systolic Function EF 4C: 59.20 >55% EF 2C: 60.40 >55% EF BiP: 60.50 >55% Mitral Valve MV Pk E: 0.53 MV PK A: 0.76 MV Decel Time: 202.00 E/A: 0.70 E'Lateral: 7.29 E'Medial: 6.20 E/E' Med: 8.50 E/E' Lat: 7.20 PHT: 59.00 MVA PHT: 3.73 Decel Warrick: 2.60 Aortic Valve AoV Pk Riley: 1.50 AoV Mn Riley: 1.11 AoV VTI: 0.30 AoV Pk Grad: 9.00 Aov Mn Grad: 5.00 BALDEV Cont.VTI: 2.60 AI Pk Riley: 5.16 AI Warrick: 2.33 LVOT LVOT Pk Riley: 1.26 LVOT Mn Riley: 0.96 LVOT VTI: 0.25 LVOT Pk Grad: 6.00 LVOT Mn Grad: 4.00 LVOT Diam: 2.00 LVOT Area: 3.14 Diastolic Function MV Pk E: 0.53 MV Pk A: 0.76 E/A: 0.70 E'Medial: 6.20 E/E' Med: 8.50 E' Laterial: 7.29 E/E' Lat: 7.20 Right Ventricle TAPSE (mm): 19.70 TVS' Riley: 12.60 Tricuspid Valve TR Pk Riley: 2.64 TR Pk Grad: 28.00 RA Press: 8.00 RVSP: 36.00 Great Vessels Aorta Sinus of Valsalva: 3.09 2.0-3.[address] Ridge: 2.52 1.7-3.4 cm Ao Asc: 3.20 2.1-3.4 cm Ao Arch: 3.10 Updated in Other Vendor System with Status of Final Eric Xiao MD electronically signed on 12/26/2021 8:09:37 PM with status of Final
== END ==
LOC: HO.CARD 09:18
PROVIDERS: Visit Provider Internal Medicine
DX: I27.20 Pulmonary hypertension, unspecified (principal)
CPT/HCPCS: 93306

== ENCOUNTER → 2022-01-05 09:59 | Outpatient (BNVA) | payer OTHER, SELFPAY | PROVIDERS: PCP Family Medicine; Visit Provider Internal Medicine Pulmonary Disease | DX: J44.9 Chronic obstructive pulmonary disease, unspecified (principal); R91.8 Other nonspecific abnormal finding of lung field | CPT/HCPCS: 99212 ==

== ENCOUNTER → 2022-01-18 07:44 | Day surgery (SDC) | payer OTHER, SELFPAY ==
--- NOTE | 2022-01-15 10:26 | HO.ANESPROP2 ---
Documented by User: Jackie Layne NP 01/15/22 11:03 HPI - Anesthesia Eval Consult details Narrative: 71yo F for Colonoscopy GI provider requested pulmo and cardiol clearance. Pending. Xarelto for hx of PE PMFSH Active Problems Active Problems: All Active Problems (Updated 09/23/21 @ 09:14 by Oscar Lemos MD) COPD exacerbation (Acute) Asthma-COPD overlap syndrome (Acute) Pulmonary hypertension (Acute) Dyspnea on exertion (Acute) Bilateral pulmonary embolism (Acute) Pulmonary embolism (Acute) Pulmonary nodules (Acute) Pulmonary nodules (Acute) History of breast cancer (Chronic) Past Medical History Medical History Anemia of chronic disease Asthma-COPD overlap syndrome Depression History of breast cancer HLD (hyperlipidemia) Hypertension Pulmonary embolism Pulmonary nodules Smoker Family History Family History Mother History of breast cancer Sister History of breast cancer History of colon polyps History of colitis History of colon cancer Maternal Aunt History of breast cancer Surgical History Surgical History History of bronchoscopy (~04/28/11) History of colonoscopy (~09/10/08) History of esophagogastroduodenoscopy (EGD) (~08/09/11) History of excision of mass (~06/01/19) History of lumpectomy of right breast (~05/10/19) History of right breast biopsy (~04/26/19) History of toe surgery Social History Social History Household Members: Children Housing: House Alcohol intake: former Patient Tobacco Use Status: Former Tobacco user Quit Date: 05/2020 Advance Directives: No Advance Directives Information Provided: Yes service: No Current occupational status: disabled Meds Allergies Allergy/AdvReac Type Severity Reaction Status Date / Time penicillin G [Penicillin G] Allergy Mild RASH Verified 01/05/22 10:15 potassium [POTASSIUM] Allergy Unknown PEDAL EDEMA Verified 01/05/22 10:15 Home Medications Medication Instructions Recorded Confirmed Last Taken Type albuterol sulfate 2.5 mg inhalation Q4H 04/24/20 05/20/21 02/03/21 History amlodipine 2.5 mg tablet 2.5 mg PO DAILY 04/24/20 05/20/21 02/03/21 History atorvastatin 40 mg tablet 40 mg PO DAILY 04/24/20 05/20/21 02/03/21 History clonazepam 0.5 mg tablet 0.5 mg PO BEDTIME 04/24/20 05/20/21 02/03/21 History fluoxetine 20 mg capsule 20 mg PO DAILY 04/24/20 05/20/21 02/03/21 History ibuprofen 800 mg tablet 800 mg PO DAILY 04/24/20 05/20/21 02/03/21 History irbesartan 300 mg tablet 300 mg PO QAM 04/24/20 05/20/21 02/03/21 History melatonin 5 mg tablet 5 mg PO BEDTIME PRN Insomnia 04/24/20 05/20/21 02/03/21 History montelukast 10 mg tablet 10 mg PO DAILY 04/24/20 05/20/21 02/03/21 History multivitamin 1 tab PO DAILY 02/04/21 05/20/21 02/03/21 History omeprazole 40 mg capsule,delayed 40 mg PO QAM 02/04/21 05/20/21 02/03/21 History release cetirizine 10 mg tablet 10 mg PO QAM PRN allergies 10/07/21 Unknown History fluticasone 250 mcg-salmeterol 50 1 ea PO BID 10/07/21 Unknown History mcg/dose blistr powdr for inhalation letrozole 2.5 mg tablet 2.5 mg PO QAM 10/07/21 Unknown History meclizine 25 mg tablet 25 mg PO TID PRN dizziness 10/07/21 Unknown History tamoxifen 20 mg tablet 20 mg PO QPM 10/07/21 Unknown History fluticasone 250 mcg-salmeterol 50 1 inh inhalation BID 11/19/21 Unknown History mcg/dose blistr powdr for inhalation (Advair Diskus) Exam Exam Date and Time: January 15, 2022 1026 Pertinent Lab Results Pertinent Lab Results: Laboratory Tests 05/20/21 05/20/21 08/10/21 10:08 10:08 11:43 WBC 8.5 Hgb 12.7 Hct 39.2 Plt Count 256 Sodium 142 Potassium 4.1 Chloride 109 H Carbon Dioxide 27 BUN 31 H Creatinine 1.01 Narrative Narrative: ECHO 12/2021 Conclusions: - Normal left ventricular size and systolic function. The? visually estimated ejection fraction is between 65-70%.? - E/E prime ratio is <8, consistent with normal filling? pressures. ? - Normal right ventricular cavity size and systolic function.? ? - Mild pulmonary hypertension is present.? EKG 04/2021 Vent. Rate : 083 BPM ? ? Atrial Rate : 083 BPM ?? P-R Int : 136 ms? QRS Dur : 080 ms ? ? QT Int : 386 ms ? ? ? P-R-T Axes : 062 058 053 degrees ?? QTc Int : 453 ms ? Normal sinus rhythm Normal ECG No previous ECGs available NM [place] perf SPECT rest & str 03/2021 Impression: ? 1.? Myocardial perfusion imaging study shows likely normal myocardial perfusion. 2.? Gated LVEF is 56% during stress and 41% during rest; visually, LVEF appears normal during stress and rest. Correlate with echocardiogram. 3. Transient ischemic dilatation not present. ? EKG component of the test reported separately. Assessment and Plan Assessment Anesthesia Assessment: Chart Reviewed Documented by User: Marlene Silva MD 01/18/22 08:46 PMFSH Past Medical History Medical History Anemia of chronic disease Asthma-COPD overlap syndrome Depression History of breast cancer HLD (hyperlipidemia) Hypertension Pulmonary embolism Pulmonary nodules Smoker Family History Family History Mother History of breast cancer Sister History of breast cancer History of colon polyps History of colitis History of colon cancer Maternal Aunt History of breast cancer Family history of problems with anesthesia: No Surgical History Surgical History History of bronchoscopy (~04/28/11) History of colonoscopy (~09/10/08) History of esophagogastroduodenoscopy (EGD) (~08/09/11) History of excision of mass (~06/01/19) History of lumpectomy of right breast (~05/10/19) History of right breast biopsy (~04/26/19) History of toe surgery History of Problems with Anesthesia: No Social History Social History Household Members: Children Housing: House Alcohol intake: former Patient Tobacco Use Status: Former Tobacco user Quit Date: 05/2020 Advance Directives: No Advance Directives Information Provided: Yes service: No Current occupational status: disabled Meds Allergies Allergy/AdvReac Type Severity Reaction Status Date / Time penicillin G [Penicillin G] Allergy Mild RASH Verified 01/05/22 10:15 potassium [POTASSIUM] Allergy Unknown PEDAL EDEMA Verified 01/05/22 10:15 Home Medications Medication Instructions Recorded Confirmed Last Taken Type albuterol sulfate 2.5 mg inhalation Q4H 04/24/20 05/20/21 02/03/21 History amlodipine 2.5 mg tablet 2.5 mg PO DAILY 04/24/20 05/20/21 02/03/21 History atorvastatin 40 mg tablet 40 mg PO DAILY 04/24/20 05/20/21 02/03/21 History clonazepam 0.5 mg tablet 0.5 mg PO BEDTIME 04/24/20 05/20/21 02/03/21 History fluoxetine 20 mg capsule 20 mg PO DAILY 04/24/20 05/20/21 02/03/21 History ibuprofen 800 mg tablet 800 mg PO DAILY 04/24/20 05/20/21 02/03/21 History irbesartan 300 mg tablet 300 mg PO QAM 04/24/20 05/20/21 02/03/21 History melatonin 5 mg tablet 5 mg PO BEDTIME PRN Insomnia 04/24/20 05/20/21 02/03/21 History montelukast 10 mg tablet 10 mg PO DAILY 04/24/20 05/20/21 02/03/21 History multivitamin 1 tab PO DAILY 02/04/21 05/20/21 02/03/21 History omeprazole 40 mg capsule,delayed 40 mg PO QAM 02/04/21 05/20/21 02/03/21 History release cetirizine 10 mg tablet 10 mg PO QAM PRN allergies 10/07/21 Unknown History fluticasone 250 mcg-salmeterol 50 1 ea PO BID 10/07/21 Unknown History mcg/dose blistr powdr for inhalation letrozole 2.5 mg tablet 2.5 mg PO QAM 10/07/21 Unknown History meclizine 25 mg tablet 25 mg PO TID PRN dizziness 10/07/21 Unknown History tamoxifen 20 mg tablet 20 mg PO QPM 10/07/21 Unknown History fluticasone 250 mcg-salmeterol 50 1 inh inhalation BID 11/19/21 Unknown History mcg/dose blistr powdr for inhalation (Advair Diskus) Exam Airway Mallampati Class: II TM Dist: >3cm Neck ROM: Full Heart: rrr Lungs: cta Assessment and Plan Assessment Anesthesia Assessment: Anesthesia Plan Discussed and Chart Reviewed Final Anesthetic Review Family History of Problems with Anesthesia: No History of Problems with Anesthesia: No NPO: Yes ASA Class: III Final Preanesthetic Review: No Changes in Pt Med Stat, Meds/Allgs Chart Reviewed and Consent Obtained/Reviewed Patient Risk: Intermediate Procedure Risk: Intermediate Anesthetic Plan Anesthetic Plan: MAC: Disposition: Standard PACU
--- NOTE | 2022-01-18 08:33 | MHC.SHP ---
Pre-Procedural Eval Section A Date of Service: 01/18/22 The patient is an INPATIENT: No The History & Physical has been completed within 30 days and I have reviewed it.: No Section B Chief Complaint: screening Details of Present Illness: Colon cancer screen, IBS with constipation, family history of colon polyps Relevant Family History (Specify if Yes): Yes Relevant Social History: Tobacco Use (Former smoker) Present Medications: see Short Stay Collaborative assessment Medical History: Significant History (Anemia of chronic disease Asthma-COPD overlap syndrome Depression History of breast cancer HLD (hyperlipidemia) Hypertension Pulmonary embolism Pulmonary nodules Smoker) History of Previous Operations: Relevant previous surgery/procedure and date(s) (History of bronchoscopy (~04/28/11) History of colonoscopy (~09/10/08) History of esophagogastroduodenoscopy (EGD) (~08/09/11) History of excision of mass (~06/01/19) History of lumpectomy of right breast (~05/10/19) History of right breast biopsy (~04/26/19) History of toe surgery) Allergies: Allergies Allergy/AdvReac Type Severity Reaction Status Date / Time penicillin G [Penicillin G] Allergy Mild RASH Verified 01/05/22 10:15 potassium [POTASSIUM] Allergy Unknown PEDAL EDEMA Verified 01/05/22 10:15 Plan I have reviewed the history and physical and performed a pertinent physical examination on my patient. No changes have occurred unless specified.
--- NOTE | 2022-01-18 08:34 | P.BOP_ITS ---
Brief Operative Note Date of Service: 01/18/22 Procedure: COLONOSCOPY TILL CECUM WITH Consent: Indications for the procedure and potential complications of bleeding, perforation, reaction to medications and missed diagnosis were discussed with the patient and informed consent was obtained. Instrument: Olympus PCF H 190 L variable stiffness pediatric colonoscope Monitoring: Vital signs and clinical assessment, intermittent blood pressure monitoring, continuous EKG monitoring, Pulse oximetry and Carbon Dioxide monitoring were done throughout the procedure. Colon withdrawl time was [] minutes. Procedure: The patient was placed in the left lateral decubitis position and pre-procedure medications were administered. After a digital rectal examination of the ano-rectum, the video colonoscope was inserted into the rectum and advanced through the colon to the cecum. The colonoscope was slowly withdrawn in a retrograde panoramic fashion and the colon mucosa was carefully examined including a retroflexed view of the rectum. Findings and interventions are described below. Procedure Difficulty: [Without difficulty] [LLQ pressure applied to intubate the transverse colon/cecum] Findings: Terminal Ileum: Not evaluated Cecum: Normal Ascending Colon: Normal Transverse Colon: Normal Descending Colon: Normal Sigmoid Colon: Moderate diverticulosis Rectum: Normal Ano-rectum: Moderate internal hemorrhoids Colon preparation: [Excellent] [Good] [Fair] [poor] Impression and Post Procedure Diagnosis: Colonoscopy Findings: [] polyps removed Moderate diverticulosis seen in the []colon Moderate hemorrhoids on retroflexed exam. Plan: Await pathology results Patient has an appointment on 02/05/22 in the [facility] with Deisy Cantor FNP- [facility]. Repeat Colonoscopy interval based on path results - in 3-5 years if polyps are adenomatous and 10 years if polyps are hyperplastic. Above findings were reviewed with the patient and [colon polyps] and [diverticulosis] handouts were given in the discharge area Surgeon: Doyle Loco MD Was an Raw Shellfish Preparer used for this Procedure?: No
[2022-01-18 08:42] VITALS: BMI 28.1
[2022-01-18 08:47] VITALS: BP 152/76; PULSE 76; RESP 18; TEMP 36.5; O2SAT 97
[2022-01-18] MEDS: Lactated Ringers 1,000 ML 100 ML IVCONT (08:55)
--- NOTE | 2022-01-18 08:59 | PC.NURSE ---
pt admits to jer ralph salad at 6pm. then prep. took all prep. clear return. anesthesia aware. took xaralto yesterday. procedure cancelede
--- NOTE | 2022-01-18 17:26 | PM.EVENT ---
Event Note Date of Service: 01/18/22 Event Note: Pt arrived for her colonoscopy appt. Ate pork chops and rice yesterday evening. Stated she took all her prep and has clear BMs When asked about Xarelto, she stated she took it yesterday. She said she did not receive instructions to hold the Xarelto. Pt was advised to reschedule her procedure - Message sent to GI schedular to make sure she has instructions to hold the Xarelto when her procedure is rescheduled.
== END ==
PROVIDERS: PCP Family Medicine; Visit Provider Internal Medicine Gastroenterology
DX: Z12.11 Encounter for screening for malignant neoplasm of colon (principal); Z53.8 Procedure and treatment not carried out for other reasons; Z79.01 Long term (current) use of anticoagulants

== ENCOUNTER 2022-03-29 09:10 | Outpatient (REF) | payer OTHER, SELFPAY ==
--- NOTE | ~2022-03-29 | MM_ITS ---
EXAMINATION: MM DIAGNOSTIC DIGITAL BREAST TOMOSYNTHESIS, BILATERAL CLINICAL INFORMATION: Right breast IDC, status post lumpectomy 05/10/2019. Due for yearly. COMPARISON: Mammography: 03/27/2021, 04/03/2020, 05/10/2019, 04/26/2019, 04/13/2019 TECHNIQUE: Digital breast tomosynthesis is performed in both the craniocaudal and mediolateral oblique views along with computer-aided detection (CAD). Synthesized 2D images are generated from the tomosynthesis. Additional magnification right CC and magnification right ML views are obtained. FINDINGS: There are scattered areas of fibroglandular density (ACR BI-RADS breast composition Category b). The right breast has post therapy changes with mild reduced breast size and stable scarring similar to prior post lumpectomy exams. Left breast parenchymal pattern is similar to prior exams. There is no developing density or interval mass or architectural abnormality in either breast. There are no abnormal calcifications. The axilla are unremarkable. Results are provided to the patient at time of visit by the technologist. MM/MM tomosynthesis diagnostic BI IMPRESSION: -No mammographic evidence of malignancy. -Post therapy changes right breast, stable. ASSESSMENT: BI-RADS 2: Benign RECOMMENDATION: Routine annual mammography screening. This patient's information was entered into a reminder system with a target due date for their next mammogram.
== END 2022-03-29 09:11 | disposition home or self-care (01) ==
LOC: HO.MAMMO 09:10
PROVIDERS: PCP Family Medicine; Visit Provider Internal Medicine
DX: R92.1 Mammographic calcification found on diagnostic imaging of breast (principal)
CPT/HCPCS: 77062; 77066

== ENCOUNTER → 2022-07-14 09:55 | Outpatient (BNVA) | payer OTHER, SELFPAY | PROVIDERS: PCP Family Medicine; Visit Provider Internal Medicine Pulmonary Disease | DX: J44.9 Chronic obstructive pulmonary disease, unspecified (principal); Z79.899 Other long term (current) drug therapy | CPT/HCPCS: 99212 ==

== ENCOUNTER 2023-01-24 06:49 | Day surgery (SDC) | payer OTHER, SELFPAY ==
[2022-10-15 08:53] VITALS: BMI 27.8
[2022-10-15 09:43] VITALS: BMI 26.5
--- NOTE | 2023-01-24 06:51 | ECG_ITS ---
Test Reason : preop Blood Pressure : / mmHG Vent. Rate : 080 BPM Atrial Rate : 080 BPM P-R Int : 142 ms QRS Dur : 090 ms QT Int : 406 ms P-R-T Axes : 047 013 050 degrees QTc Int : 468 ms Sinus rhythm with Premature atrial complexes Otherwise normal ECG When compared to the previous EKG of No significant changes seen Referred By: Lucía Miller Electronically Signed By:Eric Xiao
--- NOTE | 2023-01-24 06:59 | P.CONAN_ITS ---
[facility] Active Problems Active Problems: All Active Problems (Updated 02/16/22 @ 09:57 by Fatimah Zayas MD) COPD exacerbation (Acute) Asthma-COPD overlap syndrome (Acute) Pulmonary hypertension (Acute) Dyspnea on exertion (Acute) Bilateral pulmonary embolism (Acute) Pulmonary embolism (Acute) Pulmonary nodules (Acute) Pulmonary nodules (Acute) History of breast cancer (Chronic) Past Medical History Medical History Anemia of chronic disease Asthma-COPD overlap syndrome Depression GERD (gastroesophageal reflux disease) History of breast cancer HLD (hyperlipidemia) Hypertension Pulmonary embolism Pulmonary nodules Smoker Family History Family History Mother History of breast cancer Sister History of breast cancer History of colon polyps History of colitis History of colon cancer Maternal Aunt History of breast cancer Family history of problems with anesthesia: No Surgical History Surgical History History of bronchoscopy (~04/28/11) History of colonoscopy (~09/10/08) History of esophagogastroduodenoscopy (EGD) (~08/09/11) History of excision of mass (~06/01/19) History of lumpectomy of right breast (~05/10/19) History of right breast biopsy (~04/26/19) History of toe surgery History of Problems with Anesthesia: No Social History Social History Household Members: None Household Members Other:: daughter Housing: Apartment Are you a primary family member caretaker to a significant other at home: No Alcohol intake: former Patient Tobacco Use Status: Former Tobacco user Quit Date: 2018 Tobacco use type: Cigarette Substance Use Type: Marijuana Are you DNR?: No Advance Directives: No Advance Directives Information Provided: Yes Advance Directives on File: No service: No Current occupational status: disabled Meds Allergies Allergy/AdvReac Type Severity Reaction Status Date / Time penicillin G [Penicillin G] Allergy Mild RASH Verified 01/24/23 07:01 potassium [POTASSIUM] Allergy Unknown PEDAL EDEMA Verified 01/24/23 07:15 Active Medications: Current Medications Albuterol Sulfate (Albuterol Sulfate (0.083%) 2.5 Mg/3 Ml Vial.Neb) 2.5 mg INHALE ONCE PRN PRN Reason: Shortness of Breath/Wheezing Lactated Ringer's (Lr) 1,000 mls @ 100 mls/hr IVCONT .Q10H BRITNEY Home Medications Medication Instructions Recorded Confirmed Last Taken Type albuterol sulfate 2.5 mg/3 mL 2.5 mg inhalation Q4H 04/24/20 10/15/22 02/03/21 History (0.083 %) solution for nebulization amlodipine 2.5 mg tablet 2.5 mg PO DAILY 04/24/20 10/15/22 02/03/21 History atorvastatin 40 mg tablet 40 mg PO DAILY 04/24/20 10/15/22 02/03/21 History clonazepam 0.5 mg tablet 0.5 mg PO BEDTIME 04/24/20 10/15/22 02/03/21 History fluoxetine 20 mg capsule 20 mg PO DAILY 04/24/20 10/15/22 02/03/21 History ibuprofen 800 mg tablet 800 mg PO DAILY 04/24/20 10/15/22 02/03/21 History irbesartan 300 mg tablet 300 mg PO QAM 04/24/20 10/15/22 02/03/21 History melatonin 5 mg tablet 5 mg PO BEDTIME PRN Insomnia 04/24/20 10/15/22 02/03/21 History montelukast 10 mg tablet 10 mg PO DAILY 04/24/20 10/15/22 02/03/21 History multivitamin 1 tab PO DAILY 02/04/21 10/15/22 02/03/21 History omeprazole 40 mg capsule,delayed 40 mg PO QAM 02/04/21 10/15/22 02/03/21 History release cetirizine 10 mg tablet 10 mg PO QAM PRN allergies 10/07/21 10/15/22 Unknown History meclizine 25 mg tablet 25 mg PO TID PRN dizziness 10/07/21 10/15/22 Unknown History fluticasone fur. 200 mcg-umeclid 1 ea inhalation DAILY 01/24/23 01/24/23 Unknown History 62.5 mcg-vilant 25 mcg inhalat.powder (Trelegy Ellipta) Exam Exam Date and Time: January 24, 2023 0659 Height,Weight and Vital Signs: Height 5 ft 2 in Weight 65.771 kg Airway Mallampati Class: II (edentulous) TM Dist: >3cm Neck ROM: Full Heart: RRR Lungs: lower wheeze left base Assessment and Plan Assessment Anesthesia Assessment: Anesthesia Plan Discussed and Chart Reviewed Final Anesthetic Review Family History of Problems with Anesthesia: No History of Problems with Anesthesia: No NPO: Yes ASA Class: III Final Preanesthetic Review: No Changes in Pt Med Stat, Meds/Allgs Chart Reviewed and Consent Obtained/Reviewed Patient Risk: Intermediate Procedure Risk: Intermediate Anesthetic Plan Anesthetic Plan: MAC: Disposition: Standard PACU
[2023-01-24 07:28] VITALS: BP 147/66; PULSE 95; RESP 16; TEMP 36.3; O2SAT 96
[2023-01-24] MEDS: Lactated Ringers 1,000 ML 100 ML IVCONT (07:31)
[2023-01-24] MEDS: Albuterol Sulfate (0.083%) 2.5 MG/3 ML VIAL.NEB INHALE (07:32)
[2023-01-24 07:34] VITALS: PULSE 85; RESP 18; O2SAT 96
--- NOTE | 2023-01-24 07:43 | MHC.SHP ---
Pre-Procedural Eval Section A Date of Service: 01/24/23 The patient is an INPATIENT: No The History & Physical has been completed within 30 days and I have reviewed it.: No Section B Chief Complaint: Screening, constipation, JOSÉ MIGUEL, GERD Relevant Family History (Specify if Yes): Yes Relevant Social History: Tobacco Use (Former smoker) Present Medications: see Short Stay Collaborative assessment Medical History: Significant History (Anemia of chronic disease Asthma-COPD overlap syndrome Depression History of breast cancer HLD (hyperlipidemia) Hypertension Pulmonary embolism Pulmonary nodules Smoker) History of Previous Operations: Relevant previous surgery/procedure and date(s) (History of bronchoscopy (~04/28/11) History of colonoscopy (~09/10/08) History of esophagogastroduodenoscopy (EGD) (~08/09/11) History of excision of mass (~06/01/19) History of lumpectomy of right breast (~05/10/19) History of right breast biopsy (~04/26/19)) Allergies: Allergies Allergy/AdvReac Type Severity Reaction Status Date / Time penicillin G [Penicillin G] Allergy Mild RASH Verified 01/24/23 07:01 potassium [POTASSIUM] Allergy Unknown PEDAL EDEMA Verified 01/24/23 07:15 Review of Systems Sugical H&P ROS: Negative: Constitution, Cardiovascular, Respiratory and Gastrointestinal Exam Surgical H&P Exam: Normal: Heart, Normal: Lungs, Normal: Extremities and Normal: Abdomen Plan Diagnosis/Plan: Unchanged I have reviewed the history and physical and performed a pertinent physical examination on my patient. No changes have occurred unless specified. Time Spent With Patient Time: Total time managing care of this patient today ____ minutes.
--- NOTE | 2023-01-24 08:55 | P.OP_ITS ---
Operative Note Operative Note Date of Service: 01/24/23 Narrative: FLEXIBLE TRANSORAL UPPER GASTROINTESTINAL ENDOSCOPY WITH BIOPSIES AND COLONOSCOPY TILL CECUM WITH BIOPSIES Pre-op diagnosis: Screening, JOSÉ MIGUEL, GERD Post-op diagnosis: GERD, hiatal hernia, Gastritis, colon polyp, diverticulosis, hemorrhoids Endoscopist:Geronimo Loco MD Anesthesia:?MAC UPPER ENDOSCOPY Consent: Indications for the procedure and potential complications of bleeding, perforation, reaction to medications and missed diagnosis were discussed with the patient and informed consent was obtained. Instrument: Olympus GIF H 190 mid size upper endoscope Monitoring: Vital signs and clinical assessment, continuous EKG monitoring, Pulse oximetry, Carbon Dioxide monitoring and blood pressure monitoring were done throughout the procedure. Procedure: The patient was placed in the left lateral decubitis position and pre-procedure medications were administered and a bite block was placed. The endoscope was inserted into the mouth and advanced under direct vision to the third part of duodenum. A careful inspection was made as the upper endoscope was withdrawn including a retroflexed examination of the proximal stomach; Findings and interventions are described below. Findings: Larynx: Normal Esophagus: GE junction at 30 cms, large hiatal hernia 30 to 35 cms. Focal esophagitis at GE junction with a small 5 mm ulcer. Stomach: Moderate diffuse gastric erythema. Biopsies were obtained from the antrum and body. Grade 4 flap valve on retroflexed examination of the cardia. Duodenum: Normal bulb and descending duodenum. Biopsies were obtained from 3rd part of duodenum to check for celiac sprue. Intervention: Biopsies as noted above COLONOSCOPY PROCEDURE NOTE Consent: Indications for the procedure and potential complications of bleeding, perforation, reaction to medications and missed diagnosis were discussed with the patient and informed consent was obtained. Instrument: Olympus PCF H 190 L variable stiffness pediatric colonoscope Monitoring: Vital signs and clinical assessment, intermittent blood pressure monitoring, continuous EKG monitoring, Pulse oximetry and Carbon Dioxide monitoring were done throughout the procedure. Colon withdrawl time was 11 minutes. Procedure: The patient was placed in the left lateral decubitis position and pre-procedure medications were administered. After a digital rectal examination of the ano-rectum, the video colonoscope was inserted into the rectum and advanced through the colon to the cecum. The colonoscope was slowly withdrawn in a retrograde panoramic fashion and the colon mucosa was carefully examined including a retroflexed view of the rectum. Findings and interventions are described below. Procedure Difficulty: : LLQ pressure applied to intubate the cecum Findings: Terminal Ileum: Not evaluated Cecum: Normal Ascending Colon: Normal Transverse Colon: Normal Descending Colon: Normal Sigmoid Colon: Moderate diverticulosis Rectum: A 4-5 mm diminutive appearing polyp - removed with a cold bx Ano-rectum: Moderate internal hemorrhoids Colon preparation: Good after copious irrigation Impression and Post Procedure Diagnosis: Endoscopy Findings: ESOPHAGUS: GE junction at 30 cms, large hiatal hernia 30 to 35 cms. Focal esophagitis at GE junction with a small 5 mm ulcer. STOMACH: Moderate diffuse gastric erythema. Biopsies were obtained from the antrum and body. Grade 4 flap valve on retroflexed examination of the cardia. DUODENUM: Normal - biopsied to check for celiac sprue Colonoscopy Findings: One small polyp removed Moderate diverticulosis seen in the sigmoid colon Moderate hemorrhoids on retroflexed exam. Plan: Await pathology results Patient to schedule a FU appointment in the GI Clinic with Deisy Cantor FNP- [facility]. Repeat Colonoscopy interval based on path results - in 5 years if polyps are adenomatous and 10 years if polyps are hyperplastic. Colon polyps and diverticulosis handouts were given in the discharge area
[2023-01-24 09:41] VITALS: BP 130/68; PULSE 84; RESP 16; TEMP 36.1; O2SAT 97
[2023-01-24 09:56] VITALS: BP 143/78; PULSE 72; RESP 16; TEMP 36.1; O2SAT 98
== END 2023-01-24 10:45 | disposition home or self-care (01) ==
PROVIDERS: PCP Family Medicine; Visit Provider Internal Medicine Gastroenterology
PROC: (CPT 45380; principal; 2023-01-24 08:30)
DX: Z12.11 Encounter for screening for malignant neoplasm of colon (principal); D50.9 Iron deficiency anemia, unspecified; K21.9 Gastro-esophageal reflux disease without esophagitis; K63.5 Polyp of colon; K57.30 Diverticulosis of large intestine without perforation or abscess without bleeding; K29.70 Gastritis, unspecified, without bleeding; K44.9 Diaphragmatic hernia without obstruction or gangrene; K64.8 Other hemorrhoids; K22.10 Ulcer of esophagus without bleeding; I10 Essential (primary) hypertension; E78.5 Hyperlipidemia, unspecified; J44.9 Chronic obstructive pulmonary disease, unspecified; R91.8 Other nonspecific abnormal finding of lung field; Z87.891 Personal history of nicotine dependence; Z86.711 Personal history of pulmonary embolism; Z85.3 Personal history of malignant neoplasm of breast; Z79.899 Other long term (current) drug therapy
CPT/HCPCS: 45380; 43239; 88305; 88342; 93005; 94640

== ENCOUNTER → 2023-01-24 06:49 | Outpatient (BNV) | payer OTHER, SELFPAY | PROVIDERS: PCP Family Medicine; Visit Provider Internal Medicine Gastroenterology | DX: K21.9 Gastro-esophageal reflux disease without esophagitis (principal); Z12.11 Encounter for screening for malignant neoplasm of colon; K63.5 Polyp of colon | CPT/HCPCS: 43239; 45380 ==

== ENCOUNTER → 2023-01-24 06:51 | Outpatient (BNV) | payer OTHER, SELFPAY | PROVIDERS: PCP Family Medicine; Visit Provider Internal Medicine Cardiovascular Disease | DX: I49.1 Atrial premature depolarization (principal) | CPT/HCPCS: 93010 ==

== ENCOUNTER 2023-04-04 09:10 | Outpatient (REF) | payer OTHER, SELFPAY ==
--- NOTE | ~2023-04-04 | MM_ITS ---
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 Patient also due for yearly. COMPARISON: Mammography: 03/29/2022, 03/27/2021, 04/03/2020, 05/10/2019, 04/26/2019, 04/13/2019 TECHNIQUE: Digital breast tomosynthesis is performed in both the craniocaudal and mediolateral oblique views along with computer-aided detection (CAD). Synthesized 2D images are generated from the tomosynthesis. FINDINGS: There are scattered areas of fibroglandular density (ACR BI-RADS breast composition Category b). There are stable treatment related changes in the upper outer right breast. The right breast is notably smaller than the left. Previously seen small densities in the mildly inferior central left breast are no longer evident. MM/MM tomosynthesis screening BI IMPRESSION: No mammographic evidence of malignancy. Stable benign post treatment and conservation therapy changes right breast. Previously seen densities in both breasts are no longer visualized and appears to have resolved ASSESSMENT: BI-RADS BI-RADS 2 - Benign Findings RECOMMENDATION: Routine annual mammography screening. 1 year F/U This examination should not preclude the clinical evaluation of a suspicious palpable abnormality. This patient's information was entered into a reminder system with a target due date for their next mammogram.
== END 2023-04-04 09:11 | disposition home or self-care (01) ==
LOC: HO.MAMMO 09:10
PROVIDERS: PCP Family Medicine; Visit Provider Family Medicine
DX: Z12.31 Encounter for screening mammogram for malignant neoplasm of breast (principal)
CPT/HCPCS: 77063; 77067

== ENCOUNTER → 2023-04-04 09:15 | Outpatient (BNV) | payer OTHER, SELFPAY | PROVIDERS: PCP Family Medicine; Visit Provider Radiology Diagnostic Radiology | DX: Z12.31 Encounter for screening mammogram for malignant neoplasm of breast (principal) | CPT/HCPCS: 77063; 77067 ==

== ENCOUNTER 2024-01-02 08:24 | Outpatient (REF) | payer OTHER, SELFPAY ==
[2024-01-02 12:18] LABS: MANUAL DIFF FLAG NO
[2024-01-02 12:23] LABS: Basophils Absolute Auto 0.1 X10*3/uL (0.0-0.2); Basophils Percent Auto 0.5 % (0-2); Eosinophils Absolute Auto 0.3 X10*3/uL (0.0-0.4); Eosinophils Percent Auto 3.3 % (0-4); Hematocrit 35.3 % (37.0-47.0); Hemoglobin 11.4 g/dl (12.0-16.0); Imm Gran Abs Auto 0.04 X10*3/uL (0.00-0.03); Imm Gran Pct Auto 0.4 % (0.0-0.4); Lymphocytes Absolute Auto 1.5 X10*3/uL (1.2-4.9); Lymphocytes Percent Auto 14.7 % (20-40); Mean Corpuscular HGB Conc 32.3 g/dl (31.0-35.0); Mean Corpuscular Hemoglobin 30.1 pg (27.0-33.0); Mean Corpuscular Volume 93.1 fL (80.0-98.0); Mean Platelet Volume 9.6 fL (9.4-12.3); Monocytes Absolute Auto 0.5 X10*3/uL (0.1-1.2); Monocytes Percent Auto 5.4 % (2-11); Neutrophils Absolute Auto 7.5 x10*3/uL (2.0-8.3); Neutrophils Percent Auto 75.7 % (45-73); Platelet Count 288 X10*3/uL (160-400); Red Blood Count 3.79 X10*6/uL (4.20-5.50); Red Cell Distribution Width 14.5 % (11.0-16.0); White Blood Count 9.9 X10*3/uL (4.8-10.8)
[2024-01-02 12:44] LABS: Estimated Average Glucose 117 mg/dL; Hemoglobin A1c % 5.7 % (<6.0)
[2024-01-02 12:45] LABS: Alanine Aminotransferase 17 U/L (0-31); Albumin Level 3.5 g/dL (3.5-5.0); Alkaline Phosphatase 57 U/L (39-117); Anion Gap 10 (12-20); Aspartate Amino Transferase 24 U/L (5-31); Bilirubin Direct 0.3 mg/dL (0.0-0.5); Bilirubin Total 0.6 mg/dL (0.0-1.0); Blood Urea Nitrogen 22 mg/dL (9-16); Calcium 9.1 mg/dL (8.4-10.2); Carbon Dioxide 27 mmol/L (22-29); Chloride 108 mmol/L (96-108); Cholesterol 115 mg/dL (<200); Estimated Glomerular Filt Rate > 60; Glucose Random 123 mg/dL (60-115); HDL Cholesterol 43 mg/dL (>40); LDL Cholesterol Calculated 60 mg/dL (<100); Potassium 3.8 mmol/L (3.3-5.1); Sodium 141 mmol/L (135-145); Total Protein 7.1 g/dL (6.5-8.0); Triglycerides 64 mg/dL (<150)
[2024-01-02 12:56] LABS: ~HepC Num1 0.22 S/CO (0.00-0.79); ~Hepatitis C Antibody Nonreactive (Nonreactive)
[2024-01-02 13:11] LABS: Vitamin B12 350 pg/mL (200-900)
[2024-01-02 13:20] LABS: Ferritin 85 ng/mL (10-250); TSH reflex Free T4 2.48 uIU/mL (0.32-4.0)
== END 2024-01-02 08:25 | disposition home or self-care (01) ==
LOC: HO.HHCL 08:24
PROVIDERS: Visit Provider Family Medicine
DX: I25.10 Atherosclerotic heart disease of native coronary artery without angina pectoris (principal); D64.9 Anemia, unspecified; Z11.59 Encounter for screening for other viral diseases; I10 Essential (primary) hypertension; Z13.1 Encounter for screening for diabetes mellitus
CPT/HCPCS: 36415; 80048; 80061; 80076; 82607; 82728; 83036; 84443; 85025; 86803

== ENCOUNTER 2024-04-16 09:12 | Outpatient (REF) | payer OTHER, SELFPAY ==
--- NOTE | ~2024-04-16 | MM_ITS ---
EXAMINATION: MM SCREENING DIGITAL BREAST TOMOSYNTHESIS, BILATERAL CLINICAL INFORMATION: Screening. Asymptomatic. COMPARISON: Mammography: Comparison is made with available priors TECHNIQUE: Digital breast mammography with tomosynthesis is performed in both the craniocaudal and mediolateral oblique views along with computer-aided detection (CAD). FINDINGS: There are scattered areas of fibroglandular density (ACR BI-RADS breast composition Category b). Right lumpectomy changes are stable. There are no significant masses, abnormal calcifications, or other abnormalities. MM/MM tomosynthesis screening BI IMPRESSION: No mammographic evidence of malignancy. ASSESSMENT: BI-RADS BI-RADS 2 - Benign Findings RECOMMENDATION: Routine annual mammography screening. 1 year F/U This examination should not preclude the clinical evaluation of a suspicious palpable abnormality. This patient's information was entered into a reminder system with a target due date for their next mammogram. Electronically signed by: Jacey Berrios DO 04/16/2024 05:17 PM EDT
== END 2024-04-16 09:13 | disposition home or self-care (01) ==
LOC: HO.MAMMO 09:12
PROVIDERS: PCP Family Medicine; Visit Provider Family Medicine
DX: Z12.31 Encounter for screening mammogram for malignant neoplasm of breast (principal)
CPT/HCPCS: 77063; 77067

== ENCOUNTER → 2024-04-16 09:15 | Outpatient (BNV) | payer OTHER, SELFPAY | PROVIDERS: PCP Family Medicine; Visit Provider Internal Medicine | DX: Z12.31 Encounter for screening mammogram for malignant neoplasm of breast (principal) | CPT/HCPCS: 77063; 77067 ==

== ENCOUNTER 2024-04-24 14:06 | Outpatient (AMB) | payer OTHER, SELFPAY ==
[2024-04-24 14:10] VITALS: BP 104/67; PULSE 104; O2SAT 92; BMI 26.3
--- NOTE | 2024-04-24 14:10 | MHC.OFFVIS ---
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 She continues on Trelegy, Singulair, theophylline 400, and duo nebs with good baseline control of her underlying symptoms.? Today she complains of an acute exacerbation of the last week symptomatic with significant wheezing and mild dyspnea on exertion, but she denies cough or sputum production.? Patient continues to follow-up with [facility] lung cancer screening program. [facility] Medical History (Updated 04/24/24 @ 14:31 by Oscar Lemos MD) GERD (gastroesophageal reflux disease) Pulmonary embolism Depression Anemia of chronic disease HLD (hyperlipidemia) Pulmonary nodules Asthma-COPD overlap syndrome Smoker Hypertension History of breast cancer Surgical History History of excision of mass (~06/01/19) History of lumpectomy of right breast (~05/10/19) History of right breast biopsy (~04/26/19) History of esophagogastroduodenoscopy (EGD) (~08/09/11) History of bronchoscopy (~04/28/11) History of colonoscopy (~09/10/08) History of toe surgery Family History Mother History of breast cancer Sister History of breast cancer History of colon polyps History of colitis History of colon cancer Maternal Aunt History of breast cancer Social History Household Members: None Household Members Other:: daughter Housing: Apartment Are you a primary physician primary care sports medicine to a significant other at home: No Alcohol intake: former Patient Tobacco Use Status: Former Tobacco user Tobacco use type: Cigarette Substance Use Type: Marijuana service: No Current occupational status: disabled Review of Systems Const Denies daytime sleepiness, Denies excessive sweating, Denies fatigue, Denies fever(s), Denies lethargy, Denies malaise, Denies night sweats, Denies snoring and Denies weight loss Eyes Denies blurry vision and Denies itchy eyes ENT Denies nasal congestion, Denies post nasal drip, Denies sinus pain, Denies sinus pressure and Denies other ( Thrush) Card Denies chest pain, Denies pedal edema, Denies dyspnea, Reports dyspnea on exertion, Denies orthopnea and Denies paroxysmal nocturnal dyspnea Resp Denies cough, Denies hemoptysis, Denies excessive phlegm production, Denies dyspnea, Reports dyspnea on exertion, Denies snoring and Reports wheezing GI Denies abdominal pain and Denies heartburn Musc Denies myalgias, Denies arthralgias and Denies joint swelling Skin/Breast Denies rash Neuro Denies memory loss and Denies seizure-like activity Psych Denies abnormal sleep pattern, Denies anxiety and Denies memory loss Endo Denies excessive sweating, Denies fatigue and Denies heat intolerance Adalid/Lymph Denies easy bruising Aller/Immun Denies itchy eyes, Denies seasonal rhinorrhea and Reports wheezing Physical Exam Vital Signs: Last Vital Signs Pulse 104 H 04/24/24 14:10 BP 104/67 04/24/24 14:10 Pulse Ox 92 04/24/24 14:10 Oxygen Delivery Method Room Air 04/24/24 14:10 BMI result Body Mass Index 26.3 Const General: no acute distress and alert Nutritional Appearance: not obese Orientation/consciousness: Other orientation findings ( oriented) HEENT Head: Yes atraumatic Eyes General: appearance normal, both eyes and all related structures Sclerae: sclerae normal EOM: EOMs intact bilaterally Neck Neck: Yes supple Lymphatic: no lymphadenopathy noted Resp Effort & Inspection: normal respiratory effort and no use of accessory muscles Auscultation: wheezes expiratory wheezes (Mild bilateral) Cardio Rate: regular rate Rhythm: regular rhythm Heart sounds: no gallops, no murmurs and no rubs Skin General skin exam: other ( warm) Extrem General: No clubbing, No cyanosis and No edema Assessment & Plan Assessment & Plan (1) Asthma-COPD overlap syndrome: Code(s): J44.9 - Chronic obstructive pulmonary disease, unspecified Category: Medical Plan: Baseline controlled on trilogy, duo nebs, Singulair, theophylline, and albuterol MDI. Continue current regimen. (2) Acute exacerbation of chronic obstructive airways disease with asthma: Code(s): J44.1 - Chronic obstructive pulmonary disease with (acute) exacerbation Category: Medical Plan: Now with an acute exacerbation, will treat with a short course of prednisone. Medications: New prednisone Take 4 tabs daily for 3 days, then go down tab every 3 days 10 mg PO DIRECTED 30 tabs 0RF Coding Level of Care Code Est Pt Level 4 (79881) Diagnoses Asthma-COPD overlap syndrome J44.9 Acute exacerbation of chronic obstructive airways disease with asthma J44.1
== END 2024-04-24 14:19 | disposition home or self-care (01) ==
PROVIDERS: PCP Family Medicine; Visit Provider Internal Medicine Pulmonary Disease
DX: J44.9 Chronic obstructive pulmonary disease, unspecified (principal); J44.1 Chronic obstructive pulmonary disease with (acute) exacerbation
CPT/HCPCS: 99214

== ENCOUNTER → 2024-04-24 14:06 | Outpatient (BNVA) | payer OTHER, SELFPAY | PROVIDERS: PCP Family Medicine; Visit Provider Internal Medicine Pulmonary Disease | DX: J44.9 Chronic obstructive pulmonary disease, unspecified (principal); J44.1 Chronic obstructive pulmonary disease with (acute) exacerbation | CPT/HCPCS: 99212 ==

== ENCOUNTER 2024-05-12 14:27 | Outpatient (REF) | payer OTHER, SELFPAY ==
--- NOTE | ~2024-05-12 | MR_ITS ---
EXAMINATION: MR BRAIN WITHOUT CONTRAST CLINICAL INFORMATION: Headache. COMPARISON: CT head from 02/04/2021. TECHNIQUE: MRI of the brain was obtained using routine sequences without contrast. FINDINGS: No focal restricted diffusion is demonstrated to suggest acute or subacute cerebral ischemia. No evidence of acute or chronic hemorrhagic products on heme-sensitive imaging. 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 Scattered and partially confluent periventricular, deep white matter, and brainstem T2 FLAIR hyperintensities consistent with moderate underlying microangiopathy. Proportional prominence of the ventricles and sulcal spaces without evidence of obstructive hydrocephalus. No abnormal mass effect. No midline shift. Normal appearance of the pituitary gland. Normal positioning of the cerebellar tonsils. Normal arterial and venous vascular flow voids are present. Normal, homogeneous marrow signal. Mild mucosal thickening of the paranasal sinuses. No signal abnormalities within the mastoids. Bilateral lens extractions. MR/MR head/brain wo con IMPRESSION: 1. No acute intracranial abnormalities. 2. Moderate underlying microangiopathy and generalized cerebral volume loss. 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 Electronically signed by: Fernandez Beaulieu DO 06/20/2024 06:00 AM KEILA
== END 2024-05-12 14:28 | disposition home or self-care (01) ==
LOC: HO.MRI 14:27
PROVIDERS: PCP Family Medicine; Visit Provider Family Medicine
DX: R51.9 Headache, unspecified (principal); G89.29 Other chronic pain
CPT/HCPCS: 70551